=== PATIENT | male | born 1935 | race Caucasian/White ===

== ENCOUNTER 2020-08-31 18:53 | Inpatient (IN) ==
[2020-08-31] MEDS ORDERED: ACETAMINOPHEN 500 MG TAB PO STA (19:19)
--- NOTE | 2020-08-31 19:27 | Emergency Department Note ---
History of Present Illness General Chief complaint: Illness Stated complaint: ILLNESS Time Seen by Provider: 08/31/20 19:04 Source: patient History of Present Illness Provider complaint: Sore throat and cough Onset (ago): day(s) Location: mouth and chest Radiation: non-radiation Severity: mild Pain Consistency: + intermittent Quality: + dull Relieved By: + none Associated symptoms: + cough, + fever/chills and + shortness of breath; no chest pain, no headaches and no nausea/vomiting This is an 85-year-old male who presents with sore throat and cough with shortness of breath since yesterday. The patient states that his was recently diagnosed with COVID-19 admitted to the hospital 3 days ago. Yesterday patient developed a sore throat and a nonproductive cough. He also developed some shortness of breath. He denies any chest pain, loss of taste or smell, diarrhea, abdominal pain, urinary symptoms or vomiting. He does have a fever. Home Medications Home Medications Medication Instructions Recorded Confirmed Type aspirin 81 mg tablet,delayed 81 mg PO DAILY 08/05/20 08/31/20 History release diphenhydramine HCl 25 mg capsule 25 mg PO HS PRN cap 08/05/20 08/31/20 History escitalopram oxalate 5 mg tablet 5 mg PO DAILY #30 tab 08/05/20 08/31/20 Rx valacyclovir 500 mg tablet 500 mg PO BID #60 tab 08/22/20 08/31/20 Rx Allergies Allergy/AdvReac Type Severity Reaction Status Date / Time No Known Allergies Allergy Mild Verified 08/05/20 13:58 Past Med/Surg History Medical History CLL (chronic lymphocytic leukemia) Depression Prostate cancer Skin cancer Surgical History History of prostate surgery Family History Denies family history of Ovarian cancer Prostate cancer Myocardial infarction Breast cancer Colorectal cancer Social History Smoking Status: Never smoker Hx Alcohol Use: No Hx Substance Use: No Preferred Language: Indian marital status: Current Living Situation: Spouse current occupational status: retired How many Children do You have: 0 Feels Safe at Home: Yes Dental Care, Regularly: Yes Seatbelt Use: always Sunscreen Use: No Review of Systems See HPI for pertinent positives & negatives. and A total of 10 systems reviewed and were otherwise negative Physical Exam Vital Signs Vital Signs - 24 hr 08/31/20 19:01 08/31/20 19:03 08/31/20 19:06 Temperature 38.6 C H Temperature Source Oral Pulse Rate 83 81 80 Pulse Rate from SpO2 Sensor 81 80 Respiratory Rate 20 24 Respiratory Effort / Characteristics Non-Labored Spontaneous Respiratory Depth Normal Respiratory Pattern Regular Blood Pressure 125/60 125/60 Blood Pressure Mean 81 78 Pulse Oximetry 88 L 88 L 90 Oxygen Delivery Method Room Air Oxygen Flow Rate Sepsis Recent Fever Within 48 Hours Yes Sepsis New/Unexplained Change in Mental Status No Sepsis Action Taken by Nursing No Action Required 08/31/20 19:25 08/31/20 19:30 08/31/20 20:00 Temperature Temperature Source Pulse Rate 80 75 Pulse Rate from SpO2 Sensor 81 75 Respiratory Rate 16 24 Respiratory Effort / Characteristics Respiratory Depth Respiratory Pattern Blood Pressure 112/58 L Blood Pressure Mean 81 Pulse Oximetry 92 92 Oxygen Delivery Method Nasal Cannula Oxygen Flow Rate 2 Sepsis Recent Fever Within 48 Hours Sepsis New/Unexplained Change in Mental Status Sepsis Action Taken by Nursing 08/31/20 20:01 08/31/20 20:30 08/31/20 21:00 Temperature Temperature Source Pulse Rate 78 75 68 Pulse Rate from SpO2 Sensor 78 75 67 Respiratory Rate 20 19 19 Respiratory Effort / Characteristics Respiratory Depth Respiratory Pattern Blood Pressure 113/48 L 110/59 L 104/53 L Blood Pressure Mean 72 74 69 Pulse Oximetry 90 91 92 Oxygen Delivery Method Oxygen Flow Rate Sepsis Recent Fever Within 48 Hours Sepsis New/Unexplained Change in Mental Status Sepsis Action Taken by Nursing 08/31/20 21:30 08/31/20 22:00 08/31/20 22:30 Temperature Temperature Source Pulse Rate 57 L 61 59 L Pulse Rate from SpO2 Sensor 57 L 60 59 L Respiratory Rate 17 23 20 Respiratory Effort / Characteristics Respiratory Depth Respiratory Pattern Blood Pressure 102/53 L 107/55 L 114/63 Blood Pressure Mean 65 74 79 Pulse Oximetry 94 95 93 Oxygen Delivery Method Nasal Cannula Nasal Cannula Nasal Cannula Oxygen Flow Rate 2 2 2 Sepsis Recent Fever Within 48 Hours Sepsis New/Unexplained Change in Mental Status Sepsis Action Taken by Nursing 10/07/20 23:21 Temperature Temperature Source Pulse Rate 54 L Pulse Rate from SpO2 Sensor Respiratory Rate 18 Respiratory Effort / Characteristics Respiratory Depth Respiratory Pattern Blood Pressure 114/69 Blood Pressure Mean Pulse Oximetry 92 Oxygen Delivery Method Nasal Cannula Oxygen Flow Rate 2 Sepsis Recent Fever Within 48 Hours Sepsis New/Unexplained Change in Mental Status Sepsis Action Taken by Nursing Constitutional: Vital signs reviewed. Hypoxemic. Febrile. Eyes: Pupils are equal round reactive to light. Conjunctiva are noninjected. ENT: Pharynx is clear without erythema or exudate. Mucous membranes are moist. Neck supple without meningeal signs. Respiratory: Clear to auscultation bilaterally. Breath sounds are equal bilaterally. Cardiovascular: Regular rate and rhythm. No rubs or gallops. GI: Soft, nondistended and nontender. Bowel sounds are present. Musculoskeletal: No peripheral edema. No lower extremity tenderness. Integumentary: No cyanosis. or jaundice. Neurological: The patient is awake and alert. No focal deficits. Psychiatric: Normal affect. Not anxious appearing. Course Administered Medications Discontinued Medications Acetaminophen (Acetaminophen 500 Mg Tab) 1,000 mg PO NOW STA Stop: 08/31/20 19:20 Last Admin: 08/31/20 20:01 Dose: 1,000 mg Documented by: [id number] Dexamethasone (Dexamethasone Sod Inj 10 Mg/Ml Vial) 6 mg IV NOW ONE Stop: 08/31/20 21:09 Last Admin: 08/31/20 21:45 Dose: 6 mg Documented by: [id number] Critical Care Time Critical Care Time: Yes Total Critical Care Time: 35 I have personally spent approximately 35 minutes of critical care time in the direct management of this patient. This includes bedside care, interpretation of diagnostic studies, and testing, discussion with consultants, patient, and family members, and other required patient management activities. These minutes are in excess of all separately billable procedures. Medical Decision Making Differential Diagnosis Pneumonia, bacteremia, bronchitis, COVID-19, pharyngitis Medical Records Attestation: I reviewed the patient's medical records. I did perform a limited focused review of portions of the patient's old chart on the electronic medical record. The patient has had no recent pertinent visits to this hospital. Home Medications Current Medication List: was personally reviewed by me Laboratory Data Attestation: I reviewed the patient's lab results. Result diagrams: 08/31/20 19:45 08/31/20 19:45 Lab Results 08/31/20 08/31/20 08/31/20 Range/Units 19:45 19:45 19:45 WBC 6.93 (4.8-10.8) K/uL RBC 3.62 L (4.7-6.1) M/uL Hgb 11.3 L (14.0-18.0) g/dL Hct 33.7 L (42-52) % MCV 93.1 (80-100) fL MCH 31.2 (25-34) pg MCHC 33.5 (32-36) g/dL RDW Std Deviation 49.1 H (36.4-46.3) fL RDW Coeff of Geovany 14.7 H (11.5-14.5) % Plt Count 186 (130-400) K/uL MPV 9.3 (7.4-10.4) fL Immature Gran % (Auto) 0.1 % Neut % (Auto) 65.7 % Lymph % (Auto) 28.9 % [place] % (Auto) 5.3 % Eos % (Auto) 0.0 % Baso % (Auto) 0.0 % Neut # (Auto) 4.55 (1.4-6.5) K/uL Lymph # (Auto) 2.00 (1.2-3.4) K/uL [place] # (Auto) 0.37 (0.11-0.59) K/uL Eos # (Auto) 0.00 (0-0.5) K/uL Baso # (Auto) 0.00 (0-0.2) K/uL Immature Gran # (Auto) 0.01 (0.00-0.02) K/uL PT 11.3 (9.0-12.0) Seconds INR 1.1 (0.9-1.1) APTT 34.5 H (21.0-31.0) Seconds PTT Ratio 1.2 Sodium 137 (136-145) mmol/L Potassium 4.3 (3.5-5.1) mmol/L Chloride 105 (98-107) mmol/L Carbon Dioxide 27 (21-32) mmol/L Anion Gap 5.0 (3-11) BUN 23 H (7-18) mg/dl Creatinine 0.95 (0.6-1.4) mg/dl Est Cr Clr Drug Dosing 48.8 ml/min Est GFR ( Amer) 83.1 Est GFR (Non-Af Amer) 71.7 BUN/Creatinine Ratio 23.9 H (10-20) Glucose 119 H (70-99) mg/dl Calcium 8.7 (8.5-10.1) mg/dl Total Bilirubin 0.5 (0.2-1) mg/dl AST 39 H (15-37) U/L ALT 33 (12-78) U/L Alkaline Phosphatase 93 (45-117) U/L Troponin I < 0.015 (0-0.045) ng/ml Total Protein 7.3 (6.4-8.2) gm/dl Albumin 3.4 (3.4-5.0) gm/dl Globulin 3.9 (2.5-4.0) gm/dl Albumin/Globulin Ratio 0.9 (0.9-2) COVID-19 Eval Order COVID-19 PCR (Negative) Influenza Type A (PCR) (Neg) Influenza Type B (PCR) (Neg) 08/31/20 08/31/20 08/31/20 Range/Units 19:45 19:45 19:45 WBC (4.8-10.8) K/uL RBC (4.7-6.1) M/uL Hgb (14.0-18.0) g/dL Hct (42-52) % MCV (80-100) fL MCH (25-34) pg MCHC (32-36) g/dL RDW Std Deviation (36.4-46.3) fL RDW Coeff of Geovany (11.5-14.5) % Plt Count (130-400) K/uL MPV (7.4-10.4) fL Immature Gran % (Auto) % Neut % (Auto) % Lymph % (Auto) % [place] % (Auto) % Eos % (Auto) % Baso % (Auto) % Neut # (Auto) (1.4-6.5) K/uL Lymph # (Auto) (1.2-3.4) K/uL [place] # (Auto) (0.11-0.59) K/uL Eos # (Auto) (0-0.5) K/uL Baso # (Auto) (0-0.2) K/uL Immature Gran # (Auto) (0.00-0.02) K/uL PT (9.0-12.0) Seconds INR (0.9-1.1) APTT (21.0-31.0) Seconds PTT Ratio Sodium (136-145) mmol/L Potassium (3.5-5.1) mmol/L Chloride (98-107) mmol/L Carbon Dioxide (21-32) mmol/L Anion Gap (3-11) BUN (7-18) mg/dl Creatinine (0.6-1.4) mg/dl Est Cr Clr Drug Dosing ml/min Est GFR ( Amer) Est GFR (Non-Af Amer) BUN/Creatinine Ratio (10-20) Glucose (70-99) mg/dl Calcium (8.5-10.1) mg/dl Total Bilirubin (0.2-1) mg/dl AST (15-37) U/L ALT (12-78) U/L Alkaline Phosphatase (45-117) U/L Troponin I (0-0.045) ng/ml Total Protein (6.4-8.2) gm/dl Albumin (3.4-5.0) gm/dl Globulin (2.5-4.0) gm/dl Albumin/Globulin Ratio (0.9-2) COVID-19 Eval Order Covid19 Done at [facility] COVID-19 PCR POSITIVE A* (Negative) Influenza Type A (PCR) Neg for Influ A (Neg) Influenza Type B (PCR) Neg for Influ B (Neg) Imaging Data Radiologist's Impression: XR chest 1V portable CLINICAL HISTORY: Dyspnea COMPARISON STUDY: Chest x-ray dated 09/16/2006 FINDINGS: The heart is at the upper limits of normal in size. There are b ilateral interstitial opacities. There are no pleural effusions.[ IMPRESSION: 1. Bilateral pulmonary interstitial opacities. Likely diagnostic considerations include a bilateral infectious/inflammatory process versus pulmonary edema. Clinical and radiographic follow-up is recommended ACT 112: Negative or not required by law. Electronically signed by: Fabricio Torres M.D. 08/31/2020 8:36 PM ECG Data Attestation: I personally reviewed and interpreted this ECG as follows: Indication: + SOB/dyspnea Rate (beats per minute): 77 Rhythm: + normal sinus ECG ST segments: no ST elevation ECG Findings: + Q waves; no PVCs MDM Narrative I did evaluate the patient as noted above. The patient has been exposed to COVID. He lives in a trailer with his who was just hospitalized for COVID- 19. He is presenting with shortness of breath, sore throat and cough. His pharynx is clear without evidence of erythema. The patient was placed in respiratory isolation. COVID-19 and influenza testing was obtained. He is COVID positive. Influenza testing is negative. IV access was established. I did treat him with Tylenol p.o. He was placed on supplemental oxygen as he is hypoxemic. I did place an order for continuous cardiac monitoring. The monitor showed normal sinus rhythm at a rate of 82 bpm. I did order and personally review the patient's 12-lead EKG as described above. He has no acute ischemic changes. I did order and personally reviewed the images of the patient's chest x-ray as described above. He does have bilateral pulmonary interstitial opacities consistent with COVID-19 pneumonia. I did order a urine analysis. I did order and review the patient's blood work as noted in the electronic medical record. His white blood cell count is not elevated. He does have anemia. His electrolytes are unremarkable. I did treat the patient with Decadron 6 mg IV. I did discuss the case with the hospitalist and caser in. Impression & Plan Pneumonia due to COVID-19 virus, Hypoxia, Anemia Discharge Plan Visit Data Chief Complaint: Illness Stated Complaint: ILLNESS ED Provider: Mike Bartholomew Discharge Problem: Pneumonia due to COVID-19 virus, Hypoxia, Anemia Patient Disposition: Being Evaluated by Hospitalist Discharge Instructions Interventions: ED Discharge Assessment Last Done: 08/31/20 23:21 Forms Stand Alone Forms: My [facility] Prescriptions Prescriptions: No Action valacyclovir 500 mg tablet 500 mg PO BID Qty: 60 RF: 5 aspirin [Adult Low Dose Aspirin] 81 mg tablet,delayed release (DR/EC) 81 mg PO DAILY RF: 0 diphenhydramine HCl [Benadryl] 25 mg capsule 25 mg PO HS PRN (Reason: Unknown) RF: 0 escitalopram oxalate [Lexapro] 5 mg tablet 5 mg PO DAILY Qty: 30 RF: 2 Referrals Referrals: Martina Alvarez MD [Primary Care Provider] - Discharge Problem: Anemia Qualifiers: Anemia type: unspecified type Qualified Code(s): D64.9 - Anemia, unspecified
[2020-08-31 20:01] LABS: Hematocrit (blood only) 33.7 % (42-52); Hemoglobin 11.3 g/dL (14.0-18.0); Immature Granulocytes # (auto) 0.01 K/uL (0.00-0.02); Immature Granulocytes % (auto) 0.1 %; Lymphocytes % (auto) 28.9 %; Mean Corpuscular Hemoglobin 31.2 pg (25-34); Mean Corpuscular Hgb Conc 33.5 g/dL (32-36); Mean Corpuscular Volume 93.1 fL (80-100); Mean Platelet Volume 9.3 fL (7.4-10.4); Monocytes # (auto) 0.37 K/uL (0.11-0.59); Monocytes % (auto) 5.3 %; Neutrophils # (auto) 4.55 K/uL (1.4-6.5); Neutrophils % (auto) 65.7 %; Platelet Count 186 K/uL (130-400); RDW Coefficient of Variation 14.7 % (11.5-14.5); RDW Standard Deviation 49.1 fL (36.4-46.3); Red Blood Count 3.62 M/uL (4.7-6.1); White Blood Count 6.93 K/uL (4.8-10.8)
[2020-08-31 20:15] LABS: INR 1.1 (0.9-1.1); Partial Thromboplastin Ratio 1.2; Partial Thromboplastin Time 34.5 Seconds (21.0-31.0); Prothrombin Time 11.3 Seconds (9.0-12.0)
[2020-08-31 20:17] LABS: Alanine Aminotransferase 33 U/L (12-78); Albumin Level 3.4 gm/dl (3.4-5.0); Aspartate Aminotransferase 39 U/L (15-37); BUN Creatinine Ratio 23.9 (10-20); Blood Urea Nitrogen 23 mg/dl (7-18); Calcium 8.7 mg/dl (8.5-10.1); Carbon Dioxide 27 mmol/L (21-32); Chloride 105 mmol/L (98-107); Creatinine Clr Calc Pharmacy 48.8 ml/min; Est GFR (African American) 83.1; Est GFR (Non-African American) 71.7; Glucose 119 mg/dl (70-99); Potassium 4.3 mmol/L (3.5-5.1); Sodium 137 mmol/L (136-145)
[2020-08-31 20:22] LABS: Albumin Globulin Ratio 0.9 (0.9-2); Alkaline Phosphatase 93 U/L (45-117); Bilirubin,Total 0.5 mg/dl (0.2-1); Globulin 3.9 gm/dl (2.5-4.0); Total Protein 7.3 gm/dl (6.4-8.2); Troponin I < 0.015 ng/ml (0-0.045)
--- NOTE | 2020-08-31 20:37 | XRay Report ---
XR chest 1V portable CLINICAL HISTORY: Dyspnea COMPARISON STUDY: Chest x-ray dated 09/16/2006 FINDINGS: The heart is at the upper limits of normal in size. There are bilateral interstitial opacit ies. There are no pleural effusions.[ IMPRESSION: 1. Bilateral pulmonary interstitial opacities. Likely diagnostic considerations include a bilateral i nfectious/inflammatory process versus pulmonary edema. Clinical and radiographic follow-up is recomme nded ACT 112: Negative or not required by law. Electronically signed by: Fabricio Torres M.D. 08/31/2020 8:36 PM
[2020-08-31 20:52] LABS: Influenza A virus by PCR Neg for Influ A (Neg); Influenza B virus by PCR Neg for Influ B (Neg)
[2020-08-31] MEDS ORDERED: DEXAMETHASONE SOD INJ 10 MG/ML VIAL IV ONE (21:08)
--- NOTE | 2020-08-31 22:50 | History & Physical Report ---
Date of Service August 31, 2020 Assessment & Plan (1) Pneumonia due to COVID-19 virus: Transient hypoxia at time of presentation. During my admission assessment his O2 sats were mid-90s in room air. At minimum will Rx with 10-day course of decadron 6mg IV daily. I gave FDA-produced convalescent plasma handout to the patient while I was in the room and tried to explain the consent process for the plasma but he didn't seem to comprehend the reason for the plasma nor the risks/benefits. After speaking with his step-daughter who is his POA his intellectual level is about that of middle school. This, coupled with encephalopathy, makes the informed consent process not possible. If patient continues with hypoxia or continues with supplemental oxygen requirement then will consent his step-daughter for plasma and order it on 09/01. At this time he is borderline a candidate for remdesivir. Will hold off on giving tonight but will have low threshold for starting if any worsening. Continue supportive care, airborne isolation, etc. (2) Acute metabolic encephalopathy: 2nd to COVID-19. Supportive care. (3) CLL (chronic lymphocytic leukemia): CBC relatively benign. No lymphocytosis or smudge cells seen. PCP records indicate he is not following with oncology. (4) Prostate cancer: Treated with surgery? xrt? No issues at this time. (5) Depression: Continue lexapro 5mg daily. (6) Intellectual disability: Noted. (7) DVT prophylaxis: Lovenox 30mg BID. Higher dose of chemical means due to COVID. NS x 1 liter. SW consult - complex social situation. Updated Zakiya Barraza, step-daughter, by phone extensively. History of Present Illness Chief Complaint: sore throat, cough Primary Care Provider: Martina Alvarez MD 85yo male with h/o CLL per records, prostate cancer (treated with XRT??), and depression who presents from home via EMS due to cough, mild shortness of breath, and sore throat. He was unclear during the history if he had fever at home. He did have chills, however. was diagnosed with COVID-19 several days ago and is currently hospitalized. He is uncertain where the two of them contracted the virus. Cough is nonproductive. Denies headache, loss of taste/smell, runny nose, nausea, vomiting, or abdominal pain. Denies myalgias. Patient had difficulty telling me when his symptoms began but it sounds like he fell ill earlier today. In the ER tonight patient's rapid COVID-19 test was positive. He was given d ecadron 6mg IV x 1. During my assessment the patient appeared to have significant hearing impairment. He also was confused, telling me that the year was 1919. He did not know the day of the week. He reports that he continues to drive a motor vehicle. Only drives to the grocery store, however. Allergies Allergy/AdvReac Type Severity Reaction Status Date / Time No Known Allergies Allergy Mild Verified 08/05/20 13:58 Home Medications Home Medications Medication Instructions Recorded Confirmed Type aspirin 81 mg tablet,delayed 81 mg PO DAILY 08/05/20 08/31/20 History release diphenhydramine HCl 25 mg capsule 25 mg PO HS PRN cap 08/05/20 08/31/20 History escitalopram oxalate 5 mg tablet 5 mg PO DAILY #30 tab 08/05/20 08/31/20 Rx valacyclovir 500 mg tablet 500 mg PO BID #60 tab 08/22/20 08/31/20 Rx Past Med/Surg History Medical History (Updated 09/01/20 @ 00:40 by Rj Alvarado) CLL (chronic lymphocytic leukemia) Depression Intellectual disability Prostate cancer Skin cancer Surgical History History of prostate surgery Family History (Updated 09/01/20 @ 00:33 by Rj Alvarado) Father , "old age" No problems noted. Mother , "old age" No problems noted. 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 How many Children do You have: 0 Feels Safe at Home: Yes Safety Concerns: Feels Safe At This Time Dental Care, Regularly: Yes Seatbelt Use: always Sunscreen Use: No Assistive Devices: Cane and Walker Review of Systems Constitutional: + fever, + chills and + fatigue; no body aches and no anorexia Eyes: no worsening vision Ear, Nose, Mouth, Throat: + sore throat; no nasal congestion Respiratory: + cough and + dyspnea Cardiovascular: no chest pain Gastrointestinal: no abdominal pain, no nausea and no vomiting Genitourinary: no dysuria Musculoskeletal: no myalgia Integumentary: no rash skin cancer removed from back Neurologic: + generalized weakness Psychiatric: + depression Endocrine: denies diabetes Hematologic / Lymphatic: no easy bruising Physical Exam Constitutional: + thin and + altered mental status; no acute distress Eyes: PERRL ENMT: Mouth: + oropharynx abnormality (erythematous ) and + dry oral mucous membranes Neck: trachea midline, no thyromegaly Respiratory: no respiratory distress Auscultation: + rales (fine - both bases, L>R ); no wheezes Cardiovascular: Rate/Rhythm: regular rate and regular rhythm Heart Sounds: normal S1 and normal S2; no murmur Vessels: posterior tibial pulses present and dorsalis pedis pulses present; no JVD Extremities: no edema Gastrointestinal (Abdomen): normal bowel sounds, soft, nontender, no hepatosplenomegaly Musculoskeletal: Extremities: + clubbing Skin: no rashes, warm and dry Neurologic: moves all extremities Psychiatric: Orientation: alert, oriented to person and oriented to place; + not oriented to time Lymphatic: no cervical lymphadenopathy Results & Data Results & [facility] Vital Signs (Past 12 Hours) Vital Signs Temp Pulse Resp BP Pulse Ox 08/31/20 22:30 59 L 20 114/63 93 08/31/20 22:00 61 23 107/55 L 95 08/31/20 21:30 57 L 17 102/53 L 94 08/31/20 21:00 68 19 104/53 L 92 08/31/20 20:30 75 19 110/59 L 91 08/31/20 20:01 78 20 113/48 L 90 08/31/20 20:00 75 24 08/31/20 19:30 80 16 112/58 L 92 08/31/20 19:25 92 08/31/20 19:06 80 90 08/31/20 19:03 81 24 125/60 88 L 08/31/20 19:01 38.6 C H 83 20 125/60 88 L Laboratory Results Laboratory Results - last 24 hr 08/31/20 08/31/20 08/31/20 19:45 19:45 19:45 WBC 6.93 RBC 3.62 L Hgb 11.3 L Hct 33.7 L MCV 93.1 MCH 31.2 MCHC 33.5 RDW Std Deviation 49.1 H RDW Coeff of Geovany 14.7 H Plt Count 186 MPV 9.3 Immature Gran % (Auto) 0.1 Neut % (Auto) 65.7 Lymph % (Auto) 28.9 [place] % (Auto) 5.3 Eos % (Auto) 0.0 Baso % (Auto) 0.0 Neut # (Auto) 4.55 Lymph # (Auto) 2.00 [place] # (Auto) 0.37 Eos # (Auto) 0.00 Baso # (Auto) 0.00 Immature Gran # (Auto) 0.01 PT 11.3 INR 1.1 APTT 34.5 H PTT Ratio 1.2 Sodium 137 Potassium 4.3 Chloride 105 Carbon Dioxide 27 Anion Gap 5.0 BUN 23 H Creatinine 0.95 Est Cr Clr Drug Dosing 48.8 Est GFR ( Amer) 83.1 Est GFR (Non-Af Amer) 71.7 BUN/Creatinine Ratio 23.9 H Glucose 119 H Calcium 8.7 Total Bilirubin 0.5 AST 39 H ALT 33 Alkaline Phosphatase 93 Troponin I < 0.015 Total Protein 7.3 Albumin 3.4 Globulin 3.9 Albumin/Globulin Ratio 0.9 COVID-19 Eval Order COVID-19 PCR Influenza Type A (PCR) Influenza Type B (PCR) 08/31/20 08/31/20 08/31/20 19:45 19:45 19:45 WBC RBC Hgb Hct MCV MCH MCHC RDW Std Deviation RDW Coeff of Geovany Plt Count MPV Immature Gran % (Auto) Neut % (Auto) Lymph % (Auto) [place] % (Auto) Eos % (Auto) Baso % (Auto) Neut # (Auto) Lymph # (Auto) [place] # (Auto) Eos # (Auto) Baso # (Auto) Immature Gran # (Auto) PT INR APTT PTT Ratio Sodium Potassium Chloride Carbon Dioxide Anion Gap BUN Creatinine Est Cr Clr Drug Dosing Est GFR ( Amer) Est GFR (Non-Af Amer) BUN/Creatinine Ratio Glucose Calcium Total Bilirubin AST ALT Alkaline Phosphatase Troponin I Total Protein Albumin Globulin Albumin/Globulin Ratio COVID-19 Eval Order Covid19 Done at [facility] COVID-19 PCR POSITIVE A* Influenza Type A (PCR) Neg for Influ A Influenza Type B (PCR) Neg for Influ B Diagnostic Findings cxr - IMPRESSION: 1. Bilateral pulmonary interstitial opacities. Likely diagnostic considerations include a bilateral infectious/inflammatory process versus pulmonary edema. Clinical and radiographic follow-up is recommended Code Status & VTE Plan Code Status DNR/DNI - per POA (step-daughter) VTE Prophylaxis Plan VTE Prophylaxis will be ordered: Yes PG Care Time/CCT Total # of Minutes Spent Total Time Spent with Patient: Total time spent is greater than 50% in coordination of care (as documented) at patient's floor/unit and/or counseling patient: Coding Level of Care Code 42207 Initial Inpt Care Lvl 2 Diagnoses Pneumonia due to COVID-19 virus U07.1; J12.89 Acute metabolic encephalopathy G93.41 CLL (chronic lymphocytic leukemia) C91.10 Prostate cancer C61 Depression F32.9 Depression Type: unspecified Intellectual disability F79 DVT prophylaxis Z29.9 (1) Depression Depression Type: unspecified Qualified Code(s): F32.9 - Major depressive disorder, single episode, unspecified
[2020-09-01] MEDS ORDERED: ONDANSETRON INJ 2 MG/ML 2 ML VIAL IV PRN (00:14)
[2020-09-01] MEDS ORDERED: SODIUM CHLORIDE 0.9% 1000ML 1,000 ML IV SCH (00:14)
[2020-09-01] MEDS ORDERED: ALUMINUM/MAGNESIUM SUSP 30 ML UDC PO PRN (00:14)
[2020-09-01 08:51] LABS: Hematocrit (blood only) 38.4 % (42-52); Hemoglobin 12.3 g/dL (14.0-18.0); Mean Corpuscular Hemoglobin 30.1 pg (25-34); Mean Corpuscular Volume 94.1 fL (80-100); Mean Platelet Volume 9.5 fL (7.4-10.4); Platelet Count 221 K/uL (130-400); RDW Coefficient of Variation 14.7 % (11.5-14.5); RDW Standard Deviation 49.9 fL (36.4-46.3); Red Blood Count 4.08 M/uL (4.7-6.1); White Blood Count 3.76 K/uL (4.8-10.8)
[2020-09-01] MEDS ORDERED: dexAMETHasone 6 MG in DEXTROSE 5% 25 ML IV SCH (09:00)
[2020-09-01 09:14] LABS: Albumin Level 3.1 gm/dl (3.4-5.0); BUN Creatinine Ratio 25.2 (10-20); Calcium 8.9 mg/dl (8.5-10.1); Creatinine Clr Calc Pharmacy 57.9 ml/min; Est GFR (African American) 93.1; Est GFR (Non-African American) 80.3; Magnesium 2.4 mg/dl (1.8-2.4); Potassium 4.3 mmol/L (3.5-5.1)
[2020-09-01 09:16] LABS: D Dimer 540 ug/L FEU (0-500)
[2020-09-01 09:17] LABS: Albumin Globulin Ratio 0.8 (0.9-2); Bilirubin,Total 0.6 mg/dl (0.2-1); Total Protein 7.1 gm/dl (6.4-8.2)
[2020-09-01 09:44] LABS: Lymphocytes # (auto) 2.15 K/uL (1.2-3.4); Lymphocytes % (auto) 57.2 %; Monocytes # (auto) 0.17 K/uL (0.11-0.59); Monocytes % (auto) 4.5 %; Neutrophils # (auto) 1.44 K/uL (1.4-6.5); Neutrophils % (auto) 38.3 %; Smudge Cells Present
[2020-09-01] MEDS ORDERED: REMDESIVIR 200 mg: Day 1 IV ONE (10:00)
[2020-09-01] MEDS: ASPIRIN 81 MG ECTAB PO SCH (10:45)
[2020-09-01] MEDS: ESCITALOPRAM OXALATE 10 MG TAB PO SCH (10:45)
[2020-09-01] MEDS: ENOXAPARIN INJ 30 MG/0.3 ML SYR SQ SCH ×2 (10:46→20:19)
[2020-09-01] MEDS: CEROVITE ADV FORMULA TAB PO SCH (10:47)
[2020-09-01] MEDS: DEXAMETHASONE SOD PHOSPHATE 6 MG in SYRINGE 0 ML IV SCH (10:48)
[2020-09-01] MEDS: NSS 30mL Flush, Days 1-5 IV SCH (10:48)
--- NOTE | 2020-09-01 15:35 | Hospitalist Progress Note ---
Date of Service September 01, 2020 Assessment & Plan (1) Pneumonia due to COVID-19 virus: With hypoxia of 88% on room air upon admission. Continues to be requiring 2 L nasal cannula with pulse ox 91-93% Otherwise doing fairly well and no significant symptoms. He did have a fever upon arrival but none since. Chest x-ray does show bilateral pulmonary interstitial opacities and he has some crackles on examination Flu is negative He is tolerating p.o. -We will continue 10-day course of decadron 6mg IV daily. Last dose will be on 09/09 -I did try to discuss convalescent plasma and Remdesivir with the patient and he seemed agreeable to taking treatments to potentially help fight COVID-19, however I did also obtain verbal consent over the phone with his step-daughter who is his HCPOA his intellectual level is about that of middle school. -We will give convalescent plasma -Also start Remdesivir x5-day course Continue supportive care, airborne isolation, etc. -Follow CBC, CMP, CRP, ESR, ferritin, LDH, d-dimer He is early in the course of illness at this time Tylenol as needed for fevers or myalgias IV fluids discontinued -Follow blood cultures (2) Acute respiratory failure with hypoxia: As above Continue supplemental O2 and wean off as able to (3) Acute metabolic encephalopathy: 2nd to COVID-19 and hypoxia as well as febrile illness. Now seems to be resolved (4) CLL (chronic lymphocytic leukemia): CBC relatively benign except smudge cells are seen. PCP records indicate he is not following with oncology. (5) Prostate cancer: Treated with surgery? xrt? No issues at this time. (6) Depression: Continue lexapro 5mg daily. (7) Intellectual disability: Noted. (8) DVT prophylaxis: Lovenox 30mg BID. Higher dose of chemical means due to COVID. Updated Zakiya Barraza, step-daughter, by phone Full code Admission and Anticipated Discharge Date Admission Date: August 31, 2020 Subjective Patient reports feeling well. He denies chest pains or shortness of breath, denies cough. Denies nausea or vomiting. No abdominal pain or diarrhea. He is eating and drinking well. He remains on 2 L of oxygen with pulse ox in the low 90s. He understands that he has COVID-19. I told him that I am also taking care of his and he did inquire as to her status in the hospital. No other concerns. Telemetry with sinus bradycardia and rates in the 50s. I discussed his care at length with his stepdaughter/healthcare power of senior attorney and she stated that normally he is very independent and active, fairly healthy. She is agreeable to and gives verbal consent for giving him Remdesivir and convalescent plasma. She also reports that he had no symptoms at all until the day of admission on 08/31. However, he was with his for the whole week that she was sick and declining and had COVID Review of Systems Review of Systems: All systems reviewed & are unremarkable except as noted in HPI & below Physical Exam Constitutional: WD/WN, vitals as above Eyes: PERRL, conjunctivae normal, anicteric sclerae ENMT: external ear and nose normal, oropharynx normal Neck: trachea midline, no thyromegaly Respiratory: normal respiratory effort; no labored breathing and not tachypneic Auscultation: + crackles (Mild at the bases bilaterally); no rales, no rhonchi and no wheezes Cardiovascular: RRR, no murmur, no edema Chest (Breasts): Chest: normal inspection of chest Gastrointestinal (Abdomen): normal bowel sounds, soft, nontender, no hepatosplenomegaly Musculoskeletal: Extremities: extremities normal to inspection; no cyanosis and no clubbing Skin: no rashes, warm and dry Neurologic: moves all extremities and awake; no focal motor deficits Psychiatric: A+Ox3, euthymic affect Lymphatic: no lymphedema Results & Data Results & Data ([facility]) Vital Signs (Past 12 Hours) Vital Signs Temp Pulse Pulse Resp BP BP Pulse Ox 09/01/20 12:06 36.7 C 60 16 120/72 91 09/01/20 08:00 53 L 09/01/20 07:39 36.4 C L 57 L 16 127/64 91 Laboratory Results 09/01/20 09/01/20 09/01/20 Range/Units 15:48 08:17 08:17 WBC (4.8-10.8) K/uL RBC (4.7-6.1) M/uL Hgb (14.0-18.0) g/dL Hct (42-52) % MCV (80-100) fL MCH (25-34) pg MCHC (32-36) g/dL RDW Std Deviation (36.4-46.3) fL RDW Coeff of Geovany (11.5-14.5) % Plt Count (130-400) K/uL MPV (7.4-10.4) fL Immature Gran % (Auto) % Neut % (Auto) % Lymph % (Auto) % [place] % (Auto) % Eos % (Auto) % Baso % (Auto) % Neut # (Auto) (1.4-6.5) K/uL Lymph # (Auto) (1.2-3.4) K/uL [place] # (Auto) (0.11-0.59) K/uL Eos # (Auto) (0-0.5) K/uL Baso # (Auto) (0-0.2) K/uL Immature Gran # (Auto) (0.00-0.02) K/uL Smudge Cells D-Dimer 540 H* (0-500) ug/L FEU Sodium 138 (136-145) mmol/L Potassium 4.3 (3.5-5.1) mmol/L Chloride 106 (98-107) mmol/L Carbon Dioxide 29 (21-32) mmol/L Anion Gap 4.0 (3-11) BUN 20 H (7-18) mg/dl Creatinine 0.80 (0.6-1.4) mg/dl Est Cr Clr Drug Dosing 57.9 ml/min Est GFR ( Amer) 93.1 Est GFR (Non-Af Amer) 80.3 BUN/Creatinine Ratio 25.2 H (10-20) Glucose 144 H (70-99) mg/dl Calcium 8.9 (8.5-10.1) mg/dl Magnesium 2.4 (1.8-2.4) mg/dl Total Bilirubin 0.6 (0.2-1) mg/dl AST 30 (15-37) U/L ALT 30 (12-78) U/L Alkaline Phosphatase 88 (45-117) U/L Total Protein 7.1 (6.4-8.2) gm/dl Albumin 3.1 L (3.4-5.0) gm/dl Globulin 4.0 (2.5-4.0) gm/dl Albumin/Globulin Ratio 0.8 L (0.9-2) Blood Type A Negative Antibody Screen NEGATIVE 09/01/20 Range/Units 08:17 WBC 3.76 L (4.8-10.8) K/uL RBC 4.08 L (4.7-6.1) M/uL Hgb 12.3 L (14.0-18.0) g/dL Hct 38.4 L (42-52) % MCV 94.1 (80-100) fL MCH 30.1 (25-34) pg MCHC 32.0 (32-36) g/dL RDW Std Deviation 49.9 H (36.4-46.3) fL RDW Coeff of Geovany 14.7 H (11.5-14.5) % Plt Count 221 (130-400) K/uL MPV 9.5 (7.4-10.4) fL Immature Gran % (Auto) 0.0 % Neut % (Auto) 38.3 % Lymph % (Auto) 57.2 % [place] % (Auto) 4.5 % Eos % (Auto) 0.0 % Baso % (Auto) 0.0 % Neut # (Auto) 1.44 (1.4-6.5) K/uL Lymph # (Auto) 2.15 (1.2-3.4) K/uL [place] # (Auto) 0.17 (0.11-0.59) K/uL Eos # (Auto) 0.00 (0-0.5) K/uL Baso # (Auto) 0.00 (0-0.2) K/uL Immature Gran # (Auto) 0.00 (0.00-0.02) K/uL Smudge Cells Present D-Dimer (0-500) ug/L FEU Sodium (136-145) mmol/L Potassium (3.5-5.1) mmol/L Chloride (98-107) mmol/L Carbon Dioxide (21-32) mmol/L Anion Gap (3-11) BUN (7-18) mg/dl Creatinine (0.6-1.4) mg/dl Est Cr Clr Drug Dosing ml/min Est GFR ( Amer) Est GFR (Non-Af Amer) BUN/Creatinine Ratio (10-20) Glucose (70-99) mg/dl Calcium (8.5-10.1) mg/dl Magnesium (1.8-2.4) mg/dl Total Bilirubin (0.2-1) mg/dl AST (15-37) U/L ALT (12-78) U/L Alkaline Phosphatase (45-117) U/L Total Protein (6.4-8.2) gm/dl Albumin (3.4-5.0) gm/dl Globulin (2.5-4.0) gm/dl Albumin/Globulin Ratio (0.9-2) Blood Type Antibody Screen PG Care Time/CCT Total # of Minutes Spent Total Time Spent with Patient: Total time spent is greater than 50% in coordination of care (as documented) at patient's floor/unit and/or counseling patient: Coding Level of Care Code 38888 Subseq Hosp Care Lvl 3 Diagnoses Pneumonia due to COVID-19 virus U07.1; J12.89 Acute respiratory failure with hypoxia J96.01 Acute metabolic encephalopathy G93.41 CLL (chronic lymphocytic leukemia) C91.10 Prostate cancer C61 Depression F32.9 Depression Type: unspecified Intellectual disability F79 DVT prophylaxis Z29.9 (1) Depression Depression Type: unspecified Qualified Code(s): F32.9 - Major depressive disorder, single episode, unspecified
--- NOTE | 2020-09-01 17:42 | Electrocardiogram Report ---
Test Reason : Blood Pressure : / mmHG Vent. Rate : 077 BPM Atrial Rate : 077 BPM P-R Int : 122 ms QRS Dur : 084 ms QT Int : 382 ms P-R-T Axes : 049 -16 013 degrees QTc Int : 432 ms Poor data quality, interpretation may be adversely affected Normal sinus rhythm Nonspecific ST abnormality Abnormal ECG Confirmed by Reji Ochoa ([id number]) on 09/01/2020 5:42:32 PM Referred By: REFERRED SELF Confirmed By:Rehan Ochoa
[2020-09-02] MEDS: ACETAMINOPHEN 325 MG TAB PO PRN (02:03)
[2020-09-02 07:17] LABS: Hematocrit (blood only) 34.7 % (42-52); Hemoglobin 11.6 g/dL (14.0-18.0); Immature Granulocytes # (auto) 0.02 K/uL (0.00-0.02); Immature Granulocytes % (auto) 0.3 %; Lymphocytes # (auto) 2.25 K/uL (1.2-3.4); Lymphocytes % (auto) 30.2 %; Mean Corpuscular Hgb Conc 33.4 g/dL (32-36); Mean Corpuscular Volume 92.8 fL (80-100); Mean Platelet Volume 9.6 fL (7.4-10.4); Monocytes # (auto) 0.39 K/uL (0.11-0.59); Monocytes % (auto) 5.2 %; Neutrophils # (auto) 4.79 K/uL (1.4-6.5); Neutrophils % (auto) 64.3 %; Platelet Count 231 K/uL (130-400); RDW Coefficient of Variation 14.7 % (11.5-14.5); RDW Standard Deviation 49.2 fL (36.4-46.3); Red Blood Count 3.74 M/uL (4.7-6.1); White Blood Count 7.45 K/uL (4.8-10.8)
[2020-09-02 07:33] LABS: D Dimer 220 ug/L FEU (0-500)
[2020-09-02 07:45] LABS: Potassium 4.1 mmol/L (3.5-5.1)
[2020-09-02 07:46] LABS: Albumin Level 2.8 gm/dl (3.4-5.0); BUN Creatinine Ratio 33.2 (10-20); Calcium 8.3 mg/dl (8.5-10.1); Creatinine Clr Calc Pharmacy 55.1 ml/min; Est GFR (African American) 91.2; Est GFR (Non-African American) 78.7
[2020-09-02 07:50] LABS: Albumin Globulin Ratio 0.8 (0.9-2); Bilirubin,Total 0.3 mg/dl (0.2-1); C Reactive Protein 4.91 mg/dl (0-0.29); Ferritin 311.4 ng/ml (8-388); Globulin 3.4 gm/dl (2.5-4.0); Total Protein 6.2 gm/dl (6.4-8.2)
[2020-09-02] MEDS: ESCITALOPRAM OXALATE 10 MG TAB PO SCH (09:31)
[2020-09-02] MEDS: CEROVITE ADV FORMULA TAB PO SCH (09:31)
[2020-09-02] MEDS: ASPIRIN 81 MG ECTAB PO SCH (09:32)
[2020-09-02] MEDS: DEXAMETHASONE SOD PHOSPHATE 6 MG in SYRINGE 0 ML IV SCH (09:32)
[2020-09-02] MEDS: ENOXAPARIN INJ 30 MG/0.3 ML SYR SQ SCH ×2 (09:32→21:06)
[2020-09-02] MEDS: NSS 30mL Flush, Days 1-5 IV SCH (09:37)
[2020-09-02] MEDS: REMDESIVIR 100mg: Days 2-5 IV SCH (09:38)
--- NOTE | 2020-09-02 22:58 | Hospitalist Progress Note ---
Date of Service September 02, 2020 Assessment & Plan (1) Pneumonia due to COVID-19 virus: With hypoxia of 88% on room air upon admission. Continues to be requiring 2 L nasal cannula with pulse ox improving to 95% Otherwise doing fairly well and no significant symptoms. He did have a fever upon arrival but none since. Chest x-ray does show bilateral pulmonary interstitial opacities and he has some crackles on examination Flu is negative He is tolerating p.o. -We will continue 10-day course of decadron 6mg daily. Last dose will be on 09/09. Will convert to oral for tomorrow as he is tolerating p.o. well. -Start Protonix for GI protection while on dexamethasone -He received 1 unit of convalescent plasma -Continue Remdesivir x5-day course-started on 09/01 Continue supportive care, airborne isolation, etc. -Follow CBC, CMP, CRP, ESR, ferritin, LDH, [id number] seem to be improving t tracy He is early in the course of illness at this time but doing very well Tylenol as needed for fevers or myalgias -Follow blood cultures-no growth to date -Continued stay to finish out course of Remdesivir (2) Acute respiratory failure with hypoxia: As above Continue supplemental O2 and wean off as able to (3) Acute metabolic encephalopathy: 2nd to COVID-19 and hypoxia as well as febrile illness. Now completely resolved (4) CLL (chronic lymphocytic leukemia): CBC relatively benign except smudge cells are seen. PCP records indicate he is not following with oncology. (5) Prostate cancer: Treated with surgery? xrt? No issues at this time. (6) Depression: Stable -Continue lexapro 5mg daily. His on 09/02 in the hospital and he was informed of this. Watch for worsening mood and provide support for grieving (7) Intellectual disability: Noted. Supportive care (8) DVT prophylaxis: Lovenox 30mg BID. Higher dose of chemical means due to COVID. Updated Zakiya Barraza, step-daughter, by phone Full code Expected least 3 more days of stay to complete Remdesivir course and to monitor for worsening of hypoxia He is ordinarily very independent Admission and Anticipated Discharge Date Admission Date: August 31, 2020 Subjective Patient feels well today. Denies shortness of breath. He has a little bit of nonproductive cough. No chest pain. No nausea or vomiting. He is tolerating p.o. He is ambulating to the bathroom without difficulty. Unfortunately, I had to inform him that his this morning in the hospital as she was also my patient and he was saddened by this news. We sat for a while and talked about his life and his and my condolences were given to him as well as my comfort. I discussed his care with his stepdaughter on the phone who is his healthcare power of estimator. Telemetry with normal sinus rhythm with rates in the 60s. Review of Systems Review of Systems: All systems reviewed & are unremarkable except as noted in HPI & below Physical Exam Constitutional: WD/WN, vitals as above Eyes: + anicteric sclerae Neck: trachea midline, no thyromegaly Respiratory: normal respiratory effort; no labored breathing and not tachypneic Auscultation: + crackles (Mild at the bases bilaterally); no rales, no rhonchi and no wheezes Cardiovascular: RRR, no murmur, no edema Chest (Breasts): Chest: normal inspection of chest Gastrointestinal (Abdomen): normal bowel sounds, soft, nontender, no hepatosplenomegaly Musculoskeletal: Extremities: extremities normal to inspection; no cyanosis and no clubbing Skin: no rashes, warm and dry Neurologic: moves all extremities and awake; no focal motor deficits Psychiatric: Orientation: alert, oriented to person, oriented to place and cooperative Eye Contact: good eye contact Affect: + flat affect Thought Process: goal directed thought process Cognition: recent memory grossly intact and remote memory grossly intact Lymphatic: no lymphedema Results & Data Results & Data ([facility]) Vital Signs (Past 12 Hours) Vital Signs Temp Pulse Pulse Resp BP BP Pulse Ox 09/02/20 20:52 36.8 C 52 L 16 130/63 95 09/02/20 17:37 64 09/02/20 17:01 36.7 C 59 L 16 125/64 95 09/02/20 10:58 37.0 C 64 18 126/67 96 Laboratory Results 09/02/20 09/02/20 09/02/20 Range/Units 06:52 06:52 06:52 WBC (4.8-10.8) K/uL RBC (4.7-6.1) M/uL Hgb (14.0-18.0) g/dL Hct (42-52) % MCV (80-100) fL MCH (25-34) pg MCHC (32-36) g/dL RDW Std Deviation (36.4-46.3) fL RDW Coeff of Geovany (11.5-14.5) % Plt Count (130-400) K/uL MPV (7.4-10.4) fL Immature Gran % (Auto) % Neut % (Auto) % Lymph % (Auto) % [place] % (Auto) % Eos % (Auto) % Baso % (Auto) % Neut # (Auto) (1.4-6.5) K/uL Lymph # (Auto) (1.2-3.4) K/uL [place] # (Auto) (0.11-0.59) K/uL Eos # (Auto) (0-0.5) K/uL Baso # (Auto) (0-0.2) K/uL Immature Gran # (Auto) (0.00-0.02) K/uL ESR (0-14) mm/hr D-Dimer 220 (0-500) ug/L FEU Sodium 141 (136-145) mmol/L Potassium 4.1 (3.5-5.1) mmol/L Chloride 108 H (98-107) mmol/L Carbon Dioxide 30 (21-32) mmol/L Anion Gap 3.0 (3-11) BUN 28 H (7-18) mg/dl Creatinine 0.84 (0.6-1.4) mg/dl Est Cr Clr Drug Dosing 55.1 ml/min Est GFR ( Amer) 91.2 Est GFR (Non-Af Amer) 78.7 BUN/Creatinine Ratio 33.2 H (10-20) Glucose 87 (70-99) mg/dl Calcium 8.3 L (8.5-10.1) mg/dl Ferritin 311.4 (8-388) ng/ml Total Bilirubin 0.3 (0.2-1) mg/dl AST 38 H (15-37) U/L ALT 41 (12-78) U/L Alkaline Phosphatase 76 (45-117) U/L Lactate Dehydrogenase 161 (87-241) U/L Total Creatine Kinase 33 L (39-308) U/L C-Reactive Protein 4.91 H (0-0.29) mg/dl Total Protein 6.2 L (6.4-8.2) gm/dl Albumin 2.8 L (3.4-5.0) gm/dl Globulin 3.4 (2.5-4.0) gm/dl Albumin/Globulin Ratio 0.8 L (0.9-2) Blood Type Antibody Screen 09/02/20 09/02/20 09/01/20 Range/Units 06:52 06:52 15:48 WBC 7.45 (4.8-10.8) K/uL RBC 3.74 L (4.7-6.1) M/uL Hgb 11.6 L (14.0-18.0) g/dL Hct 34.7 L (42-52) % MCV 92.8 (80-100) fL MCH 31.0 (25-34) pg MCHC 33.4 (32-36) g/dL RDW Std Deviation 49.2 H (36.4-46.3) fL RDW Coeff of Geovany 14.7 H (11.5-14.5) % Plt Count 231 (130-400) K/uL MPV 9.6 (7.4-10.4) fL Immature Gran % (Auto) 0.3 % Neut % (Auto) 64.3 % Lymph % (Auto) 30.2 % [place] % (Auto) 5.2 % Eos % (Auto) 0.0 % Baso % (Auto) 0.0 % Neut # (Auto) 4.79 (1.4-6.5) K/uL Lymph # (Auto) 2.25 (1.2-3.4) K/uL [place] # (Auto) 0.39 (0.11-0.59) K/uL Eos # (Auto) 0.00 (0-0.5) K/uL Baso # (Auto) 0.00 (0-0.2) K/uL Immature Gran # (Auto) 0.02 (0.00-0.02) K/uL ESR 38 H (0-14) mm/hr D-Dimer (0-500) ug/L FEU Sodium (136-145) mmol/L Potassium (3.5-5.1) mmol/L Chloride (98-107) mmol/L Carbon Dioxide (21-32) mmol/L Anion Gap (3-11) BUN (7-18) mg/dl Creatinine (0.6-1.4) mg/dl Est Cr Clr Drug Dosing ml/min Est GFR ( Amer) Est GFR (Non-Af Amer) BUN/Creatinine Ratio (10-20) Glucose (70-99) mg/dl Calcium (8.5-10.1) mg/dl Ferritin (8-388) ng/ml Total Bilirubin (0.2-1) mg/dl AST (15-37) U/L ALT (12-78) U/L Alkaline Phosphatase (45-117) U/L Lactate Dehydrogenase (87-241) U/L Total Creatine Kinase (39-308) U/L C-Reactive Protein (0-0.29) mg/dl Total Protein (6.4-8.2) gm/dl Albumin (3.4-5.0) gm/dl Globulin (2.5-4.0) gm/dl Albumin/Globulin Ratio (0.9-2) Blood Type A Negative Antibody Screen NEGATIVE PG Care Time/CCT Total # of Minutes Spent Total Time Spent with Patient: Total time spent is greater than 50% in coordina tion of care (as documented) at patient's floor/unit and/or counseling patient: Coding Level of Care Code 65560 Subseq Hosp Care Lvl 3 Diagnoses Pneumonia due to COVID-19 virus U07.1; J12.89 Acute respiratory failure with hypoxia J96.01 Acute metabolic encephalopathy G93.41 CLL (chronic lymphocytic leukemia) C91.10 Prostate cancer C61 Depression F32.9 Depression Type: unspecified Intellectual disability F79 DVT prophylaxis Z29.9 (1) Depression Depression Type: unspecified Qualified Code(s): F32.9 - Major depressive disorder, single episode, unspecified
[2020-09-03 08:02] LABS: Basophils # (auto) 0.01 K/uL (0-0.2); Basophils % (auto) 0.1 %; Eosinophils # (auto) 0.01 K/uL (0-0.5); Eosinophils % (auto) 0.1 %; Hematocrit (blood only) 33.8 % (42-52); Hemoglobin 11.2 g/dL (14.0-18.0); Immature Granulocytes # (auto) 0.01 K/uL (0.00-0.02); Immature Granulocytes % (auto) 0.1 %; Lymphocytes # (auto) 2.53 K/uL (1.2-3.4); Lymphocytes % (auto) 36.2 %; Mean Corpuscular Hemoglobin 30.7 pg (25-34); Mean Corpuscular Hgb Conc 33.1 g/dL (32-36); Mean Corpuscular Volume 92.6 fL (80-100); Mean Platelet Volume 9.2 fL (7.4-10.4); Monocytes # (auto) 0.49 K/uL (0.11-0.59); Neutrophils # (auto) 3.94 K/uL (1.4-6.5); Neutrophils % (auto) 56.5 %; Platelet Count 243 K/uL (130-400); RDW Coefficient of Variation 14.6 % (11.5-14.5); RDW Standard Deviation 48.8 fL (36.4-46.3); Red Blood Count 3.65 M/uL (4.7-6.1); White Blood Count 6.99 K/uL (4.8-10.8)
[2020-09-03] MEDS: dexAMETHasone 4 MG TAB PO SCH (08:10)
[2020-09-03] MEDS: PANTOprazole 40 MG TAB PO SCH (08:10)
[2020-09-03] MEDS: ASPIRIN 81 MG ECTAB PO SCH (08:11)
[2020-09-03] MEDS: CEROVITE ADV FORMULA TAB PO SCH (08:11)
[2020-09-03 08:12] LABS: D Dimer 210 ug/L FEU (0-500)
[2020-09-03] MEDS: ENOXAPARIN INJ 30 MG/0.3 ML SYR SQ SCH ×2 (08:12→22:01)
[2020-09-03] MEDS: ESCITALOPRAM OXALATE 10 MG TAB PO SCH (08:12)
[2020-09-03 08:27] LABS: Albumin Level 2.7 gm/dl (3.4-5.0); BUN Creatinine Ratio 28.4 (10-20); C Reactive Protein 3.32 mg/dl (0-0.29); Calcium 8.5 mg/dl (8.5-10.1); Creatinine Clr Calc Pharmacy 60.5 ml/min; Est GFR (African American) 96.1; Est GFR (Non-African American) 82.9; Potassium 3.9 mmol/L (3.5-5.1)
[2020-09-03] MEDS: ACETAMINOPHEN 325 MG TAB PO PRN (08:27)
[2020-09-03 08:31] LABS: Albumin Globulin Ratio 0.8 (0.9-2); Bilirubin,Total 0.3 mg/dl (0.2-1); Ferritin 290.5 ng/ml (8-388); Globulin 3.4 gm/dl (2.5-4.0); Total Protein 6.1 gm/dl (6.4-8.2)
[2020-09-03] MEDS: REMDESIVIR 100mg: Days 2-5 IV SCH (09:14)
[2020-09-03] MEDS: NSS 30mL Flush, Days 1-5 IV SCH (11:23)
--- NOTE | 2020-09-03 16:28 | Hospitalist Progress Note ---
Date of Service September 03, 2020 Assessment & Plan (1) Pneumonia due to COVID-19 virus: With hypoxia of 88% on room air upon admission. Continues to be requiring 2 L nasal cannula with pulse ox improving to 95% Otherwise doing fairly well and no significant symptoms. He did have a fever up on arrival but none since. Chest x-ray does show bilateral pulmonary interstitial opacities and he has some crackles on examination Flu is negative He is tolerating p.o. and remains afebrile, markers of inflammation seem to be improving -Continue 10-day course of decadron 6mg p.o. daily. Last dose will be on 09/09. -Continue Protonix for GI protection while on dexamethasone -He received 1 unit of convalescent plasma -Continue Remdesivir x5-day course-started on 09/01 Continue supportive care, airborne isolation, etc. -Follow CBC, CMP, CRP, ESR, ferritin, LDH, d-dimer- He is still fairly early in the course of illness at this time but doing very well Tylenol as needed for fevers or myalgias -Follow blood cultures-no growth to date -Continued stay to finish out course of Remdesivir (2) Acute respiratory failure with hypoxia: As above Continue supplemental O2 and wean off as able to (3) Acute metabolic encephalopathy: 2nd to COVID-19 and hypoxia as well as febrile illness. Now completely resolved (4) CLL (chronic lymphocytic leukemia): CBC relatively benign except smudge cells are seen. PCP records indicate he is not following with oncology. (5) Prostate cancer: Treated with surgery? xrt? No issues at this time. (6) Depression: Stable -Continue lexapro 5mg daily. His on 09/02 in the hospital and he was informed of this. Watch for worsening mood and provide support for grieving (7) Intellectual disability: Noted. Supportive care (8) DVT prophylaxis: Lovenox 30mg BID. Higher dose of chemical means due to COVID. Full code Expected least 2 more days of stay to complete Remdesivir course and to monitor for worsening of hypoxia He is ordinarily very independent We will have PT/OT work with him prior to discharge Stable to transfer off telemetry to medical/surgical level of care Admission and Anticipated Discharge Date Admission Date: August 31, 2020 Subjective Patient feeling okay, states he feels a little short of breath and has some cough. Denies chest pain. Denies nausea or vomiting. He is eating. His mood is sad after his yesterday but he reports he is doing "okay." Telemetry with sinus bradycardia and PVCs Review of Systems Review of Systems: All systems reviewed & are unremarkable except as noted in HPI & below Physical Exam Constitutional: WD/WN, vitals as above Eyes: + anicteric sclerae Neck: trachea midline, no thyromegaly Respiratory: normal respiratory effort; no labored breathing and not tachypneic Auscultation: + crackles (Mild at the bases bilaterally); no rales, no rhonchi and no wheezes Cardiovascular: RRR, no murmur, no edema Chest (Breasts): Chest: normal inspection of chest Gastrointestinal (Abdomen): normal bowel sounds, soft, nontender, no hepatosplenomegaly Musculoskeletal: Extremities: extremities normal to inspection; no cyanosis and no clubbing Skin: no rashes, warm and dry Neurologic: moves all extremities and awake; no focal motor deficits Psychiatric: Orientation: alert, oriented to person, oriented to place and cooperative Eye Contact: good eye contact Affect: + flat affect Thought Process: goal directed thought process Cognition: recent memory grossly intact and remote memory grossly intact Lymphatic: no lymphedema Results & Data Results & Data ([facility]) Vital Signs (Past 12 Hours) Vital Signs Temp Pulse Pulse Resp BP Pulse Ox 09/03/20 15:49 49 L 09/03/20 15:42 36.5 C 53 L 19 156/78 H 96 09/03/20 12:07 37.0 C 53 L 19 132/57 L 92 09/03/20 08:25 36.9 C 59 L 18 142/66 H 91 09/03/20 08:00 49 L Laboratory Results 09/03/20 09/03/20 09/03/20 Range/Units 07:30 07:30 07:30 WBC (4.8-10.8) K/uL RBC (4.7-6.1) M/uL Hgb (14.0-18.0) g/dL Hct (42-52) % MCV (80-100) fL MCH (25-34) pg MCHC (32-36) g/dL RDW Std Deviation (36.4-46.3) fL RDW Coeff of Geovany (11.5-14.5) % Plt Count (130-400) K/uL MPV (7.4-10.4) fL Immature Gran % (Auto) % Neut % (Auto) % Lymph % (Auto) % [place] % (Auto) % Eos % (Auto) % Baso % (Auto) % Neut # (Auto) (1.4-6.5) K/uL Lymph # (Auto) (1.2-3.4) K/uL [place] # (Auto) (0.11-0.59) K/uL Eos # (Auto) (0-0.5) K/uL Baso # (Auto) (0-0.2) K/uL Immature Gran # (Auto) (0.00-0.02) K/uL ESR (0-14) mm/hr D-Dimer 210 (0-500) ug/L FEU Sodium 139 (136-145) mmol/L Potassium 3.9 (3.5-5.1) mmol/L Chloride 105 (98-107) mmol/L Carbon Dioxide 30 (21-32) mmol/L Anion Gap 4.0 (3-11) BUN 21 H (7-18) mg/dl Creatinine 0.74 (0.6-1.4) mg/dl Est Cr Clr Drug Dosing 60.5 ml/min Est GFR ( Amer) 96.1 Est GFR (Non-Af Amer) 82.9 BUN/Creatinine Ratio 28.4 H (10-20) Glucose 82 (70-99) mg/dl Calcium 8.5 (8.5-10.1) mg/dl Ferritin 290.5 (8-388) ng/ml Total Bilirubin 0.3 (0.2-1) mg/dl AST 28 (15-37) U/L ALT 38 (12-78) U/L Alkaline Phosphatase 69 (45-117) U/L Lactate Dehydrogenase 232 (87-241) U/L C-Reactive Protein 3.32 H (0-0.29) mg/dl Total Protein 6.1 L (6.4-8.2) gm/dl Albumin 2.7 L (3.4-5.0) gm/dl Globulin 3.4 (2.5-4.0) gm/dl Albumin/Globulin Ratio 0.8 L (0.9-2) 09/03/20 09/03/20 Range/Units 07:30 07:30 WBC 6.99 (4.8-10.8) K/uL RBC 3.65 L (4.7-6.1) M/uL Hgb 11.2 L (14.0-18.0) g/dL Hct 33.8 L (42-52) % MCV 92.6 (80-100) fL MCH 30.7 (25-34) pg MCHC 33.1 (32-36) g/dL RDW Std Deviation 48.8 H (36.4-46.3) fL RDW Coeff of Geovany 14.6 H (11.5-14.5) % Plt Count 243 (130-400) K/uL MPV 9.2 (7.4-10.4) fL Immature Gran % (Auto) 0.1 % Neut % (Auto) 56.5 % Lymph % (Auto) 36.2 % [place] % (Auto) 7.0 % Eos % (Auto) 0.1 % Baso % (Auto) 0.1 % Neut # (Auto) 3.94 (1.4-6.5) K/uL Lymph # (Auto) 2.53 (1.2-3.4) K/uL [place] # (Auto) 0.49 (0.11-0.59) K/uL Eos # (Auto) 0.01 (0-0.5) K/uL Baso # (Auto) 0.01 (0-0.2) K/uL Immature Gran # (Auto) 0.01 (0.00-0.02) K/uL ESR 19 H (0-14) mm/hr D-Dimer (0-500) ug/L FEU Sodium (136-145) mmol/L Potassium (3.5-5.1) mmol/L Chloride (98-107) mmol/L Carbon Dioxide (21-32) mmol/L Anion Gap (3-11) BUN (7-18) mg/dl Creatinine (0.6-1.4) mg/dl Est Cr Clr Drug Dosing ml/min Est GFR ( Amer) Est GFR (Non-Af Amer) BUN/Creatinine Ratio (10-20) Glucose (70-99) mg/dl Calcium (8.5-10.1) mg/dl Ferritin (8-388) ng/ml Total Bilirubin (0.2-1) mg/dl AST (15-37) U/L ALT (12-78) U/L Alkaline Phosphatase (45-117) U/L Lactate Dehydrogenase (87-241) U/L C-Reactive Protein (0-0.29) mg/dl Total Protein (6.4-8.2) gm/dl Albumin (3.4-5.0) gm/dl Globulin (2.5-4.0) gm/dl Albumin/Globulin Ratio (0.9-2) PG Care Time/CCT Total # of Minutes Spent Total Time Spent with Patient: Total time spent is greater than 50% in coordination of care (as documented) at patient's floor/unit and/or counseling patient: Coding Level of Care Code 70136 Subseq Hosp Care Lvl 2 Diagnoses Pneumonia due to COVID-19 virus U07.1; J12.89 Acute respiratory failure with hypoxia J96.01 Acute metabolic encephalopathy G93.41 CLL (chronic lymphocytic leukemia) C91.10 Prostate cancer C61 Depression F32.9 Depression Type: unspecified Intellectual disability F79 DVT prophylaxis Z29.9 (1) Depression Depression Type: unspecified Qualified Code(s): F32.9 - Major depressive disorder, single episode, unspecified
[2020-09-04 06:46] LABS: Hematocrit (blood only) 34.7 % (42-52); Hemoglobin 11.7 g/dL (14.0-18.0); Mean Corpuscular Hgb Conc 33.7 g/dL (32-36); Mean Platelet Volume 9.3 fL (7.4-10.4); Platelet Count 279 K/uL (130-400); RDW Coefficient of Variation 14.5 % (11.5-14.5); RDW Standard Deviation 47.9 fL (36.4-46.3); Red Blood Count 3.77 M/uL (4.7-6.1); White Blood Count 4.69 K/uL (4.8-10.8)
[2020-09-04 06:57] LABS: D Dimer 190 ug/L FEU (0-500)
[2020-09-04 07:06] LABS: Albumin Level 2.8 gm/dl (3.4-5.0); BUN Creatinine Ratio 29.3 (10-20); C Reactive Protein 2.86 mg/dl (0-0.29); Calcium 8.8 mg/dl (8.5-10.1); Creatinine Clr Calc Pharmacy 61.3 ml/min; Est GFR (African American) 96.7; Est GFR (Non-African American) 83.4; Potassium 4.2 mmol/L (3.5-5.1)
[2020-09-04 07:11] LABS: Albumin Globulin Ratio 0.8 (0.9-2); Bilirubin,Total 0.3 mg/dl (0.2-1); Ferritin 297.4 ng/ml (8-388); Globulin 3.5 gm/dl (2.5-4.0); Total Protein 6.3 gm/dl (6.4-8.2)
[2020-09-04 07:54] LABS: Echinocytes 1+; Immature Granulocytes # (auto) 0.01 K/uL (0.00-0.02); Immature Granulocytes % (auto) 0.2 %; Lymphocytes # (auto) 2.54 K/uL (1.2-3.4); Lymphocytes % (auto) 54.2 %; Monocytes # (auto) 0.45 K/uL (0.11-0.59); Monocytes % (auto) 9.6 %; Neutrophils # (auto) 1.69 K/uL (1.4-6.5)
[2020-09-04] MEDS: ESCITALOPRAM OXALATE 10 MG TAB PO SCH (08:13)
[2020-09-04] MEDS: PANTOprazole 40 MG TAB PO SCH (08:13)
[2020-09-04] MEDS: ASPIRIN 81 MG ECTAB PO SCH (08:13)
[2020-09-04] MEDS: CEROVITE ADV FORMULA TAB PO SCH (08:13)
[2020-09-04] MEDS: dexAMETHasone 4 MG TAB PO SCH (08:14)
[2020-09-04] MEDS: ENOXAPARIN INJ 30 MG/0.3 ML SYR SQ SCH ×2 (08:14→20:27)
[2020-09-04] MEDS: NSS 30mL Flush, Days 1-5 IV SCH (09:27)
[2020-09-04] MEDS: REMDESIVIR 100mg: Days 2-5 IV SCH (09:27)
--- NOTE | 2020-09-04 18:06 | Hospitalist Progress Note ---
Date of Service September 04, 2020 Assessment & Plan (1) Pneumonia due to COVID-19 virus: With hypoxia of 88% on room air upon admission. Continues to be requiring 2 L nasal cannula with pulse ox ranging 91-96% Otherwise doing fairly well and no significant symptoms. He did have a fever upon arrival but none since. Chest x-ray on admission does show bilateral pulmonary interstitial opacities and he has some crackles on examination Flu was negative He is tolerating p.o. and remains afebrile, markers of inflammation seem to be improving He is ambulating. He is getting anxious for discharge to home -Continue 10-day course of decadron 6mg p.o. daily. Last dose will be on 09/09. -Continue Protonix for GI protection while on dexamethasone -He received 1 unit of convalescent plasma -Continue Remdesivir x5-day course-started on 09/01 and last dose will be on 07/06 Continue supportive care, airborne isolation, etc. -Follow CBC, CMP, CRP, ESR, ferritin, LDH, d-dimer- -Follow blood cultures-no growth to date -Continued stay to finish out course of Remdesivir, however then he is wanting to go home hopefully on Saturday. He will need oxygen to go home with. He does live alone as his while he was here in the hospital and his stepdaughter has concerns that he cannot follow directions very well and they will not be able to help him as he is positive for COVID. We will discussed with the daughter about possible discharge on Saturday or Saturday (2) Acute respiratory failure with hypoxia: As above Continue supplemental O2 and wean off as able to It seems he will likely need oxygen to go home with Will need a two-step on the day of discharge (3) Acute metabolic encephalopathy: 2nd to COVID-19 and hypoxia as well as febrile illness. Now completely resolved (4) CLL (chronic lymphocytic leukemia): CBC relatively benign except smudge cells are seen. PCP records indicate he is not following with oncology. (5) Prostate cancer: Treated with radiation therapy as per patient No issues at this time. (6) Depression: Stable -Continue lexapro 5mg daily. His on 09/02 in the hospital and he was informed of this. Watch for worsening mood and provide support for grieving (7) Intellectual disability: Noted. Supportive care (8) DVT prophylaxis: Lovenox 30mg BID. Higher dose of chemical means due to COVID. Full code Disposition he is ordinarily very independent. Will have PT/OT work with him prior to discharge. He is hopeful for discharge to home on 09/05, but again will discuss with family as above Continued care medical/surgical level of care Admission and Anticipated Discharge Date Admission Date: August 31, 2020 Anticipated date of discharge: 09/05/20 Subjective Patient reports he is feeling "down" today. He says he is ready to go home but understands he is here to finish out his treatment. Denies any shortness of breath. Still has a mild cough. No chest pain. No nausea or abdominal pain. He is moving his bowels and making urine. He is ambulating independently. He remains on oxygen 2 L nasal cannula. Review of Systems Review of Systems: All systems reviewed & are unremarkable except as noted in HPI & below Physical Exam Constitutional: WD/WN, vitals as above Eyes: + anicteric sclerae Neck: trachea midline, no thyromegaly Respiratory: normal respiratory effort; no labored breathing and not tachypneic Auscultation: + crackles (Mild at the bases bilaterally); no rales, no rhonchi and no wheezes Cardiovascular: Rate/Rhythm: regular rate and + bradycardic Heart Sounds: no murmur Extremities: no edema Chest (Breasts): Chest: normal inspection of chest Gastrointestinal (Abdomen): normal bowel sounds, soft, nontender, no hepatosplenomegaly Musculoskeletal: Extremities: extremities normal to inspection; no cyanosis and no clubbing Skin: no rashes, warm and dry Neurologic: moves all extremities and awake; no focal motor deficits Psychiatric: Orientation: alert, oriented to person, oriented to place and cooperative Eye Contact: good eye contact Affect: + depressed affect Thought Process: goal directed thought process Cognition: recent memory grossly intact and remote memory grossly intact Lymphatic: no lymphedema Results & Data Results & Data ([facility]) Vital Signs (Past 12 Hours) Vital Signs Temp Pulse Resp BP Pulse Ox 09/04/20 16:25 36.6 C 51 L 20 107/52 L 92 09/04/20 08:27 36.5 C 53 L 19 140/78 95 Laboratory Results 09/04/20 09/04/20 09/04/20 Range/Units Unknown Unknown Unknown WBC (4.8-10.8) K/uL RBC (4.7-6.1) M/uL Hgb (14.0-18.0) g/dL Hct (42-52) % MCV (80-100) fL MCH (25-34) pg MCHC (32-36) g/dL RDW Std Deviation (36.4-46.3) fL RDW Coeff of Geovany (11.5-14.5) % Plt Count (130-400) K/uL MPV (7.4-10.4) fL Immature Gran % (Auto) % Neut % (Auto) % Lymph % (Auto) % Platte % (Auto) % Eos % (Auto) % Baso % (Auto) % Neut # (Auto) (1.4-6.5) K/uL Lymph # (Auto) (1.2-3.4) K/uL Platte # (Auto) (0.11-0.59) K/uL Eos # (Auto) (0-0.5) K/uL Baso # (Auto) (0-0.2) K/uL Immature Gran # (Auto) (0.00-0.02) K/uL Echinocytes ESR 24 H (0-14) mm/hr D-Dimer 190 (0-500) ug/L FEU Sodium (136-145) mmol/L Potassium (3.5-5.1) mmol/L Chloride (98-107) mmol/L Carbon Dioxide (21-32) mmol/L Anion Gap (3-11) BUN (7-18) mg/dl Creatinine (0.6-1.4) mg/dl Est Cr Clr Drug Dosing ml/min Est GFR ( Amer) Est GFR (Non-Af Amer) BUN/Creatinine Ratio (10-20) Glucose (70-99) mg/dl Calcium (8.5-10.1) mg/dl Ferritin (8-388) ng/ml Total Bilirubin (0.2-1) mg/dl AST (15-37) U/L ALT (12-78) U/L Alkaline Phosphatase (45-117) U/L Lactate Dehydrogenase 160 (87-241) U/L C-Reactive Protein (0-0.29) mg/dl Total Protein (6.4-8.2) gm/dl Albumin (3.4-5.0) gm/dl Globulin (2.5-4.0) gm/dl Albumin/Globulin Ratio (0.9-2) 09/04/20 09/04/20 Range/Units Unknown Unknown WBC 4.69 L (4.8-10.8) K/uL RBC 3.77 L (4.7-6.1) M/uL Hgb 11.7 L (14.0-18.0) g/dL Hct 34.7 L (42-52) % MCV 92.0 (80-100) fL MCH 31.0 (25-34) pg MCHC 33.7 (32-36) g/dL RDW Std Deviation 47.9 H (36.4-46.3) fL RDW Coeff of Geovany 14.5 (11.5-14.5) % Plt Count 279 (130-400) K/uL MPV 9.3 (7.4-10.4) fL Immature Gran % (Auto) 0.2 % Neut % (Auto) 36.0 % Lymph % (Auto) 54.2 % Platte % (Auto) 9.6 % Eos % (Auto) 0.0 % Baso % (Auto) 0.0 % Neut # (Auto) 1.69 (1.4-6.5) K/uL Lymph # (Auto) 2.54 (1.2-3.4) K/uL Platte # (Auto) 0.45 (0.11-0.59) K/uL Eos # (Auto) 0.00 (0-0.5) K/uL Baso # (Auto) 0.00 (0-0.2) K/uL Immature Gran # (Auto) 0.01 (0.00-0.02) K/uL Echinocytes 1+ ESR (0-14) mm/hr D-Dimer (0-500) ug/L FEU Sodium 140 (136-145) mmol/L Potassium 4.2 (3.5-5.1) mmol/L Chloride 107 (98-107) mmol/L Carbon Dioxide 30 (21-32) mmol/L Anion Gap 2.0 L (3-11) BUN 22 H (7-18) mg/dl Creatinine 0.73 (0.6-1.4) mg/dl Est Cr Clr Drug Dosing 61.3 ml/min Est GFR ( Amer) 96.7 Est GFR (Non-Af Amer) 83.4 BUN/Creatinine Ratio 29.3 H (10-20) Glucose 85 (70-99) mg/dl Calcium 8.8 (8.5-10.1) mg/dl Ferritin 297.4 (8-388) ng/ml Total Bilirubin 0.3 (0.2-1) mg/dl AST 26 (15-37) U/L ALT 41 (12-78) U/L Alkaline Phosphatase 70 (45-117) U/L Lactate Dehydrogenase (87-241) U/L C-Reactive Protein 2.86 H (0-0.29) mg/dl Total Protein 6.3 L (6.4-8.2) gm/dl Albumin 2.8 L (3.4-5.0) gm/dl Globulin 3.5 (2.5-4.0) gm/dl Albumin/Globulin Ratio 0.8 L (0.9-2) PG Care Time/CCT Total # of Minutes Spent Total Time Spent with Patient: Total time spent is greater than 50% in coordination of care (as documented) at patient's floor/unit and/or counseling patient: Coding Level of Care Code 97478 Subseq Hosp Care Lvl 2 Diagnoses Pneumonia due to COVID-19 virus U07.1; J12.89 Acute respiratory failure with hypoxia J96.01 Acute metabolic encephalopathy G93.41 CLL (chronic lymphocytic leukemia) C91.10 Prostate cancer C61 Depression F32.9 Depression Type: unspecified Intellectual disability F79 DVT prophylaxis Z29.9 (1) Depression Depression Type: unspecified Qualified Code(s): F32.9 - Major depressive disorder, single episode, unspecified
[2020-09-05 06:47] LABS: Basophils # (auto) 0.01 K/uL (0-0.2); Basophils % (auto) 0.1 %; Eosinophils # (auto) 0.01 K/uL (0-0.5); Eosinophils % (auto) 0.1 %; Hematocrit (blood only) 35.5 % (42-52); Hemoglobin 11.8 g/dL (14.0-18.0); Immature Granulocytes # (auto) 0.03 K/uL (0.00-0.02); Immature Granulocytes % (auto) 0.4 %; Lymphocytes # (auto) 3.44 K/uL (1.2-3.4); Lymphocytes % (auto) 48.8 %; Mean Corpuscular Hemoglobin 30.5 pg (25-34); Mean Corpuscular Hgb Conc 33.2 g/dL (32-36); Mean Corpuscular Volume 91.7 fL (80-100); Mean Platelet Volume 9.5 fL (7.4-10.4); Monocytes # (auto) 0.48 K/uL (0.11-0.59); Monocytes % (auto) 6.8 %; Neutrophils # (auto) 3.08 K/uL (1.4-6.5); Neutrophils % (auto) 43.8 %; Platelet Count 313 K/uL (130-400); RDW Coefficient of Variation 14.6 % (11.5-14.5); Red Blood Count 3.87 M/uL (4.7-6.1); White Blood Count 7.05 K/uL (4.8-10.8)
[2020-09-05 07:00] LABS: D Dimer < 190 ug/L FEU (0-500)
[2020-09-05 07:27] LABS: Albumin Level 2.8 gm/dl (3.4-5.0); BUN Creatinine Ratio 38.6 (10-20); Calcium 8.5 mg/dl (8.5-10.1); Creatinine Clr Calc Pharmacy 65.8 ml/min; Est GFR (African American) 99.5; Est GFR (Non-African American) 85.9; Potassium 4.2 mmol/L (3.5-5.1)
[2020-09-05 07:31] LABS: Albumin Globulin Ratio 0.8 (0.9-2); Bilirubin,Total 0.3 mg/dl (0.2-1); C Reactive Protein 1.66 mg/dl (0-0.29); Globulin 3.5 gm/dl (2.5-4.0); Total Protein 6.3 gm/dl (6.4-8.2)
[2020-09-05] MEDS: CEROVITE ADV FORMULA TAB PO SCH (08:31)
[2020-09-05] MEDS: PANTOprazole 40 MG TAB PO SCH (08:31)
[2020-09-05] MEDS: ASPIRIN 81 MG ECTAB PO SCH (08:31)
[2020-09-05] MEDS: dexAMETHasone 4 MG TAB PO SCH (08:32)
[2020-09-05] MEDS: ENOXAPARIN INJ 30 MG/0.3 ML SYR SQ SCH ×2 (08:32→20:15)
[2020-09-05] MEDS: ESCITALOPRAM OXALATE 10 MG TAB PO SCH (08:32)
[2020-09-05] MEDS: REMDESIVIR 100mg: Days 2-5 IV SCH (10:10)
[2020-09-05] MEDS: NSS 30mL Flush, Days 1-5 IV SCH (10:10)
--- NOTE | 2020-09-05 14:50 | Hospitalist Progress Note ---
Date of Service September 05, 2020 Assessment & Plan (1) Pneumonia due to COVID-19 virus: Date of diagnosis - 08/31/2020 (at time of admission). Symptoms began ~08/30/2020. s/p 5-day course of remdesivir - today is day #5. s/p 1 unit of convalescent plasma. Currently on day #6 of 10 of decadron 6mg daily. Patient MUCH improved with O2 weaned off today and minimal symptoms. Anticipate d/c home tomorrow. Will need 2-step to ensure he does not need O2 with ambulation. (2) Acute metabolic encephalopathy: 2nd to COVID-19. Resolved. Mental status much improved relative to my admission assessment. (3) Acute respiratory failure with hypoxia: 2nd to COVID-19 infection - resolved. (4) CLL (chronic lymphocytic leukemia): CBC is stable. Has not been following with oncology. (5) Prostate cancer: s/p XRT for such. No issues at this time. (6) Depression: Continue lexapro 5mg daily. (7) Intellectual disability: Noted. Still drives. Will be living alone at home as 89-yo from COVID just a few days ago. Would benefit from home health at discharge. (8) DVT prophylaxis: Lovenox 30mg BID. Higher dose of chemical means due to COVID. Updated Zakiya Barraza, step-daughter, by phone extensively today. Likely d/c tomorrow - Zakiya is aware. Admission and Anticipated Discharge Date Admission Date: August 31, 2020 Anticipated date of discharge: 09/06/20 Subjective during the visit I turned the pt's O2 off. it remained off for about 5-6 minutes. O2 sats remained about 95% in RA. O2 left off - nursing staff informed. patient without any complaints during the visit. feeling good. normal appetite. denies dyspnea. minimal cough. no nausea, emesis, abd pain. Review of Systems Constitutional: no fever, no chills, no fatigue and no anorexia Respiratory: no chest congestion, no sputum production and no wheezing Cardiovascular: no chest pain Gastrointestinal: no abdominal pain Physical Exam Constitutional: well developed and well nourished; no acute distress, not ill appearing and no altered mental status ENMT: external ear and nose normal, oropharynx normal Respiratory: no respiratory distress Auscultation: + crackles (mild - right base only ); no wheezes Cardiovascular: Rate/Rhythm: regular rate and regular rhythm Heart Sounds: normal S1, normal S2 and + murmur (1/6 ZAHIDA LLSB) Vessels: posterior tibial pulses present and dorsalis pedis pulses present; no JVD Extremities: no edema Gastrointestinal (Abdomen): normal bowel sounds, soft, nontender, no hepatosplenomegaly Psychiatric: Orientation: alert, oriented to person and oriented to place Results & Data Results & Data ([facility]) Vital Signs (Past 12 Hours) Vital Signs Temp Pulse Resp BP Pulse Ox 09/05/20 14:10 95 09/05/20 12:55 96 09/05/20 11:48 36.7 C 62 17 145/64 H 94 09/05/20 08:05 36.7 C 51 L 18 148/72 H 93 Laboratory Results Laboratory Results - last 24 hr 09/05/20 09/05/20 09/05/20 05:19 05:49 05:49 WBC 7.05 RBC 3.87 L Hgb 11.8 L Hct 35.5 L MCV 91.7 MCH 30.5 MCHC 33.2 RDW Std Deviation 48.0 H RDW Coeff of Geovany 14.6 H Plt Count 313 MPV 9.5 Immature Gran % (Auto) 0.4 Neut % (Auto) 43.8 Lymph % (Auto) 48.8 Stephens % (Auto) 6.8 Eos % (Auto) 0.1 Baso % (Auto) 0.1 Neut # (Auto) 3.08 Lymph # (Auto) 3.44 H Stephens # (Auto) 0.48 Eos # (Auto) 0.01 Baso # (Auto) 0.01 Immature Gran # (Auto) 0.03 H ESR 16 H D-Dimer < 190 Sodium Potassium Chloride Carbon Dioxide Anion Gap BUN Creatinine Est Cr Clr Drug Dosing Est GFR ( Amer) Est GFR (Non-Af Amer) BUN/Creatinine Ratio Glucose Calcium Ferritin Total Bilirubin AST ALT Alkaline Phosphatase Lactate Dehydrogenase C-Reactive Protein Total Protein Albumin Globulin Albumin/Globulin Ratio 09/05/20 09/05/20 05:49 05:49 WBC RBC Hgb Hct MCV MCH MCHC RDW Std Deviation RDW Coeff of Geovany Plt Count MPV Immature Gran % (Auto) Neut % (Auto) Lymph % (Auto) Stephens % (Auto) Eos % (Auto) Baso % (Auto) Neut # (Auto) Lymph # (Auto) Stephens # (Auto) Eos # (Auto) Baso # (Auto) Immature Gran # (Auto) ESR D-Dimer Sodium 141 Potassium 4.2 Chloride 108 H Carbon Dioxide 31 Anion Gap 2.0 L BUN 26 H Creatinine 0.68 Est Cr Clr Drug Dosing 65.8 Est GFR ( Amer) 99.5 Est GFR (Non-Af Amer) 85.9 BUN/Creatinine Ratio 38.6 H Glucose 84 Calcium 8.5 Ferritin 419.0 H Total Bilirubin 0.3 AST 42 H ALT 55 Alkaline Phosphatase 71 Lactate Dehydrogenase 156 C-Reactive Protein 1.66 H Total Protein 6.3 L Albumin 2.8 L Globulin 3.5 Albumin/Globulin Ratio 0.8 L PG Care Time/CCT Total # of Minutes Spent Total Time Spent with Patient: Total time spent is greater than 50% in coordination of care (as documented) at patient's floor/unit and/or counseling patient: Coding Level of Care Code 29359 Subseq Hosp Care Lvl 2 Diagnoses Pneumonia due to COVID-19 virus U07.1; J12.89 Acute metabolic encephalopathy G93.41 Acute respiratory failure with hypoxia J96.01 CLL (chronic lymphocytic leukemia) C91.10 Prostate cancer C61 Depression F32.9 Depression Type: unspecified Intellectual disability F79 DVT prophylaxis Z29.9 (1) Depression Depression Type: unspecified Qualified Code(s): F32.9 - Major depressive disorder, single episode, unspecified
[2020-09-06 06:44] LABS: Basophils # (auto) 0.01 K/uL (0-0.2); Basophils % (auto) 0.1 %; Eosinophils # (auto) 0.05 K/uL (0-0.5); Eosinophils % (auto) 0.6 %; Hematocrit (blood only) 35.7 % (42-52); Hemoglobin 11.9 g/dL (14.0-18.0); Immature Granulocytes # (auto) 0.07 K/uL (0.00-0.02); Immature Granulocytes % (auto) 0.8 %; Lymphocytes # (auto) 3.92 K/uL (1.2-3.4); Lymphocytes % (auto) 43.4 %; Mean Corpuscular Hemoglobin 30.6 pg (25-34); Mean Corpuscular Hgb Conc 33.3 g/dL (32-36); Mean Corpuscular Volume 91.8 fL (80-100); Mean Platelet Volume 9.6 fL (7.4-10.4); Monocytes # (auto) 0.57 K/uL (0.11-0.59); Monocytes % (auto) 6.3 %; Neutrophils # (auto) 4.42 K/uL (1.4-6.5); Neutrophils % (auto) 48.8 %; Platelet Count 358 K/uL (130-400); RDW Coefficient of Variation 14.7 % (11.5-14.5); RDW Standard Deviation 48.4 fL (36.4-46.3); Red Blood Count 3.89 M/uL (4.7-6.1); White Blood Count 9.04 K/uL (4.8-10.8)
[2020-09-06 07:11] LABS: BUN Creatinine Ratio 34.1 (10-20); Calcium 8.5 mg/dl (8.5-10.1); Est GFR (African American) 97.8; Est GFR (Non-African American) 84.4; Potassium 4.1 mmol/L (3.5-5.1)
[2020-09-06] MEDS: ENOXAPARIN INJ 30 MG/0.3 ML SYR SQ SCH (07:41)
[2020-09-06] MEDS: CEROVITE ADV FORMULA TAB PO SCH (07:42)
[2020-09-06] MEDS: ASPIRIN 81 MG ECTAB PO SCH (07:42)
[2020-09-06] MEDS: dexAMETHasone 4 MG TAB PO SCH (07:42)
[2020-09-06] MEDS: PANTOprazole 40 MG TAB PO SCH (07:43)
[2020-09-06] MEDS: ESCITALOPRAM OXALATE 10 MG TAB PO SCH (07:43)
--- NOTE | 2020-09-06 15:05 | Discharge Summary ---
Date of Service date of admission - August 31, 2020 date of discharge - September 06, 2020 Admission HPI Per Admitting Provider 85yo male with h/o CLL per records, prostate cancer (treated with XRT??), and depression who presents from home via EMS due to cough, mild shortness of breath, and sore throat. He was unclear during the history if he had fever at home. He did have chills, however. was diagnosed with COVID-19 several days ago and is currently hospitalized. He is uncertain where the two of them contracted the virus. Cough is nonproductive. Denies headache, loss of taste/smell, runny nose, nausea, vomiting, or abdominal pain. Denies myalgias. Patient had difficulty telling me when his symptoms began but it sounds like he fell ill earlier today. In the ER [facility] patient's rapid COVID-19 test was positive. He was given decadron 6mg IV x 1. During my assessment the patient appeared to have significant hearing impairment. He also was confused, telling me that the year was 1919. He did not know the day of the week. He reports that he continues to drive a motor vehicle. Only drives to the grocery store, however. Principal Diagnosis COVID-19 pneumonia Discharge Exam Constitutional + thin; no acute distress, not ill appearing and no altered mental status ENMT external ear and nose normal, oropharynx normal Respiratory no respiratory distress Auscultation: + crackles (mild - right base only ); no wheezes Cardiovascular Rate/Rhythm: regular rate and regular rhythm Heart Sounds: normal S1, normal S2 and + murmur (1/6 ZAHIDA LLSB) Vessels: posterior tibial pulses present and dorsalis pedis pulses present; no JVD Extremities: no edema Gastrointestinal (Abdomen) normal bowel sounds, soft, nontender, no hepatosplenomegaly Musculoskeletal Extremities: + clubbing Skin no rashes, warm and dry Neurologic moves all extremities Psychiatric Orientation: alert and oriented x 3 Discharge Data Allergies Allergy/AdvReac Type Severity Reaction Status Date / Time No Known Allergies Allergy Mild Verified 08/05/20 13:58 Consultations Consult Case Management - Discharge Planning Routine PT, OT Hospital Course (1) Pneumonia due to COVID-19 virus: Date of diagnosis - 08/31/2020 (at time of admission). Symptoms began ~08/30/2020. s/p 5-day course of remdesivir while hospitalized. s/p 1 unit of convalescent plasma. Completed 7 of 10 days of decadron 6mg daily. Required [place] O2 much of his stay but this was weaned off about 24 hours prior to discharge. Two-step oxygen test on day of discharge showed NO NEED for ambulatory oxygen outside the hospital. He was cleared by PT/OT to return home. Prior to discharge essentially all COVID-19 symptoms were resolved. He had not had any fever since the night of admission. At discharge he will do the followin. complete 3 more days of decadron 6mg. 2. remain in isolation at his home until Saturday, September 11. Home health services were set up for Mr Monteiro at discharge. (2) Acute metabolic encephalopathy: 2nd to COVID-19. Resolved. (3) Acute respiratory failure with hypoxia: 2nd to COVID-19 infection - resolved. NC O2 weaned off prior to discharge. Two-step oxygen test showed NO NEED for ambulatory oxygen at home. (4) CLL (chronic lymphocytic leukemia): CBCs were stable throughout the hospitalization. Has not been following with oncology as an outpatient. (5) Prostate cancer: s/p XRT for such. No issues at this time. (6) Depression: Continue lexapro 5mg daily. (7) Intellectual disability: Home health services set up at discharge. Friends, family and neighbors help him at home. He still drives a car. 89yo recently from COVID-19. (8) DVT prophylaxis: Received Lovenox 30mg BID while hospitalized. Higher dose of chemical means were used due to the presence of COVID-19. Total Time Total Time Spent Total Time Spent (In Minutes): 45 Total Time Includes: Examination of the Patient, Discharge Planning, Medication Reconciliation and Communication With Other Providers Discharge Plan Discharge Items Patient Disposition: Home - Home Health Services Reason For Visit: COVID-19 INFECTION/PNEUMONIA Discharge Diagnosis: 1. COVID-19 infection (coronavirus infection) - improved/resolving 2. pneumonia due to COVID-19 - resolving Activity: As commented below Activity Comment: gradually increase your activites over the next 5 days at your home Bathing: No limitations Non-emergency contact: Primary Care Provider Call non-emergency contact if: you have any medication questions and your symptoms worsen Follow-up/Referrals: Martina Alvarez MD [Primary Care Provider] - 09/14/20 11:30 am (Please follow up with Dr. Alvarez via "virtual" visit on Saturday09/14/2020 at 11:30 am. If you are unable to keep this "virtual" visit time, please call the office to reschedule at [phone].) Diet: Regular Addtl Attending Provider Instructions: Mr Monteiro, You were treated for pneumonia due to COVID-19 infection (Coronavirus infection). You received multiple treatments including plasma that was donated by another person who had recovered from COVID-19, remdesivir anti-viral medication, and dexamethasone which is a steroid. With these treatments you improved over time and your oxygen was successfully stopped on 09/05/2020. Your lungs sound very good at time of discharge. Your labs and vital signs have been very good leading up to discharge. You will need to complete THREE MORE DAYS of dexamethasone steroid. I sent this to [facility] for you. Your first dose is tomorrow on Saturday, 09/07; your second dose is on , 09/08; and your third and final dose is on Saturday, 09/09. Take the steroid with food. YOU ARE CONTAGIOUS TO OTHERS (YOU CAN INFECT OTHERS WITH CORONAVIRUS) FOR THE NEXT 4-5 DAYS. YOU WILL NEED TO QUARANTINE YOURSELF IN YOUR HOME UNTIL Saturday, SEPTEMBER 11. THIS MEANS THAT YOU CANNOT LEAVE YOUR HOME UNTIL THAT TIME. YOU MAY NOT DRIVE TO THE STORE, YOU MAY NOT WALK TO YOUR NEIGHBOR'S HOUSE OR TO THE STORE, ETC. IT IS OK FOR YOU TO GO OUTSIDE IN YOUR YARD BUT NOTHING ELSE BESIDES THAT. DO NOT ALLOW VISITORS TO YOUR HOME AT THIS TIME. IT IS OK FOR YOUR FAMILY TO DROP FOOD, MEDICATIONS, ETC OFF TO YOUR HOUSE. AGAIN, ON SEPTEMBER 11 - LONG YOU CONTINUE TO FEEL WELL WITH NO FEVER, NO COUGH, ETC - YOU CAN COME OUT OF QUARANTINE AT THAT TIME. Please obtain a flu shot in the next few weeks as we are entering flu season. After you are out of quarantine please wear a mask AT ALL TIMES WHEN YOU LEAVE YOUR HOUSE. Follow-up -- please schedule a "virtual visit" with Dr Alvarez for 1 week from now Return to [facility] if -- * you experience recurrent fevers over 100 degrees * you develop severe cough * you develop shortness of breath * you develop chest pain * you have vomiting, severe diarrhea or abdominal pain * any other concerns Pending Studies at Discharge: No Stand-Alone Forms: My [facility], Smoking Cessation Medications and DC Order Prescriptions: Continued valacyclovir 500 mg tablet 500 mg PO BID Qty: 60 RF: 5 aspirin [Adult Low Dose Aspirin] 81 mg tablet,delayed release (DR/EC) 81 mg PO DAILY RF: 0 diphenhydramine HCl [Benadryl] 25 mg capsule 25 mg PO HS PRN (Reason: Unknown) RF: 0 escitalopram oxalate [Lexapro] 5 mg tablet 5 mg PO DAILY Qty: 30 RF: 2 Discharge Orders: Discharge Order (Routine); Ordered 09/06/20 Ordered By: Rj Alvarado Admission Data Admit Date/Time: 08/31/20 22:49 Attending Provider: Rj Alvarado Admit Provider: Rj Alvarado Primary Care Provider: Martina Alvarez Other Providers: Rj Alvarado Other Interventions: Discharge Summary Assessment (RN) Last Done: 09/06/20 13:45 Coding Level of Care Code D/C Day Management >30 mins Diagnoses Pneumonia due to COVID-19 virus U07.1; J12.89 Acute metabolic encephalopathy G93.41 Acute respiratory failure with hypoxia J96.01 CLL (chronic lymphocytic leukemia) C91.10 Prostate cancer C61 Depression F32.9 Depression Type: unspecified Intellectual disability F79 DVT prophylaxis Z29.9
== END 2020-09-06 18:15 | disposition home health service (06) | DRG 177 ==
LOC: ED 18:53 → SUATTDRO 22:49 → 2W 23:21 → 2S 09-02 22:05

== ENCOUNTER 2023-01-15 18:10 | Inpatient (IN) ==
[2023-01-15 18:52] LABS: iSTAT Creatinine 1.1 mg/dl (0.6-1.3); iSTAT Ionized Calcium 1.19 mmol/l (1.12-1.32); iSTAT Potassium 4.5 mmol/L (3.3-5.0)
--- NOTE | 2023-01-15 19:26 | Emergency Department Note ---
History of Present Illness General Chief complaint: Eye Problems Stated complaint: WENT BLIND IN HIS L EYE Time Seen by Provider: 01/15/23 19:02 Source: family (Stepdaughter at bedside) History of Present Illness Provider complaint: Vision loss right eye Onset (ago): day(s) 2 Location: eyes and right Maximum Pain Intensity: 4 87-year-old male with history of dementia presents emergency department for vision loss in his right eye. Patient is unable to give history and history is limited but provided by the stepdaughter at bedside. Stepdaughter reports that starting 2 days ago the patient lost vision in his right eye. Patient is reporting no pain per the stepdaughter. Stepdaughter reports that the patient went to go see ophthalmology Dr. Oshea then spoke with her PCP Dr. Ocasio and referred the patient to the emergency department. No reported falls. Patient is having no headaches. Home Medications Medication Instructions Recorded Confirmed Type aspirin 81 mg tablet,delayed 81 mg PO QAM 04/04/22 01/15/23 History release (Adult Low Dose Aspirin) valacyclovir 500 mg tablet 500 mg PO BID #180 tabs 12/19/22 01/15/23 Rx escitalopram oxalate 5 mg tablet 5 mg PO HS 01/15/23 01/15/23 History (Lexapro) omega-3 fatty acids 1,000 mg 1,000 mg PO QAM 01/15/23 01/15/23 History capsule pantoprazole 40 mg tablet,delayed 40 mg PO QAM 01/15/23 01/15/23 History release Allergies Allergy/AdvReac Type Severity Reaction Status Date / Time No Known Allergies Allergy Mild Verified 01/15/23 19:00 Past Med/Surg History Medical History (Updated 01/15/23 @ 22:35 by Adrian Carvalho) Acute respiratory failure with hypoxia Back pain CLL (chronic lymphocytic leukemia) PT UNSURE OF DETAILS Depression Depression GERD (gastroesophageal reflux disease) History of COVID-19 08/2020>HOSPITALIZED FOR PNEUMONIA *RESOLVED History of skin cancer Hypertension WAS ON LISINOPRIL>DAUGHTER STATES NO LONGER TAKING Intellectual disability Leg cramps Prostate cancer Stroke 5 YEARS AGO?>NO CURRENT PROBLEMS FROM EVENT Surgical History H/O umbilical hernia repair History of colonoscopy History of esophagogastroduodenoscopy (EGD) WITH ESOPHAGEAL STRETCHING History of prostate surgery UNSURE OF DETAILS History of tooth extraction Family History Father , "old age" No problems noted. Mother , "old age" No problems noted. Other No family history of adverse response to anesthesia Denies family history of Ovarian cancer Prostate cancer Myocardial infarction Breast cancer Colorectal cancer Social History (Updated 01/15/23 @ 21:55 by Arun Villaseñor MD) Smoking Status: Former smoker Tobacco Type: Cigarettes and Cigars Age Started Using Tobacco: 38; Age Quit Using Tobacco: 48; Second Hand Exposure: No; Hx Alcohol Use: No Hx Substance Use: No Preferred Language: [place] Communication Ability: Effective Hearing Ability: Hard of Hearing Concrete Bucket Loader Required: No Beliefs That Will Affect Care: None marital status: / marital status details: 2nd marriage; 1 step-daughter Current Living Situation: Alone Current Living Situation Comment: lives in [place] 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 How many Children do You have: 0 Feels Safe at Home: Yes Childhood Exposure to Second-Hand Smoke: No caffeine: No during the past year weight has: remained stable Dental Care, Regularly: Yes Physical Activity Frequency: Daily Physical Activity Frequency Comment: Yard work and house cleaning, very active Seatbelt Use: always Sunscreen Use: No Do you think of yourself as: straight/heterosexual Sexual Activity: has been sexually active, but not for at least 12 months Gender Identity: Male Assistive Devices: Denture - Upper, Glasses and Hearing Aid - Bilateral Physical Exam Vital Signs Vital Signs - 24 hr 01/15/23 18:16 01/15/23 18:42 01/15/23 20:21 Temperature 37.1 C Temperature Source Temporal Artery Scan Pulse Rate 66 67 Pulse Rate [Left Finger] 71 Respiratory Rate 18 14 Respiratory Effort / Characteristics Non-Labored Spontaneous Respiratory Depth Normal Blood Pressure 200/89 H Blood Pressure [Left Arm] 137/73 Blood Pressure Mean 126 Blood Pressure Mean [Left Arm] 94 Blood Pressure Position [Left Arm] Lying Pulse Oximetry 97 94 Oxygen Delivery Method Room Air Nasal Cannula Sepsis Recent Fever Within 48 Hours No Sepsis New/Unexplained Change in Mental Status No Sepsis Action Taken by Nursing No Action Required Physical Exam GENERAL: Patient is pleasantly demented HENT: Exam performed. - Head: Normocephalic and atraumatic. No pain on palpation of either muslim. EYES: Conjunctivae and EOM are normal. Pupils are equal, round, and reactive to light. Right eye exhibits no discharge. Left eye exhibits no discharge. No scleral icterus. Funduscopic exam shows no AV nicking or papilledema bilaterally. NECK: Normal range of motion. Neck supple. No JVD present. CV: Normal rate, regular rhythm, normal heart sounds and intact distal pulses. There is no peripheral edema. Palpable radial pulses bue. PULM/CHEST: Effort normal and breath sounds normal. No respiratory distress. No stridor. He has no wheezes. He has no rales. ABD: The abdomen is soft. NEURO: Motor and sensation grossly intact. No cerebellar ataxia. SKIN: Skin is warm and dry. He is not diaphoretic. Course Course 1901: The patient was evaluated in room A9. A complete history and physical exam was performed Cardiac monitoring: An order was placed for continuous cardiac monitoring. The monitor shows a rate of 70 with sinus rhythm interpreted by me I explained to the daughter at bedside that given the patient's symptoms began 2 days ago he is not a candidate for TNK and there is probably very limited they can be done for the patient if there is an ischemic stroke. I did offer to conduct scans to make sure that there is no hemorrhage. Daughter states that the patient lives by himself and she thinks he might need placement if he cannot see properly. We will obtain stroke work-up. 2049: Labs and imaging within normal limits. Had a long discussion with the patient's daughter as well as her son who is on the telephone who is also physician. Joint decision was made between us three that the patient be admitted to the hospital for PT and OT evaluation and possibly be placed into a facility neck and will take care of him given his dementia and now vision loss in his right eye. He has Dr. Polo Baytany hospitalist will evaluate the patient Administered Medications Discontinued Medications Ioversol (Optiray 320 500ml) 122 ml IV ONCE ONE Stop: 01/15/23 19:37 Last Admin: 01/15/23 19:38 Dose: 122 ml Documented By: MARIBETH Medical Decision Making Laboratory Data Attestation: I reviewed the patient's lab results. 01/15/23 18:35 01/15/23 18:35 Lab Results 01/15/23 01/15/23 01/15/23 Range/Units 18:35 18:35 18:35 WBC 11.48 H (4.8-10.8) K/ul RBC 4.40 L (4.70-6.10) M/uL Hgb 14.6 (14.0-18.0) g/dl POC Hgb (14.0-18.0) g/dl Hct 42.0 (42.0-52.0) % POC Hct (42-52) % MCV 95.5 (80.0-100.0) fL MCH 33.2 (25.0-34.0) pg MCHC 34.8 (32.0-36.0) g/dL RDW Std Deviation 48.3 H (36.4-46.3) fL RDW Coeff of Geovany 13.9 (11.5-14.5) % Plt Count 257 (130-400) K/uL MPV 9.9 (9.4-12.4) fL Immature Gran % (Auto) 0.2 % Neut % (Auto) 31.3 % Lymph % (Auto) 58.8 % Cobb % (Auto) 7.5 % Eos % (Auto) 1.9 % Baso % (Auto) 0.3 % Neut # (Auto) 3.59 (1.40-6.50) K/uL Lymph # (Auto) 6.75 H (1.2-3.4) K/uL Cobb # (Auto) 0.86 H (0.11-0.59) K/uL Eos # (Auto) 0.22 (0-0.50) K/uL Baso # (Auto) 0.04 (0-0.2) K/uL Immature Gran # (Auto) 0.02 (0.01-0.20) K/uL Smudge Cells Present Ovalocytes 1+ PT 10.8 (9.0-12.0) Seconds INR 1.0 (0.9-1.1) APTT 30.0 (21.0-31.0) Seconds PTT Ratio 1.1 POC Sodium (135-144) mmol/L Sodium 141 (136-145) mmol/L POC Potassium (3.3-5.0) mmol/L Potassium 4.5 (3.5-5.1) mmol/L POC Chloride (101-112) mmol/L Chloride 103 (98-107) mmol/L Carbon Dioxide 34 H (21-32) mmol/L POC Total CO2 (24-31) mmol/L Anion Gap 4 (3-11) POC Anion Gap (16-25) mmol/L POC BUN (7-18) mg/dl BUN 25 H (6-23) mg/dl Creatinine 1.10 (0.6-1.4) mg/dl POC Creatinine (0.6-1.3) mg/dl Est Cr Clr Drug Dosing 40.6 ml/min Est GFR ( Amer) 68.6 ml/min Est GFR (Non-Af Amer) 59.2 ml/min BUN/Creatinine Ratio 22.7 H (10-20) Glucose 98 (70-99(Fasting)) mg/dl POC Glucose (70-99) mg/dl POC Glucose (other) (70-99) mg/dl Calcium 10.0 (8.5-10.1) mg/dl POC Ioniz Calcium Robert (1.12-1.32) mmol/l Magnesium 2.4 (1.7-2.4) mg/dl Total Bilirubin 0.7 (0.2-1.0) mg/dl AST 16 (13-39) U/L ALT 14 (7-52) U/L Alkaline Phosphatase 67 (34-104) U/L Troponin I High Sens 6.0 (0-20) pg/ml Total Protein 7.9 (6.0-8.3) gm/dl Albumin 4.8 (3.4-5.0) gm/dl Globulin 3.1 (2.5-4.0) gm/dl Albumin/Globulin Ratio 1.5 (0.9-2) SARS-CoV-2, RNA, NAAT (NEGATIVE) Blood Type Antibody Screen 01/15/23 01/15/23 01/15/23 Range/Units 18:39 19:22 19:44 WBC (4.8-10.8) K/ul RBC (4.70-6.10) M/uL Hgb (14.0-18.0) g/dl POC Hgb 15.0 (14.0-18.0) g/dl Hct (42.0-52.0) % POC Hct 44 (42-52) % MCV (80.0-100.0) fL MCH (25.0-34.0) pg MCHC (32.0-36.0) g/dL RDW Std Deviation (36.4-46.3) fL RDW Coeff of Geovany (11.5-14.5) % Plt Count (130-400) K/uL MPV (9.4-12.4) fL Immature Gran % (Auto) % Neut % (Auto) % Lymph % (Auto) % Cobb % (Auto) % Eos % (Auto) % Baso % (Auto) % Neut # (Auto) (1.40-6.50) K/uL Lymph # (Auto) (1.2-3.4) K/uL Cobb # (Auto) (0.11-0.59) K/uL Eos # (Auto) (0-0.50) K/uL Baso # (Auto) (0-0.2) K/uL Immature Gran # (Auto) (0.01-0.20) K/uL Smudge Cells Ovalocytes PT (9.0-12.0) Seconds INR (0.9-1.1) APTT (21.0-31.0) Seconds PTT Ratio POC Sodium 142 (135-144) mmol/L Sodium (136-145) mmol/L POC Potassium 4.5 (3.3-5.0) mmol/L Potassium (3.5-5.1) mmol/L POC Chloride 102 (101-112) mmol/L Chloride (98-107) mmol/L Carbon Dioxide (21-32) mmol/L POC Total CO2 31 (24-31) mmol/L Anion Gap (3-11) POC Anion Gap 15.0 L (16-25) mmol/L POC BUN 24 H (7-18) mg/dl BUN (6-23) mg/dl Creatinine (0.6-1.4) mg/dl POC Creatinine 1.1 (0.6-1.3) mg/dl Est Cr Clr Drug Dosing ml/min Est GFR ( Amer) ml/min Est GFR (Non-Af Amer) ml/min BUN/Creatinine Ratio (10-20) Glucose (70-99(Fasting)) mg/dl POC Glucose 104 H (70-99) mg/dl POC Glucose (other) 98 (70-99) mg/dl Calcium (8.5-10.1) mg/dl POC Ioniz Calcium Robert 1.19 (1.12-1.32) mmol/l Magnesium (1.7-2.4) mg/dl Total Bilirubin (0.2-1.0) mg/dl AST (13-39) U/L ALT (7-52) U/L Alkaline Phosphatase (34-104) U/L Troponin I High Sens (0-20) pg/ml Total Protein (6.0-8.3) gm/dl Albumin (3.4-5.0) gm/dl Globulin (2.5-4.0) gm/dl Albumin/Globulin Ratio (0.9-2) SARS-CoV-2, RNA, NAAT (NEGATIVE) Blood Type A Negative Antibody Screen NEGATIVE 01/15/23 Range/Units 21:22 WBC (4.8-10.8) K/ul RBC (4.70-6.10) M/uL Hgb (14.0-18.0) g/dl POC Hgb (14.0-18.0) g/dl Hct (42.0-52.0) % POC Hct (42-52) % MCV (80.0-100.0) fL MCH (25.0-34.0) pg MCHC (32.0-36.0) g/dL RDW Std Deviation (36.4-46.3) fL RDW Coeff of Geovany (11.5-14.5) % Plt Count (130-400) K/uL MPV (9.4-12.4) fL Immature Gran % (Auto) % Neut % (Auto) % Lymph % (Auto) % Cobb % (Auto) % Eos % (Auto) % Baso % (Auto) % Neut # (Auto) (1.40-6.50) K/uL Lymph # (Auto) (1.2-3.4) K/uL Cobb # (Auto) (0.11-0.59) K/uL Eos # (Auto) (0-0.50) K/uL Baso # (Auto) (0-0.2) K/uL Immature Gran # (Auto) (0.01-0.20) K/uL Smudge Cells Ovalocytes PT (9.0-12.0) Seconds INR (0.9-1.1) APTT (21.0-31.0) Seconds PTT Ratio POC Sodium (135-144) mmol/L Sodium (136-145) mmol/L POC Potassium (3.3-5.0) mmol/L Potassium (3.5-5.1) mmol/L POC Chloride (101-112) mmol/L Chloride (98-107) mmol/L Carbon Dioxide (21-32) mmol/L POC Total CO2 (24-31) mmol/L Anion Gap (3-11) POC Anion Gap (16-25) mmol/L POC BUN (7-18) mg/dl BUN (6-23) mg/dl Creatinine (0.6-1.4) mg/dl POC Creatinine (0.6-1.3) mg/dl Est Cr Clr Drug Dosing ml/min Est GFR ( Amer) ml/min Est GFR (Non-Af Amer) ml/min BUN/Creatinine Ratio (10-20) Glucose (70-99(Fasting)) mg/dl POC Glucose (70-99) mg/dl POC Glucose (other) (70-99) mg/dl Calcium (8.5-10.1) mg/dl POC Ioniz Calcium Robert (1.12-1.32) mmol/l Magnesium (1.7-2.4) mg/dl Total Bilirubin (0.2-1.0) mg/dl AST (13-39) U/L ALT (7-52) U/L Alkaline Phosphatase (34-104) U/L Troponin I High Sens (0-20) pg/ml Total Protein (6.0-8.3) gm/dl Albumin (3.4-5.0) gm/dl Globulin (2.5-4.0) gm/dl Albumin/Globulin Ratio (0.9-2) SARS-CoV-2, RNA, NAAT NEGATIVE (NEGATIVE) Blood Type Antibody Screen Imaging Data Attestation: I personally reviewed and interpreted this imaging study as foll ows: My Impression: CT head: No [facility] Radiologist's Impression: Chest X-Ray 01/15/23 19:18 XR chest 1V portable CLINICAL HISTORY: neuro deficit, acute stroke suspected TECHNIQUE: Single frontal radiograph of the chest was obtained. Comparison: Comparison is made to chest radiograph 08/31/2020 FINDINGS: No lines and tubes are seen. Calcified aortic knob is seen. Reticular interstitial opacities are seen. No evidence of pleural effusion or pneumothorax. IMPRESSION: Interstitial lung disease is seen. This is unchanged from prior exam. ACT 112: Negative or not required by law. Electronically signed by: Jose Camargo M.D. 01/15/2023 7:[address] 01/15/23 19:18 CT angio neck with con, CT head/brain wo con, CT angio head w con CLINICAL HISTORY: neuro deficit, acute stroke suspected TECHNIQUE: Contiguous axial CT images of the head were acquired from the base of the skull to the vertex without intravenous contrast administration. CT angiography of the head and neck was performed following intravenous administration of iodinated contrast. Coronal and sagittal MIPS were obtained from the axial data set and were submitted for review. Automated dose lowering techniques and/or adjustment according to patient size were utilized for this examination. All measurements were calculated based on NASCET criteria. CT DOSE: 1132.72 mGy.cm Comparison: None available at the time of this dictation. FINDINGS: CT head: There is no acute intracranial hemorrhage or evidence of acute territorial infarction. No shift of the midline structures, mass effect, or extra-axial abnormalities are shown. There is bilateral sinus disease. Interstitial lung disease is noted. 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 CTA Neck: A 3 vessel aortic arch is shown. There is no significant atherosclerotic plaque in the aortic arch or the origins of the innominate, left common carotid, and left subclavian arteries. The common carotid, external carotid, cervical segments of the internal carotid arteries, and the cervical segments of the vertebral arteries are patent without hemodynamically significant stenosis. The left vertebral artery is dominant. CTA Head: The anterior and posterior cerebral circulations are patent. No hemodynamically significant stenosis, aneurysm, dissection, or arteriovenous malformation is shown. IMPRESSION: 1. No acute intracranial hemorrhage, evidence of acute territorial infarction, or other acute intracranial disease process. 2. No occlusion, hemodynamically significant stenosis, or dissection in the major cervical arteries. 3. No occlusion, hemodynamically significant stenosis, aneurysm, dissection, or arteriovenous malformation in the major intracranial arteries. Assessment of stenosis of the internal carotid arteries is based on NASCET criteria. ACT 112: Negative or not required by law. Electronically signed by: Jose Camargo M.D. 01/15/2023 8:18 PM Head CTA 01/15/23 19:18 CT angio neck with con, CT head/brain wo con, CT angio head w con CLINICAL HISTORY: neuro deficit, acute stroke suspected TECHNIQUE: Contiguous axial CT images of the head were acquired from the base of the skull to the vertex without intravenous contrast administration. CT angiography of the head and neck was performed following intravenous administration of iodinated contrast. Coronal and sagittal MIPS were obtained from the axial data set and were submitted for review. Automated dose lowering techniques and/or adjustment according to patient size were utilized for this examination. All measurements were calculated based on NASCET criteria. CT DOSE: 1132.72 mGy.cm Comparison: None available at the time of this dictation. FINDINGS: CT head: There is no acute intracranial hemorrhage or evidence of acute territorial infarction. No shift of the midline structures, mass effect, or extra-axial abnormalities are shown. There is bilateral sinus disease. Interstitial lung disease is noted. 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 CTA Neck: A 3 vessel aortic arch is shown. There is no significant atherosclerotic plaque in the aortic arch or the origins of the innominate, left common carotid, and left subclavian arteries. The common carotid, external carotid, cervical segments of the internal carotid arteries, and the cervical segments of the vertebral arteries are patent without hemodynamically significant stenosis. The left vertebral artery is dominant. CTA Head: The anterior and posterior cerebral circulations are patent. No hemodynamically significant stenosis, aneurysm, dissection, or arteriovenous malformation is shown. IMPRESSION: 1. No acute intracranial hemorrhage, evidence of acute territorial infarction, or other acute intracranial disease process. 2. No occlusion, hemodynamically significant stenosis, or dissection in the major cervical arteries. 3. No occlusion, hemodynamically significant stenosis, aneurysm, dissection, or arteriovenous malformation in the major intracranial arteries. Assessment of stenosis of the internal carotid arteries is based on NASCET criteria. ACT 112: Negative or not required by law. Electronically signed by: Jose Camargo M.D. 01/15/2023 8:18 PM Neck CTA 01/15/23 19:18 CT angio neck with con, CT head/brain wo con, CT angio head w con CLINICAL HISTORY: neuro deficit, acute stroke suspected TECHNIQUE: Contiguous axial CT images of the head were acquired from the base of the skull to the vertex without intravenous contrast administration. CT angiography of the head and neck was performed following intravenous administration of iodinated contrast. Coronal and sagittal MIPS were obtained from the axial data set and were submitted for review. Automated dose lowering techniques and/or adjustment according to patient size were utilized for this examination. All measurements were calculated based on NASCET criteria. CT DOSE: 1132.72 mGy.cm Comparison: None available at the time of this dictation. FINDINGS: CT head: There is no acute intracranial hemorrhage or evidence of acute territorial infarction. No shift of the midline structures, mass effect, or extra-axial abnormalities are shown. There is bilateral sinus disease. Interstitial lung disease is noted. 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 CTA Neck: A 3 vessel aortic arch is shown. There is no significant atherosclerotic plaque in the aortic arch or the origins of the innominate, left common carotid, and left subclavian arteries. The common carotid, external carotid, cervical segments of the internal carotid arteries, and the cervical segments of the vertebral arteries are patent without hemodynamically significant stenosis. The left vertebral artery is dominant. CTA Head: The anterior and posterior cerebral circulations are patent. No hemodynamically significant stenosis, aneurysm, dissection, or arteriovenous malformation is shown. IMPRESSION: 1. No acute intracranial hemorrhage, evidence of acute territorial infarction, or other acute intracranial disease process. 2. No occlusion, hemodynamically significant stenosis, or dissection in the major cervical arteries. 3. No occlusion, hemodynamically significant stenosis, aneurysm, dissection, or arteriovenous malformation in the major intracranial arteries. Assessment of stenosis of the internal carotid arteries is based on NASCET criteria. ACT 112: Negative or not required by law. Electronically signed by: Jose Camargo M.D. 01/15/2023 8:18 PM ECG Data Attestation: I personally reviewed and interpreted this ECG as follows: Indication: + other (cva) Rate (beats per minute): 72 Rhythm: + normal sinus ECG Intervals/blocks: + Normal QRS, + Normal WA and + Normal QT-c ECG ST segments: + Normal ST segments ECG Findings: + [facility] Narrative 1902: The patient was evaluated in room A9. A complete history and physical exam was performed Cardiac monitoring: An order was placed for continuous cardiac monitoring. The monitor shows a rate of 70 with sinus rhythm interpreted by me I explained to the daughter at bedside that given the patient's symptoms began 2 days ago he is not a candidate for TNK and there is probably very limited they can be done for the patient if there is an ischemic stroke. I did offer to conduct scans to make sure that there is no hemorrhage. Daughter states that the patient lives by himself and she thinks he might need placement if he cannot see properly. We will obtain stroke work-up. 2049: Labs and imaging within normal limits. Had a long discussion with the patient's daughter as well as her son who is on the telephone who is also physician. Joint decision was made between us three that the patient be admitted to the hospital for PT and OT evaluation and possibly be placed into a facility neck and will take care of him given his dementia and now vision loss in his right eye. He has Dr. Cuellar [facility] hospitalist will evaluate the patient Impression & Plan Loss of vision, Dementia Discharge Plan Visit Data Chief Complaint: Eye Problems Stated Complaint: WENT BLIND IN HIS L EYE ED Provider: Adrian Carvalho Discharge Problem: Loss of vision, Dementia Patient Disposition: Being Evaluated by Hospitalist Forms Stand Alone Forms: My [facility] Prescriptions Prescriptions: No Action valacyclovir 500 mg tablet 500 mg PO BID Qty: 180 1RF aspirin [Adult Low Dose Aspirin] 81 mg tablet,delayed release (DR/EC) 81 mg PO QAM omega-3 fatty acids 1,000 mg Capsule 1,000 mg PO QAM pantoprazole 40 mg tablet,delayed release (DR/EC) 40 mg PO QAM escitalopram oxalate [Lexapro] 5 mg tablet 5 mg PO HS Referrals Referrals: Martina Alvarez MD [Primary Care Provider] -
[2023-01-15 19:31] LABS: Hemoglobin 14.6 g/dl (14.0-18.0); Mean Corpuscular Hemoglobin 33.2 pg (25.0-34.0); Mean Corpuscular Hgb Conc 34.8 g/dL (32.0-36.0); Mean Corpuscular Volume 95.5 fL (80.0-100.0); Mean Platelet Volume 9.9 fL (9.4-12.4); Platelet Count 257 K/uL (130-400); RDW Coefficient of Variation 13.9 % (11.5-14.5); RDW Standard Deviation 48.3 fL (36.4-46.3); White Blood Count 11.48 K/ul (4.8-10.8)
[2023-01-15] MEDS ORDERED: OPTIRAY 320 500ml IV ONE (19:36)
[2023-01-15 19:50] LABS: Albumin Globulin Ratio 1.5 (0.9-2); Albumin Level 4.8 gm/dl (3.4-5.0); BUN Creatinine Ratio 22.7 (10-20); Bilirubin,Total 0.7 mg/dl (0.2-1.0); Creatinine Clr Calc Pharmacy 40.6 ml/min; Est GFR (African American) 68.6 ml/min; Est GFR (Non-African American) 59.2 ml/min; Globulin 3.1 gm/dl (2.5-4.0); Magnesium 2.4 mg/dl (1.7-2.4); Potassium 4.5 mmol/L (3.5-5.1); Total Protein 7.9 gm/dl (6.0-8.3)
[2023-01-15 20:00] LABS: Partial Thromboplastin Ratio 1.1; Prothrombin Time 10.8 Seconds (9.0-12.0)
--- NOTE | 2023-01-15 20:00 | XRay Report ---
XR chest 1V portable CLINICAL HISTORY: neuro deficit, acute stroke suspected TECHNIQUE: Single frontal radiograph of the chest was obtained. Comparison: Comparison is made to chest radiograph 08/31/2020 FINDINGS: No lines and tubes are seen. Calcified aortic knob is seen. Reticular interstitial opacities are seen . No evidence of pleural effusion or pneumothorax. IMPRESSION: Interstitial lung disease is seen. This is unchanged from prior exam. ACT 112: Negative or not required by law. Electronically signed by: Jose Camargo M.D. 01/15/2023 7:59 PM
--- NOTE | 2023-01-15 20:20 | CT Scan Report ---
CT angio neck with con, CT head/brain wo con, CT angio head w con CLINICAL HISTORY: neuro deficit, acute stroke suspected TECHNIQUE: Contiguous axial CT images of the head were acquired from the base of the skull to the minna torey without intravenous contrast administration. CT angiography of the head and neck was performed f ollowing intravenous administration of iodinated contrast. Coronal and sagittal MIPS were obtained fr om the axial data set and were submitted for review. Automated dose lowering techniques and/or adjus tment according to patient size were utilized for this examination. All measurements were calculated based on NASCET criteria. CT DOSE: 1132.72 mGy.cm Comparison: None available at the time of this dictation. FINDINGS: CT head: There is no acute intracranial hemorrhage or evidence of acute territorial infarction. No sh ift of the midline structures, mass effect, or extra-axial abnormalities are shown. There is bilatera l sinus disease. Interstitial lung disease is noted. 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 CTA Neck: A 3 vessel aortic arch is shown. There is no significant atherosclerotic plaque in the aor tic arch or the origins of the innominate, left common carotid, and left subclavian arteries. The c ommon carotid, external carotid, cervical segments of the internal carotid arteries, and the cervical segments of the vertebral arteries are patent without hemodynamically significant stenosis. The left vertebral artery is dominant. CTA Head: The anterior and posterior cerebral circulations are patent. No hemodynamically significan t stenosis, aneurysm, dissection, or arteriovenous malformation is shown. IMPRESSION: 1. No acute intracranial hemorrhage, evidence of acute territorial infarction, or other acute intrac ranial disease process. 2. No occlusion, hemodynamically significant stenosis, or dissection in the major cervical arteries. 3. No occlusion, hemodynamically significant stenosis, aneurysm, dissection, or arteriovenous malfor mation in the major intracranial arteries. Assessment of stenosis of the internal carotid arteries is based on NASCET criteria. ACT 112: Negative or not required by law. Electronically signed by: Jose Camargo M.D. 01/15/2023 8:18 PM
[2023-01-15 20:31] LABS: Basophils # (auto) 0.04 K/uL (0-0.2); Basophils % (auto) 0.3 %; Eosinophils # (auto) 0.22 K/uL (0-0.50); Eosinophils % (auto) 1.9 %; Immature Granulocytes # (auto) 0.02 K/uL (0.01-0.20); Immature Granulocytes % (auto) 0.2 %; Lymphocytes # (auto) 6.75 K/uL (1.2-3.4); Lymphocytes % (auto) 58.8 %; Monocytes # (auto) 0.86 K/uL (0.11-0.59); Monocytes % (auto) 7.5 %; Neutrophils # (auto) 3.59 K/uL (1.40-6.50); Neutrophils % (auto) 31.3 %; Ovalocytes 1+; Smudge Cells Present
--- NOTE | 2023-01-15 20:52 | History & Physical Report ---
Date of Service January 15, 2023 Assessment & Plan (1) Monocular vision loss: Plan: 87 year old male w/ PMHx of gerd, depression, HTN, CLL, prostate cancer, dysphagia, intellectual disability, dementia and hx of stroke who presents w/ painless right monocular vision loss since ~01/11/23. - has hx of stroke. considered central retinal artery occlusion, less likely CRVO (no flame hemorrhages), migraine - not tpa candidate given timing - less consistent w/ amaurosis fugax or retinal detachment. considered vascular occlusion vs optic pathway lesion - considered glaucoma, but air puff tonometry was normal (16 on left and 13 on right) - CTA head/neck neg - will order MRI orbits and MRI brain w/ and w/o contrast - neuro consult - permissive htn - on baby aspirin, so will add Plavix (75mg daily w/o loading dose) - esr, crp, a1c, lipid panel - consider obtaining records from ceramic tile mechanic - neuro checks, speech eval, PT and OT evals (2) Dysphagia: Plan: - Chronic. Patient had speech eval 02/2022 and EGD w/ dilation of moderate Schatzki ring in 03/2022. Family still reports recent dysphagia, so will obtain updated speech eval. (3) Abnormality of lung on CXR: Plan: - cxr suggests chronic ILD though there is no documented hx of this - O2 sat goal of 90%. Reassess volume status if worsening/increasing O2 requirement. (4) History of stroke: Plan: - reported hx, details unknown (5) HTN (hypertension): Plan: - was on lisinopril in past, no longer taking - permissive hypertension as per above, although initial event was likely several days ago (6) Depression: Plan: - continue home lexapro (7) Herpes: Plan: - on BID Valtrex. Patient reports hx of herpes but does not know specifics. Plan FEN/GI: NPO until speech eval. LR 60mL/hr x 1 bag. ppx: scds only in setting of monocular vision loss code: full, discussed w/ patient dispo: med tele History of Present Illness Chief Complaint: painless vision loss of right eye Primary Care Provider: Martina Alvarez MD 87 year old male w/ PMHx of gerd, depression, HTN, CLL, prostate cancer, dysphagia, intellectual disability, dementia and hx of stroke who presents w/ painless right monocular vision loss since ~01/11/23. He described blurriness and hazyness, but denied having floaters. He notes that the field of vision is narrowed in the right eye to just he center. His monocular vision loss was noticed by others when he went to [facility] on 01/13. He was then advised to see the ceramic tile mechanic (Dr. Oshea in [facility]) whom he saw on 01/14. The ceramic tile mechanic recommended informing patient's pcp who then instructed by phone today to visit the ED for eval. Denies current headache. No pain with eye movements. Has had intermittent near-syncopal type dizziness in past week. Occasional mild-mod frontal headaches, had some last week, but has had in past. He denies other symptoms. He notes that he had right eye trauma in distant past that required surgery of the tear duct. 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 He is here w/ stepdaughter and her . They are unfamilar with the details of his past medical history. Patient lives alone and drives. History may be limited secondary to intellectual disability. ED course: wbc 11.48. Hb 14.6. Cr 1.1, baseline .9. cmp reviewed. Unremarkable head/neck cta, head ct. cxr (ILD, unchanged). BP was 200/89 at arrival and improved to 137/73 without intervention. Allergies Allergy/AdvReac Type Severity Reaction Status Date / Time No Known Allergies Allergy Mild Verified 01/15/23 19:00 Home Medications Medication Instructions Recorded Confirmed Type aspirin 81 mg tablet,delayed 81 mg PO QAM 04/04/22 01/15/23 History release (Adult Low Dose Aspirin) valacyclovir 500 mg tablet 500 mg PO BID #180 tabs 12/19/22 01/15/23 Rx escitalopram oxalate 5 mg tablet 5 mg PO HS 01/15/23 01/15/23 History (Lexapro) omega-3 fatty acids 1,000 mg 1,000 mg PO QAM 01/15/23 01/15/23 History capsule pantoprazole 40 mg tablet,delayed 40 mg PO QAM 01/15/23 01/15/23 History release Past Med/Surg History Medical History (Updated 01/15/23 @ 23:30 by Arun Villaseñor MD) Acute respiratory failure with hypoxia Back pain CLL (chronic lymphocytic leukemia) PT UNSURE OF DETAILS Depression Depression GERD (gastroesophageal reflux disease) History of COVID-19 08/2020>HOSPITALIZED FOR PNEUMONIA *RESOLVED History of skin cancer Hypertension WAS ON LISINOPRIL>DAUGHTER STATES NO LONGER TAKING Intellectual disability Leg cramps Prostate cancer Stroke 5 YEARS AGO?>NO CURRENT PROBLEMS FROM EVENT Surgical History H/O umbilical hernia repair History of colonoscopy History of esophagogastroduodenoscopy (EGD) WITH ESOPHAGEAL STRETCHING History of prostate surgery UNSURE OF DETAILS History of tooth extraction Family History Father , "old age" No problems noted. Mother , "old age" No problems noted. Other No family history of adverse response to anesthesia Denies family history of Ovarian cancer Prostate cancer Myocardial infarction Breast cancer Colorectal cancer Social History (Updated 01/15/23 @ 21:55 by Arun Villaseñor MD) Smoking Status: Former smoker Tobacco Type: Cigarettes and Cigars Age Started Using Tobacco: 38; Age Quit Using Tobacco: 48; Second Hand Exposure: No; Do You Dip or Chew Tobacco: No; Hx Alcohol Use: No Hx Substance Use: No Preferred Language: Omani Communication Ability: Effective Hearing Ability: Hard of Hearing Dewatering Filtering Supervisor Required: No Beliefs That Will Affect Care: None marital status: / marital status details: 2nd marriage; 1 step-daughter Current Living Situation: Alone Current Living Situation Comment: lives in [place] 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 How many Children do You have: 0 Feels Safe at Home: Yes Childhood Exposure to Second-Hand Smoke: No caffeine: No during the past year weight has: remained stable Dental Care, Regularly: Yes Physical Activity Frequency: Daily Physical Activity Frequency Comment: Yard work and house cleaning, very active Seatbelt Use: always Sunscreen Use: No Do you think of yourself as: straight/heterosexual Sexual Activity: has been sexually active, but not for at least 12 months Gender Identity: Male Assistive Devices: Denture - Upper, Glasses and Hearing Aid - Bilateral Review of Systems Review of Systems: All systems reviewed & are unremarkable except as noted in HPI & below Physical Exam Physical Exam: General: Grossly A&O. NAD. Cooperative. Conversational though slight difficulty following complex directions, attributed to baseline dementia and/or intellectual disability. HEENT: Atraumatic, normocephalic. EOMI w/ both eyes opened. Pupils equal. R pupil is not reactive to light and there is no consensual response when light is shown into R eye. L pupil is reactive to light. There is consensual response. No nystagmus. R eye with L eye covered: patient is unable to see centrally or peripherally. No conjunctival injection. + mild teardrops of bilateral eyes. Limited funduscopic exam: could not focus. No flame hemorrhages noted. Pulm: Inspiratory crackles at bases, slightly worse on L. Patient had mild wheezes at that beginning of exam that cleared up upon repositioning. No respiratory distress. Cardiac: RRR. 2/6 systolic murmur. Abdominal: Nontender, nondistended, soft. Neuro: Other than the visual findings, other cranial nerves intact. No facial droop. No dysmetria. Normal strength and sensation of extremities. No slurring of speech. Results & Data Results & Data ([facility]) Vital Signs (Past 12 Hours) Vital Signs Temp Pulse Pulse Resp BP BP Pulse Ox 01/15/23 20:21 71 14 137/73 94 01/15/23 18:42 67 01/15/23 18:16 37.1 C 66 18 200/89 H 97 O2 Del Method 01/15/23 20:21 Nasal Cannula 01/15/23 18:42 01/15/23 18:16 Room Air Laboratory Results Cardiac Enzymes 01/15/23 Range/Units 18:35 AST 16 (13-39) U/L Troponin I High Sens 6.0 (0-20) pg/ml Coagulation 01/15/23 Range/Units 18:35 PT 10.8 (9.0-12.0) Seconds APTT 30.0 (21.0-31.0) Seconds CBC 01/15/23 Range/Units 18:35 WBC 11.48 H (4.8-10.8) K/ul RBC 4.40 L (4.70-6.10) M/uL Hgb 14.6 (14.0-18.0) g/dl Hct 42.0 (42.0-52.0) % Plt Count 257 (130-400) K/uL Neut # (Auto) 3.59 (1.40-6.50) K/uL Lymph # (Auto) 6.75 H (1.2-3.4) K/uL Webster # (Auto) 0.86 H (0.11-0.59) K/uL Eos # (Auto) 0.22 (0-0.50) K/uL Baso # (Auto) 0.04 (0-0.2) K/uL Comprehensive Metabolic Panel 01/15/23 Range/Units 18:35 Sodium 141 (136-145) mmol/L Potassium 4.5 (3.5-5.1) mmol/L Chloride 103 (98-107) mmol/L Carbon Dioxide 34 H (21-32) mmol/L BUN 25 H (6-23) mg/dl Creatinine 1.10 (0.6-1.4) mg/dl Glucose 98 (70-99(Fasting)) mg/dl Calcium 10.0 (8.5-10.1) mg/dl AST 16 (13-39) U/L ALT 14 (7-52) U/L Alkaline Phosphatase 67 (34-104) U/L Total Protein 7.9 (6.0-8.3) gm/dl Albumin 4.8 (3.4-5.0) gm/dl Intake and Output 01/15/23 01/15/23 01/15/23 06:59 14:59 22:59 Other: Weight 63 kg Weight Measurement Method Built in [facility] Patient Weight 01/16/23 06:59 Weight 63 kg Diagnostic Findings Chest X-Ray 01/15/23 19:18 XR chest 1V portable CLINICAL HISTORY: neuro deficit, acute stroke suspected TECHNIQUE: Single frontal radiograph of the chest was obtained. Comparison: Comparison is made to chest radiograph 08/31/2020 FINDINGS: No lines and tubes are seen. Calcified aortic knob is seen. Reticular interstitial opacities are seen. No evidence of pleural effusion or pneumothor ax. IMPRESSION: Interstitial lung disease is seen. This is unchanged from prior exam. ACT 112: Negative or not required by law. Electronically signed by: Jose Camargo M.D. 01/15/2023 7:[address] 01/15/23 19:18 CT angio neck with con, CT head/brain wo con, CT angio head w con CLINICAL HISTORY: neuro deficit, acute stroke suspected TECHNIQUE: Contiguous axial CT images of the head were acquired from the base of the skull to the vertex without intravenous contrast administration. CT angiography of the head and neck was performed following intravenous administration of iodinated contrast. Coronal and sagittal MIPS were obtained from the axial data set and were submitted for review. Automated dose lowering techniques and/or adjustment according to patient size were utilized for this examination. All measurements were calculated based on NASCET criteria. CT DOSE: 1132.72 mGy.cm Comparison: None available at the time of this dictation. FINDINGS: CT head: There is no acute intracranial hemorrhage or evidence of acute territorial infarction. No shift of the midline structures, mass effect, or extra-axial abnormalities are shown. There is bilateral sinus disease. Interstitial lung disease is noted. 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 CTA Neck: A 3 vessel aortic arch is shown. There is no significant atherosclerotic plaque in the aortic arch or the origins of the innominate, left common carotid, and left subclavian arteries. The common carotid, external carotid, cervical segments of the internal carotid arteries, and the cervical segments of the vertebral arteries are patent without hemodynamically significant stenosis. The left vertebral artery is dominant. CTA Head: The anterior and posterior cerebral circulations are patent. No hemodynamically significant stenosis, aneurysm, dissection, or arteriovenous malformation is shown. IMPRESSION: 1. No acute intracranial hemorrhage, evidence of acute territorial infarction, or other acute intracranial disease process. 2. No occlusion, hemodynamically significant stenosis, or dissection in the major cervical arteries. 3. No occlusion, hemodynamically significant stenosis, aneurysm, dissection, or arteriovenous malformation in the major intracranial arteries. Assessment of stenosis of the internal carotid arteries is based on NASCET criteria. ACT 112: Negative or not required by law. Electronically signed by: Jose Camargo M.D. 01/15/2023 8:18 PM Head CTA 01/15/23 19:18 CT angio neck with con, CT head/brain wo con, CT angio head w con CLINICAL HISTORY: neuro deficit, acute stroke suspected TECHNIQUE: Contiguous axial CT images of the head were acquired from the base of the skull to the vertex without intravenous contrast administration. CT angiography of the head and neck was performed following intravenous administration of iodinated contrast. Coronal and sagittal MIPS were obtained from the axial data set and were submitted for review. Automated dose lowering techniques and/or adjustment according to patient size were utilized for this ex amination. All measurements were calculated based on NASCET criteria. CT DOSE: 1132.72 mGy.cm Comparison: None available at the time of this dictation. FINDINGS: CT head: There is no acute intracranial hemorrhage or evidence of acute territorial infarction. No shift of the midline structures, mass effect, or extra-axial abnormalities are shown. There is bilateral sinus disease. Interstitial lung disease is noted. 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 CTA Neck: A 3 vessel aortic arch is shown. There is no significant atherosclerotic plaque in the aortic arch or the origins of the innominate, left common carotid, and left subclavian arteries. The common carotid, external carotid, cervical segments of the internal carotid arteries, and the cervical segments of the vertebral arteries are patent without hemodynamically significant stenosis. The left vertebral artery is dominant. CTA Head: The anterior and posterior cerebral circulations are patent. No hemodynamically significant stenosis, aneurysm, dissection, or arteriovenous malformation is shown. IMPRESSION: 1. No acute intracranial hemorrhage, evidence of acute territorial infarction, or other acute intracranial disease process. 2. No occlusion, hemodynamically significant stenosis, or dissection in the major cervical arteries. 3. No occlusion, hemodynamically significant stenosis, aneurysm, dissection, or arteriovenous malformation in the major intracranial arteries. Assessment of stenosis of the internal carotid arteries is based on NASCET criteria. ACT 112: Negative or not required by law. Electronically signed by: Jose Camargo M.D. 01/15/2023 8:18 PM Neck CTA 01/15/23 19:18 CT angio neck with con, CT head/brain wo con, CT angio head w con CLINICAL HISTORY: neuro deficit, acute stroke suspected TECHNIQUE: Contiguous axial CT images of the head were acquired from the base of the skull to the vertex without intravenous contrast administration. CT angiography of the head and neck was performed following intravenous administration of iodinated contrast. Coronal and sagittal MIPS were obtained from the axial data set and were submitted for review. Automated dose lowering techniques and/or adjustment according to patient size were utilized for this examination. All measurements were calculated based on NASCET criteria. CT DOSE: 1132.72 mGy.cm Comparison: None available at the time of this dictation. FINDINGS: CT head: There is no acute intracranial hemorrhage or evidence of acute territorial infarction. No shift of the midline structures, mass effect, or extra-axial abnormalities are shown. There is bilateral sinus disease. Interstitial lung disease is noted. 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 CTA Neck: A 3 vessel aortic arch is shown. There is no significant atherosclerotic plaque in the aortic arch or the origins of the innominate, left common carotid, and left subclavian arteries. The common carotid, external carotid, cervical segments of the internal carotid arteries, and the cervical segments of the vertebral arteries are patent without hemodynamically significant stenosis. The left vertebral artery is dominant. CTA Head: The anterior and posterior cerebral circulations are patent. No hemodynamically significant stenosis, aneurysm, dissection, or arteriovenous malformation is shown. IMPRESSION: 1. No acute intracranial hemorrhage, evidence of acute territorial infarction, or other acute intracranial disease process. 2. No occlusion, hemodynamically significant stenosis, or dissection in the major cervical arteries. 3. No occlusion, hemodynamically significant stenosis, aneurysm, dissection, or arteriovenous malformation in the major intracranial arteries. Assessment of stenosis of the internal carotid arteries is based on NASCET criteria. ACT 112: Negative or not required by law. Electronically signed by: Jose Camargo M.D. 01/15/2023 8:18 PM ECG Additional Comments: ecg interpreted by me. nsr 72. LVH. No sig change when compared to ecg from 03/07/22. Code Status & VTE Plan Code Status full VTE Prophylaxis Plan VTE Prophylaxis will be ordered: Yes Supervising Physician Co-Signing Physician Notes Patient seen and examined, chart reviewed, case discussed with Dr. Villaseñor and I agree with the assessment and plan as documented above. In brief, patient is an 87-year-old male with history of GERD, depression, hypertension, CLL, prostate cancer and dementia presenting with painless monocular vision loss of the right eye. He describes blurry, hazy vision approximately 2 days ago which has pr ogressed now to visual field narrowing in the right eye to just the center. Patient was seen by optometry. Patient states he can make out shapes with his right eye. On physical exam patient is afebrile, hemodynamic stable, resting comfortably in bed. Extraocular muscles intact. No pain on eye movement. Right pupil is not reactive. + Tearing. + S1, S2, regular Lungs CTA Abdomen soft, nontender, nondistended Images Reviewed Labs Reviewed Assessment/[id number] male presenting with painless vision loss in the right eye. Differential to include central retinal artery occlusion, central retinal vein occlusion, less likely acute glaucoma given normal pressures obtained by Dr. Villaseñor. Possibly mass, CVA Check MRI brain, MRI orbits Continue aspirin. We will add Plavix Check ESR and CRP Neurology consultation appreciated Remainder of plan as above Resident Activity Tracking Resident Involvement: Resident Care Provided Care Provided: Adult Hospital Medicine
[2023-01-15] MEDS ORDERED: CLOPIDOGREL BISULFATE 75 MG TAB PO STA (22:47)
[2023-01-15] MEDS ORDERED: PHARMACIST DISCHARGE MED REC CONSULT PRN (23:31)
--- NOTE | 2023-01-16 01:35 | Billing Data ---
Date of Service January 15, 2023 Coding Level of Care Code 17342 INT INP/OBS CARE
[2023-01-16] MEDS ORDERED: LACTATED RINGER'S 1,000 ML IV SCH (03:00)
[2023-01-16] MEDS: ASPIRIN 81 MG ECTAB PO SCH (07:19)
[2023-01-16] MEDS: valACYclovir HCL 500 MG TABLET PO SCH ×2 (07:19→21:22)
[2023-01-16] MEDS: PANTOprazole 40 MG TAB PO SCH (07:19)
--- NOTE | 2023-01-16 07:20 | Medical Student Progress Note ---
Date of Service January 16, 2023 Assessment & Plan (1) Monocular vision loss: Plan: 87 year old male w/ PMHx of gerd, depression, HTN, CLL, prostate cancer, dysphagia, intellectual disability, dementia and hx of stroke who presents w/ painless right monocular vision loss since ~01/11/23. - Has hx of stroke. Considered central retinal artery occlusion. Not tpa candidate given timing. Less consistent w/ amaurosis fugax or retinal detachment. Considered vascular occlusion vs optic pathway lesion. Considered glaucoma, but air puff tonometry was normal (16 on left and 13 on right) - CTA head/neck neg - LDL 130s, goal < 70, started on atorvastatin 40mg - esr, crp elevated - A1c 6.1, goal <7 -Neuro consulted -follow up with his eye doctor once discharged -Please order MCOT (mobile cardiac outpatient telemetry) or ICM (insertable monitoring analyst) if never had intermediate school teacher cardiac monitoring previously. -if found to have atrial flutter or fibrillation, should consider anticoagulation therapy if no contraindication. -PT/OT/speech (2) Dysphagia: Plan: Chronic. Patient had speech eval 02/2022 and EGD w/ dilation of moderate Schatzki ring in 03/2022. Family still reports recent dysphagia, so will obtain updated speech eval. (3) Abnormality of lung on CXR: Plan: -cxr suggests chronic ILD though there is no documented hx of this -O2 sat goal of 90%. Reassess volume status if worsening/increasing O2 requirement. -Consider HRCT of chest as outpatient including PFTs and labs (rheumatoid factor, anticyclic citrullinated peptide, antinuclear antibody, antisynthetase antibodies, creatine kinase, aldolase, Sjgren antibodies and scleroderma antibodies.) -consider pulmonology consult for further evaluation (4) History of stroke: Plan: - reported hx, details unknown (5) HTN (hypertension): Plan: - was on lisinopril in past, no longer taking - previous need for permissive hypertension, although initial event was likely several days ago - consider starting losartan 25 now that 24-48hrs has passed - Cont. DAPT with aspirin/plavix, will likely need 90 days at least - appreciate neuro recs (6) Depression: Plan: - continue home lexapro (7) Herpes: Plan: - on BID Valtrex. Patient reports hx of herpes but does not know specifics. (8) GERD (gastroesophageal reflux disease): Plan: -cont. home protonix Plan FEN/GI: regular east to chew, LRs @60mL/hr ppx: SCDs only in setting of monocular vision loss code: full, discussed w/ patient dispo: med tele Admission and Anticipated Discharge Date Admission Date: January 15, 2023 Supervising Attestation Attending attestation Pt seen and examined in concert with Dr. Holt, St. Dr. Recinos. In agreement with the documented findings as noted in the resident documentation with any exceptions or additions as noted here. Resting comfortably in bed without change to his presenting visual symptoms. Reports no coughing/choking, SOB, PARSONS, hearing changes. On examination, S1/S2 nl RRR no MCG. CTAB. Abd NT/ND BS+ve Monocular vision loss concerning for vascular event with h/o CVA - neuro consult - PT/OT/SILICA MIXER OPERATOR evaluations. DAPT, statin therapy. Dysphagia - evaluate for underlying pathology and manage. SILICA MIXER OPERATOR as above. HTN - start losartan in AM for BP control if needed. Else see resident documentation as noted. Subjective pt feels the same and right eye vision still decreased with blue haze. Pt can detect motion but nothing more. Hx of smoking but quit 15 years ago. No trouble breathing or chest pain. Pt does have right hand numbness periodically that can be in the shoulder, forearm, or hand and this has been going on for months. Pt sometimes drops things due to this. No swelling of the extremities. Review of Systems Review of Systems: All systems reviewed & are unremarkable except as noted in HPI & below Physical Exam Physical Exam: General: well appearing, laying comfortably HEENT: Atraumatic, normocephalic. EOMI w/ both eyes opened. Pupils equal. No afferent pupillary defect noted. Right eye cloudy vs left eye. Right eye can only detect motion with no visual acuity. Pulm: scattered rhonchi, crackles at the base bilaterally, non labored breathing Cardiac: RRR no MRG, no carotid bruits, symmetric radial pulses. Neuro: No facial droop. no focal neuro deficits. CN2-12 intact. Results & Data ([facility]) Vital Signs (Past 12 Hours) Vital Signs Temp Pulse Pulse Resp BP BP Pulse Ox 01/16/23 07:11 58 L 01/16/23 03:11 36.8 C 62 20 122/70 94 01/16/23 00:50 69 01/16/23 00:18 01/16/23 00:18 37.0 C 74 20 160/71 H 94 01/15/23 23:33 37.0 C 74 20 160/71 H 94 01/15/23 23:19 69 22 119/67 94 01/15/23 22:40 75 01/15/23 20:21 71 14 137/73 94 O2 Del Method O2 Flow Rate 01/16/23 07:11 01/16/23 03:11 Nasal Cannula 2 01/16/23 00:50 01/16/23 00:18 Nasal Cannula 2 01/16/23 00:18 Nasal Cannula 2 01/15/23 23:33 Nasal Cannula 2 01/15/23 23:19 Nasal Cannula 2 01/15/23 22:40 01/15/23 20:21 Nasal Cannula
[2023-01-16 07:50] LABS: Hematocrit (blood only) 37.3 % (42.0-52.0); Hemoglobin 12.9 g/dl (14.0-18.0); Mean Corpuscular Hemoglobin 32.4 pg (25.0-34.0); Mean Corpuscular Hgb Conc 34.6 g/dL (32.0-36.0); Mean Corpuscular Volume 93.7 fL (80.0-100.0); Mean Platelet Volume 9.4 fL (9.4-12.4); Platelet Count 220 K/uL (130-400); RDW Coefficient of Variation 13.3 % (11.5-14.5); RDW Standard Deviation 45.1 fL (36.4-46.3); Red Blood Count 3.98 M/uL (4.70-6.10); White Blood Count 9.41 K/ul (4.8-10.8)
[2023-01-16 08:06] LABS: Albumin Globulin Ratio 1.4 (0.9-2); Albumin Level 3.9 gm/dl (3.4-5.0); BUN Creatinine Ratio 21.1 (10-20); C Reactive Protein 3.81 mg/dl (0-0.5); Calcium 9.2 mg/dl (8.5-10.1); Chol HDL Ratio 5.8 (0-5); Creatinine Clr Calc Pharmacy 49.3 ml/min; Est GFR (African American) 81.9 ml/min; Est GFR (Non-African American) 70.7 ml/min; Globulin 2.8 gm/dl (2.5-4.0); Magnesium 2.3 mg/dl (1.7-2.4); Potassium 4.3 mmol/L (3.5-5.1); Total Protein 6.7 gm/dl (6.0-8.3)
[2023-01-16 08:49] LABS: Estimated Average Glucose 128 mg/dl; Hemoglobin A1C 6.1 % (4.5-5.6)
[2023-01-16 08:51] LABS: Basophils # (auto) 0.04 K/uL (0-0.2); Basophils % (auto) 0.4 %; Eosinophils # (auto) 0.16 K/uL (0-0.50); Eosinophils % (auto) 1.7 %; Immature Granulocytes # (auto) 0.02 K/uL (0.01-0.20); Immature Granulocytes % (auto) 0.2 %; Monocytes # (auto) 0.57 K/uL (0.11-0.59); Monocytes % (auto) 6.1 %; Neutrophils # (auto) 3.82 K/uL (1.40-6.50); Neutrophils % (auto) 40.6 %; Ovalocytes 1+; Smudge Cells Present
[2023-01-16] MEDS ORDERED: GADOBUTROL 65ML VIAL IV ONE (09:44)
--- NOTE | 2023-01-16 10:10 | Electrocardiogram Report ---
Test Reason : Blood Pressure : / mmHG Vent. Rate : 064 BPM Atrial Rate : 064 BPM P-R Int : 152 ms QRS Dur : 094 ms QT Int : 440 ms P-R-T Axes : 054 -24 031 degrees QTc Int : 453 ms Poor data quality, interpretation may be adversely affected Normal sinus rhythm Moderate voltage criteria for LVH, may be normal variant Nonspecific ST abnormality Borderline ECG Confirmed by Reji Ochoa ([id number]) on 01/16/2023 10:09:35 AM Referred By: REFERRED SELF Confirmed By:Rehan Ochoa
--- NOTE | 2023-01-16 10:14 | Electrocardiogram Report ---
Test Reason : Blood Pressure : / mmHG Vent. Rate : 072 BPM Atrial Rate : 072 BPM P-R Int : 138 ms QRS Dur : 090 ms QT Int : 402 ms P-R-T Axes : 052 -24 047 degrees QTc Int : 440 ms Poor data quality, interpretation may be adversely affected Normal sinus rhythm Moderate voltage criteria for LVH, may be normal variant Nonspecific ST abnormality Borderline ECG When compared with ECG of 15-JAN-2023 18:28, (unconfirmed) No significant change was found Confirmed by Reji Ochoa ([id number]) on 01/16/2023 10:13:27 AM Referred By: REFERRED SELF Confirmed By:Rehan Ochoa
--- NOTE | 2023-01-16 12:32 | Neurology Consultation ---
Date of Consultation January 16, 2023 Assessment & Plan (1) Ischemic stroke: Plan Neurology Consultation Assessment & Plan: Impression: pt with acute ischemic stroke rt hemisphere that likely stared more than 5 days ago with rt vision disturbance. CTA without LVO. at this point, his stroke is subacute in nature and not much acute intervention is needed. pt already on ASA/plavix therapy. Recommendations: * DAPT continue. * Images: TTE with bubble. * no need for permissive HTN as his stroke is now more than 5 days old. * Long-term SBP goal less than 130. * Plenty of hydration including IV fluid. Avoid hypovolemia and hypotension. * Initiate DVT prevention therapy * Avoid hypoglycemia, serum glucose goal during hospitalization: 140-180 * Long-term HgA1c goal less than 7 * Start statin if not on it.Long-term LDL goal of less than 70. * Head of bed up 30 degree if possible. * Stroke education * Smoke cessation education if a smoker. * Telemetry monitoring.Please order MCOT (mobile cardiac outpatient telemetry) orICM (insertable lunchroom monitor) if never had terminal clerk cardiac monitoring previously. And if found to have atrial flutter or fibrillation, should consider anticoagulation therapy if no contraindication. * Fall precaution * Physical/occupational therapy follow up with his eye doctor once discharged. otherwise not much add from neurology at this point. please call again if new question. Chart reviewed I have spent more than 50% educating patient about potential diagnosis and neurological evaluation and coordinating care with patient's treatment team. Total time spent: 80 min (this includes chart review and documentation) Dr. Carmelo Guzman MD [facility] Neurology Chief Complaint: vision change. HISTORY OF PRESENT ILLNESS:pt this morning feeling well. rt eye vision still blurred. mri brain noted for multiple rt side ischemic stroke, no occipital lesion noted. no weakness. pt overall stable. chart reviewed. Admission/Initial HPI:87 year old male w/ PMHx of gerd, depression, HTN, CLL, prostate cancer, dysphagia, intellectual disability, dementia and hx of stroke who presents w/ painless right monocular vision loss since ~01/11/23. He describe d blurriness and hazyness, but denied having floaters. He notes that the field of vision is narrowed in the right eye to just he center. His monocular vision loss was noticed by others when he went to [employer]ec[employer] on 01/13. He was then advised to see the vocal artist (Dr. Oshea in [facility]) whom he saw on 01/14. The vocal artist recommended informing patient's pcp who then instructed by phone today to visit the ED for eval. Denies current headache. No pain with eye movements. Has had intermittent near-syncopal type dizziness in past week. Occasional mild-mod frontal headaches, had some last week, but has had in past. He denies other symptoms. He notes that he had right eye trauma in distant past that required surgery of the tear duct. 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 He is here w/ stepdaughter and her . They are unfamilar with the details of his past medical history. Patient lives alone and drives. History may be limited secondary to intellectual disability. Past Medical History: See chart Meds: See chart Social & Family History: See chart Review of Systems: Per HPI. Physical Exam: General Statement: not in acute distress, well appearing Mental Status: Oriented fully . Normal comprehension, no neglect, Fluent speech, No apraxia, no L/R confusion. Cranial Nerves: Visual howe were full except rt eye with diffuse monocular decrease vision. PERRL.Extraocular movements were full with no nystagmus. Normal pursuit.Facial movements were symmetric.Hearing was grossly intact.Palate elevated symmetrically.Sternocleidomastoid and trapezius muscles were 5/5 and equal bilaterally.Tongue extended midline. Motor: Strength was 5/5 and equal bilaterally. Normal tone.There were no abnormal movements or pronator drift. Sensory:intact to touch bilaterally Coordination: intact bilaterally Reflexes: Toes down bilaterally History of Present Illness Attending Physician: Maximilian Duran MD Allergies Allergy/AdvReac Type Severity Reaction Status Date / Time No Known Allergies Allergy Mild Verified 01/15/23 19:00 Home Medications Medication Instructions Recorded Confirmed Type aspirin 81 mg tablet,delayed 81 mg PO QAM 04/04/22 01/15/23 History release (Adult Low Dose Aspirin) valacyclovir 500 mg tablet 500 mg PO BID #180 tabs 12/19/22 01/15/23 Rx escitalopram oxalate 5 mg tablet 5 mg PO HS 01/15/23 01/15/23 History (Lexapro) omega-3 fatty acids 1,000 mg 1,000 mg PO QAM 01/15/23 01/15/23 History capsule pantoprazole 40 mg tablet,delayed 40 mg PO QAM 01/15/23 01/15/23 History release Patient History Medical History (Updated 01/16/23 @ 12:39 by Carmelo Guzman MD) Acute respiratory failure with hypoxia Back pain CLL (chronic lymphocytic leukemia) PT UNSURE OF DETAILS Depression Depression GERD (gastroesophageal reflux disease) History of COVID-19 08/2020>HOSPITALIZED FOR PNEUMONIA *RESOLVED History of skin cancer Hypertension WAS ON LISINOPRIL>DAUGHTER STATES NO LONGER TAKING Intellectual disability Leg cramps Prostate cancer Stroke 5 YEARS AGO?>NO CURRENT PROBLEMS FROM EVENT Surgical History H/O umbilical hernia repair History of colonoscopy History of esophagogastroduodenoscopy (EGD) WITH ESOPHAGEAL STRETCHING History of prostate surgery UNSURE OF DETAILS History of tooth extraction Family History Father , "old age" No problems noted. Mother , "old age" No problems noted. Other No family history of adverse response to anesthesia Denies family history of Ovarian cancer Prostate cancer Myocardial infarction Breast cancer Colorectal cancer Social History (Updated 01/15/23 @ 21:55 by Arun Villaseñor MD) Smoking Status: Former smoker Tobacco Type: Cigarettes and Cigars Age Started Using Tobacco: 38; Age Quit Using Tobacco: 48; Second Hand Exposure: No; Do You Dip or Chew Tobacco: No; Hx Alcohol Use: No Hx Substance Use: No Preferred Language: Sammarinese Communication Ability: Effective Hearing Ability: Hard of Hearing Clin Tech Required: No Beliefs That Will Affect Care: None marital status: / marital status details: 2nd marriage; 1 step-daughter Current Living Situation: Alone Current Living Situation Comment: lives in [place] 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 How many Children do You have: 0 Feels Safe at Home: Yes Childhood Exposure to Second-Hand Smoke: No caffeine: No during the past year weight has: remained stable Dental Care, Regularly: Yes Physical Activity Frequency: Daily Physical Activity Frequency Comment: Yard work and house cleaning, very active Seatbelt Use: always Sunscreen Use: No Do you think of yourself as: straight/heterosexual Sexual Activity: has been sexually active, but not for at least 12 months Gender Identity: Male Assistive Devices: Cane Results & Data ([facility]) Vital Signs (Past 12 Hours) Vital Signs Temp Pulse Pulse Resp BP BP Pulse Ox 01/16/23 11:41 37.1 C 68 16 121/68 96 01/16/23 08:05 36.3 C L 62 16 178/80 H 95 01/16/23 07:11 58 L 01/16/23 03:11 36.8 C 62 20 122/70 94 01/16/23 00:50 69 O2 Del Method O2 Flow Rate 01/16/23 11:41 Nasal Cannula 2 01/16/23 08:05 Nasal Cannula 1 01/16/23 07:11 01/16/23 03:11 Nasal Cannula 2 01/16/23 00:50
--- NOTE | 2023-01-16 12:55 | Magnetic Resonance Report ---
MR orbit wo/w con CLINICAL HISTORY: monocular vision loss Technique: Multiplanar, multisequence MR images of the orbits were obtained before and after intrave nous administration of gadolinium contrast. COMPARISON: Comparison is made to MRI brain Findings: The optic nerves are within normal limits with regard to size and signal intensity. They are symmetrical bilaterally. No abnormal enhancement is shown within the intraorbital, intracanalicu lar, or intracranial segments of the optic nerves. There are no intraorbital masses. The extraocular muscles are symmetrical bilaterally and normally enhance. The optic globes and lacrimal glands are n ormal. The optic chiasm and optic tracts are normal. There is no compression of the optic chiasm. Th ere are no masses or areas of abnormal signal or enhancement within visible portions of the brain par enchyma. Extensive sinus disease is seen. Impression: 1. Negative MRI examination of the orbits. 2. Sinus disease. ACT 112: Negative or not required by law. Electronically signed by: Jose Camargo M.D. 01/16/2023 12:54 PM
--- NOTE | 2023-01-16 14:23 | Magnetic Resonance Report ---
MRI OF THE BRAIN WITHOUT AND WITH IV CONTRAST CLINICAL HISTORY: Monocular vision loss. COMPARISON STUDY: Head CT and CTA of the head January 15, 2023. TECHNIQUE: Utilizing a 1.5 Sandra magnet and dedicated coil, multiplanar, multiecho imaging of the br ain was performed pre and postcontrast administration. IV administration of 6.5 mL of Gadavist contr ast was uneventful. FINDINGS: Note is made of multiple small foci of restricted diffusion within the right cerebral hemis phere. The largest is a 1.1 cm right frontoparietal focus on axial image 14 of . There is no mass e ffect. There is no evidence for hemorrhage. Ventricular system is unremarkable. Basal cisterns are pa tent. There are no extra axial collections. Flow-voids for the major intracranial vessels are present . There is no intracranial mass or pathologic enhancement. Large air-fluid level within the right max illary sinus is noted. A small air-fluid level within left maxillary sinus is present. This extensive ethmoid sinus opacification. IMPRESSION: 1. Several small acute infarcts within the right cerebral hemisphere, as described above. No mass eff ect. No hemorrhage. 2. Maxillary and ethmoid sinusitis. 3. No intracranial mass or pathologic enhancement. ACT 112: Negative or not required by law. Electronically signed by: Michel Edmonds M.D. 01/16/2023 2:20 PM
--- NOTE | 2023-01-16 14:30 | Pharmacy Report ---
- Date of Service January 16, 2023 - Pharmacy CVA/TIA Medication Review Medications to Prevent Stroke handout has been added to the patients discharge packet. Antiplatelet(s) * aspirin 81 mg PO daily + clopidogrel 75 mg PO daily Cholesterol * High intensity statin: atorvastatin 40 mg PO daily DVT Prophylaxis * SCD knee Therapeutic Anticoagulation * No history of Afib/Aflutter noted Type 2 Diabetes * Patient does not have T2DM
[2023-01-16] MEDS: ATORVASTATIN 40 MG TAB PO SCH (15:52)
[2023-01-16] MEDS: ESCITALOPRAM OXALATE 10 MG TAB PO SCH (21:21)
--- NOTE | 2023-01-17 07:32 | Hospitalist Progress Note ---
Date of Service January 17, 2023 Assessment & Plan (1) Monocular vision loss: Plan: 87 year old male w/ PMHx of gerd, depression, HTN, CLL, prostate cancer, dysphagia, intellectual disability, dementia and hx of stroke who presents w/ painless right monocular vision loss since ~01/11/23. - Has hx of stroke. Lost likely etiology of vision changes central retinal artery occlusion. Not tpa candidate given timing. - Considered glaucoma, but air puff tonometry was normal (16 on left and 13 on right) - CTA head/neck neg - Echo with bubble study normal - LDL 130s, goal < 70, started on atorvastatin 40mg - esr, crp elevated - A1c 6.1, goal <7 - Dual antiplatelet therapy -Neuro consulted -follow up with his eye doctor once discharged -Order MCOT (mobile cardiac outpatient telemetry) or ICM (insertable director of cardiac cath lab) upon discharge -PT/OT/speech (2) Dysphagia: Plan: Chronic. Patient had speech eval 02/2022 and EGD w/ dilation of moderate Schatzki ring in 03/2022. Family still reports recent dysphagia - speech eval this admission without concern for aspiration (3) Abnormality of lung on CXR: Plan: -cxr suggests chronic ILD though there is no documented hx of this -O2 sat goal of 90%. Reassess volume status if worsening/increasing O2 requirement. -Consider HRCT of chest as outpatient including PFTs and labs (rheumatoid factor, anticyclic citrullinated peptide, antinuclear antibody, antisynthetase antibodies, creatine kinase, aldolase, Sjgren antibodies and scleroderma antibodies.) (4) History of stroke: Plan: - reported hx, details unknown (5) HTN (hypertension): Plan: - was on lisinopril in past, no longer taking - previous need for permissive hypertension, although initial event was likely several days ago - blood pressure has been well controlled (6) Depression: Plan: - continue home lexapro (7) Herpes: Plan: - on BID Valtrex. Patient reports hx of herpes but does not know specifics. (8) GERD (gastroesophageal reflux disease): Plan: -cont. home protonix Plan FEN/GI: regular east to chew, LRs @60mL/hr ppx: SCDs only in setting of monocular vision loss code: full, discussed w/ patient dispo: med tele Admission and Anticipated Discharge Date Admission Date: January 15, 2023 Supervising Physician Co-Signing Physician Notes Attending attestation Pt seen and examined in concert with Dr. Vallejo. In agreement with the documented findings as noted in the resident documentation with any exceptions or additions as noted here. Ambulating with PT without significant effort nor complaint. Reports no coughing/choking, SOB, PARSONS, hearing changes. On examination, S1/S2 nl RRR no MCG. CTAB. Abd NT/ND BS+ve Monocular vision loss concerning for vascular event with h/o CVA - neuro consult - PT/OT/BLIND STITCH MACHINE OPERATOR evaluations. DAPT, statin therapy. Else see resident documentation as noted. Subjective No events overnight. Pt states that he has had an intermittent frontal headache. Not currently having a headache. Otherwise is feeling well. States that his vision is similar to yesterday. Review of Systems Review of Systems: As per above Physical Exam Physical Exam: Constitutional: well-appearing, no acute distress HEENT: NCAT, no conjunctival injection CV: regular rhythm, no murmur appreciated, extremities well-perfused, no LE edema Resp: CTABL, no wheezes/rales/rhonchi appreciated, no increased work of breathing MSK: no gross deformities appreciated Skin: warm, dry, no rash appreciated Neuro: alert, oriented, no focal neurologic deficit appreciated. CN II-XII Results & Data Results & Data ([facility]) Vital Signs (Past 12 Hours) Vital Signs Temp Pulse Pulse Resp BP BP Pulse Ox 01/17/23 03:42 36.5 C 52 L 20 108/62 94 01/17/23 00:28 52 L 01/16/23 23:20 36.5 C 54 L 18 130/70 94 01/16/23 21:30 01/16/23 19:39 36.6 C 59 L 20 133/72 94 O2 Del Method O2 Flow Rate 01/17/23 03:42 Nasal Cannula 2 01/17/23 00:28 01/16/23 23:20 Nasal Cannula 2 01/16/23 21:30 Nasal Cannula 2 01/16/23 19:39 Nasal Cannula 2 Resident Activity Tracking Resident Involvement: Resident Care Provided Care Provided: Adult Hospital Medicine
[2023-01-17 08:03] LABS: Hematocrit (blood only) 37.1 % (42.0-52.0); Hemoglobin 12.6 g/dl (14.0-18.0); Mean Corpuscular Hemoglobin 32.2 pg (25.0-34.0); Mean Corpuscular Volume 94.9 fL (80.0-100.0); Mean Platelet Volume 9.7 fL (9.4-12.4); Platelet Count 224 K/uL (130-400); RDW Coefficient of Variation 13.2 % (11.5-14.5); RDW Standard Deviation 45.5 fL (36.4-46.3); Red Blood Count 3.91 M/uL (4.70-6.10); White Blood Count 8.72 K/ul (4.8-10.8)
[2023-01-17 08:27] LABS: BUN Creatinine Ratio 22.9 (10-20); Calcium 8.9 mg/dl (8.5-10.1); Creatinine Clr Calc Pharmacy 48.6 ml/min; Est GFR (African American) 80.9 ml/min; Est GFR (Non-African American) 69.8 ml/min; Potassium 4.1 mmol/L (3.5-5.1)
[2023-01-17] MEDS: CLOPIDOGREL BISULFATE 75 MG TAB PO SCH (09:16)
[2023-01-17] MEDS: PANTOprazole 40 MG TAB PO SCH (09:16)
[2023-01-17] MEDS: valACYclovir HCL 500 MG TABLET PO SCH ×2 (09:16→20:47)
[2023-01-17] MEDS: ATORVASTATIN 40 MG TAB PO SCH (09:16)
[2023-01-17] MEDS: ASPIRIN 81 MG ECTAB PO SCH (09:16)
[2023-01-17 09:26] LABS: Basophils # (auto) 0.03 K/uL (0-0.2); Basophils % (auto) 0.3 %; Eosinophils # (auto) 0.23 K/uL (0-0.50); Eosinophils % (auto) 2.6 %; Immature Granulocytes # (auto) 0.02 K/uL (0.01-0.20); Immature Granulocytes % (auto) 0.2 %; Lymphocytes # (auto) 4.99 K/uL (1.2-3.4); Lymphocytes % (auto) 57.2 %; Monocytes # (auto) 0.49 K/uL (0.11-0.59); Monocytes % (auto) 5.6 %; Neutrophils # (auto) 2.96 K/uL (1.40-6.50); Neutrophils % (auto) 34.1 %; Smudge Cells Present
[2023-01-17] MEDS ORDERED: ACETAMINOPHEN 325 MG TAB PO PRN (10:14)
--- NOTE | 2023-01-17 12:35 | XCELERA ---
[id number]
[2023-01-17] MEDS: ESCITALOPRAM OXALATE 10 MG TAB PO SCH (20:47)
[2023-01-18] MEDS: ATORVASTATIN 40 MG TAB PO SCH (07:26)
[2023-01-18] MEDS: valACYclovir HCL 500 MG TABLET PO SCH (07:26)
[2023-01-18] MEDS: CLOPIDOGREL BISULFATE 75 MG TAB PO SCH (07:26)
[2023-01-18] MEDS: PANTOprazole 40 MG TAB PO SCH (07:26)
[2023-01-18] MEDS: ASPIRIN 81 MG ECTAB PO SCH (07:26)
--- NOTE | 2023-01-18 07:26 | Hospitalist Progress Note ---
Date of Service January 18, 2023 Assessment & Plan (1) Monocular vision loss: Plan: 87 year old male w/ PMHx of gerd, depression, HTN, CLL, prostate cancer, dysphagia, intellectual disability, dementia and hx of stroke who presents w/ painless right monocular vision loss since ~01/11/23. - Has hx of stroke. Lost likely etiology of vision changes central retinal artery occlusion. Not tpa candidate given timing. - Considered glaucoma, but air puff tonometry was normal (16 on left and 13 on right) - CTA head/neck neg - Echo with bubble study normal - Neurology consulted and felt etiology likely acute ischemic stroke Plan: Dual antiplatelet therapy, atorvastatin 40mg - could consider residential cardiac monitoring at home; discuss with PCP. Risk vs benefits of anticoagulation if he were to be found to have an irregular rhythm -PT/OT; recommending rehab- He is agreeable. Referrals placed by case management. Would also recommend driving assessment while he is at rehab. (2) Dysphagia: Plan: Chronic. Patient had speech eval 02/2022 and EGD w/ dilation of moderate Schatzki ring in 03/2022. Family still reports recent dysphagia - speech eval this admission without concern for aspiration (3) Abnormality of lung on CXR: Plan: -cxr suggests chronic ILD though there is no documented hx of this -O2 sat goal of 90%. Reassess volume status if worsening/increasing O2 requirement. -Consider HRCT of chest as outpatient including PFTs and labs (rheumatoid factor, anticyclic citrullinated peptide, antinuclear antibody, antisynthetase antibodies, creatine kinase, aldolase, Sjgren antibodies and scleroderma antibodies.) (4) History of stroke: Plan: - reported hx, details unknown (5) HTN (hypertension): Plan: - was on lisinopril in past, no longer taking - previous need for permissive hypertension, although initial event was likely several days ago - blood pressure has been well controlled (6) Depression: Plan: - continue home lexapro (7) Herpes: Plan: - on BID Valtrex. Patient reports hx of herpes but does not know specifics. (8) GERD (gastroesophageal reflux disease): Plan: -cont. home protonix Plan FEN/GI: regular east to chew ppx: SCDs only in setting of monocular vision loss code: full, discussed w/ patient dispo: med tele Admission and Anticipated Discharge Date Admission Date: January 17, 2023 Subjective Doing well this morning without complaints. Vision is similar to yesterday. Mild frontal headache, intermittent. Tolerating good PO intake. Review of Systems Review of Systems: As per above Physical Exam Physical Exam: Constitutional: well-appearing, no acute distress HEENT: NCAT, no conjunctival injection CV: regular rhythm, no murmur appreciated, extremities well-perfused, no LE edema Resp: CTABL, no wheezes/rales/rhonchi appreciated, no increased work of breathing MSK: no gross deformities appreciated Skin: warm, dry, no rash appreciated Neuro: alert, oriented, no focal neurologic deficit appreciated. CN II-XII Results & Data Results & Data ([facility]) Vital Signs (Past 12 Hours) Vital Signs Temp Pulse Pulse Resp BP Pulse Ox Pulse Ox 01/18/23 07:19 36.4 C L 53 L 20 148/73 H 96 01/18/23 07:04 50 L 01/18/23 04:28 36.4 C L 61 18 119/62 97 01/17/23 23:52 36.7 C 59 L 18 143/75 H 96 01/17/23 22:19 59 L 01/17/23 23:00 94 01/17/23 22:37 O2 Del Method O2 Del Method O2 Flow Rate O2 Flow Rate 01/18/23 07:19 Nasal Cannula 2 01/18/23 07:04 01/18/23 04:28 Nasal Cannula 2 01/17/23 23:52 Nasal Cannula 2 01/17/23 22:19 01/17/23 23:00 Nasal Cannula 2 01/17/23 22:37 Nasal Cannula 2 Resident Activity Tracking Resident Involvement: Resident Care Provided Care Provided: Adult Hospital Medicine
--- NOTE | 2023-01-18 16:43 | Discharge Summary ---
Date of Service January 18, 2023 Admission HPI Per Admitting Provider 87 year old male w/ PMHx of gerd, depression, HTN, CLL, prostate cancer, dysphagia, intellectual disability, dementia and hx of stroke who presents w/ painless right monocular vision loss since ~01/11/23. He described blurriness and hazyness, but denied having floaters. He notes that the field of vision is narrowed in the right eye to just he center. His monocular vision loss was noticed by others when he went to tenriism on 01/13. He was then advised to see the fitness supervisor (Dr. Oshea in [facility]) whom he saw on 01/14. The fitness supervisor recommended informing patient's pcp who then instructed by phone today to visit the ED for eval. Denies current headache. No pain with eye movements. Has had intermittent near-syncopal type dizziness in past week. Occasional mild-mod frontal headaches, had some last week, but has had in past. He denies other symptoms. He notes that he had right eye trauma in distant past that required surgery of the tear duct. 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 He is here w/ stepdaughter and her . They are unfamilar with the details of his past medical history. Patient lives alone and drives. History may be limited secondary to intellectual disability. ED course: wbc 11.48. Hb 14.6. Cr 1.1, baseline .9. cmp reviewed. Unremarkable head/neck cta, head ct. cxr (ILD, unchanged). BP was 200/89 at arrival and improved to 137/73 without intervention. Principal Diagnosis Monocular Vision Loss Discharge Exam Constitutional: well-appearing, no acute distress HEENT: NCAT, no conjunctival injection CV: regular rhythm, no murmur appreciated, extremities well-perfused, no LE edema Resp: CTABL, no wheezes/rales/rhonchi appreciated, no increased work of breathing MSK: no gross deformities appreciated Skin: warm, dry, no rash appreciated Neuro: alert, oriented, no focal neurologic deficit appreciated. CN II-XII Discharge Data Allergies Allergy/AdvReac Type Severity Reaction Status Date / Time No Known Allergies Allergy Mild Verified 01/15/23 19:00 Consultations 01/15/23 20:51 ED Decision to Admit Stat 01/15/23 23:31 Consult Neurology Routine Ordered Studies 01/15/23 19:18 CT angio head w con Stat CT angio neck with con Stat CT head/brain wo con Stat 01/15/23 23:24 MRI Brain [MR brain wo/w con] Routine MRI Orbit [MR orbit wo/w con] Routine Laboratory Results WBC 8.72 K/ul (4.8-10.8) 01/17/23 07:33 RBC 3.91 M/uL (4.70-6.10) L 01/17/23 07:33 Hgb 12.6 g/dl (14.0-18.0) L 01/17/23 07:33 POC Hgb 15.0 g/dl (14.0-18.0) 01/15/23 18:39 Hct 37.1 % (42.0-52.0) L 01/17/23 07:33 POC Hct 44 % (42-52) 01/15/23 18:39 MCV 94.9 fL (80.0-100.0) 01/17/23 07:33 MCH 32.2 pg (25.0-34.0) 01/17/23 07:33 MCHC 34.0 g/dL (32.0-36.0) 01/17/23 07:33 RDW Std Deviation 45.5 fL (36.4-46.3) 01/17/23 07:33 RDW Coeff of Geovany 13.2 % (11.5-14.5) 01/17/23 07:33 Plt Count 224 K/uL (130-400) 01/17/23 07:33 MPV 9.7 fL (9.4-12.4) 01/17/23 07:33 Immature Gran % (Auto) 0.2 % 01/17/23 07:33 Neut % (Auto) 34.1 % 01/17/23 07:33 Lymph % (Auto) 57.2 % 01/17/23 07:33 Casey % (Auto) 5.6 % 01/17/23 07:33 Eos % (Auto) 2.6 % 01/17/23 07:33 Baso % (Auto) 0.3 % 01/17/23 07:33 Neut # (Auto) 2.96 K/uL (1.40-6.50) 01/17/23 07:33 Lymph # (Auto) 4.99 K/uL (1.2-3.4) H 01/17/23 07:33 Casey # (Auto) 0.49 K/uL (0.11-0.59) 01/17/23 07:33 Eos # (Auto) 0.23 K/uL (0-0.50) 01/17/23 07:33 Baso # (Auto) 0.03 K/uL (0-0.2) 01/17/23 07:33 Immature Gran # (Auto) 0.02 K/uL (0.01-0.20) 01/17/23 07:33 Smudge Cells Present 01/17/23 07:33 Ovalocytes 1+ 01/16/23 07:17 ESR 29 mm/hr (0-20) H 01/16/23 07:17 PT 10.8 Seconds (9.0-12.0) 01/15/23 18:35 INR 1.0 (0.9-1.1) 01/15/23 18:35 APTT 30.0 Seconds (21.0-31.0) 01/15/23 18:35 PTT Ratio 1.1 01/15/23 18:35 POC Sodium 142 mmol/L (135-144) 01/15/23 18:39 Sodium 137 mmol/L (136-145) 01/17/23 07:33 POC Potassium 4.5 mmol/L (3.3-5.0) 01/15/23 18:39 Potassium 4.1 mmol/L (3.5-5.1) 01/17/23 07:33 POC Chloride 102 mmol/L (101-112) 01/15/23 18:39 Chloride 104 mmol/L (98-107) 01/17/23 07:33 Carbon Dioxide 30 mmol/L (21-32) 01/17/23 07:33 POC Total CO2 31 mmol/L (24-31) 01/15/23 18:39 Anion Gap 3 (3-11) 01/17/23 07:33 POC Anion Gap 15.0 mmol/L (16-25) L 01/15/23 18:39 POC BUN 24 mg/dl (7-18) H 01/15/23 18:39 BUN 22 mg/dl (6-23) 01/17/23 07:33 Creatinine 0.96 mg/dl (0.6-1.4) 01/17/23 07:33 POC Creatinine 1.1 mg/dl (0.6-1.3) 01/15/23 18:39 Est Cr Clr Drug Dosing 48.6 ml/min 01/17/23 07:33 Est GFR ( Amer) 80.9 ml/min 01/17/23 07:33 Est GFR (Non-Af Amer) 69.8 ml/min 01/17/23 07:33 BUN/Creatinine Ratio 22.9 (10-20) H 01/17/23 07:33 Glucose 90 mg/dl (70-99(Fasting)) 01/17/23 07:33 POC Glucose 104 mg/dl (70-99) H 01/15/23 19:44 POC Glucose (other) 98 mg/dl (70-99) 01/15/23 18:39 Estimat Average Glucose 128 mg/dl 01/16/23 07:17 Hemoglobin A1c 6.1 % (4.5-5.6) H 01/16/23 07:17 Calcium 8.9 mg/dl (8.5-10.1) 01/17/23 07:33 POC Ioniz Calcium Robert 1.19 mmol/l (1.12-1.32) 01/15/23 18:39 Magnesium 2.3 mg/dl (1.7-2.4) 01/16/23 07:17 Total Bilirubin 1.0 mg/dl (0.2-1.0) 01/16/23 07:17 AST 12 U/L (13-39) L 01/16/23 07:17 ALT 10 U/L (7-52) 01/16/23 07:17 Alkaline Phosphatase 56 U/L (34-104) 01/16/23 07:17 Troponin I High Sens 6.0 pg/ml (0-20) 01/15/23 18:35 C-Reactive Protein 3.81 mg/dl (0-0.5) H 01/16/23 07:17 Total Protein 6.7 gm/dl (6.0-8.3) 01/16/23 07:17 Albumin 3.9 gm/dl (3.4-5.0) 01/16/23 07:17 Globulin 2.8 gm/dl (2.5-4.0) 01/16/23 07:17 Albumin/Globulin Ratio 1.4 (0.9-2) 01/16/23 07:17 Triglycerides 64 mg/dl (0-150) 01/16/23 07:17 Cholesterol 162 mg/dl (0-200) 01/16/23 07:17 LDL Cholesterol, Calc 121 mg/dl 01/16/23 07:17 VLDL Cholesterol, Calc 13 mg/dl (0-30) 01/16/23 07:17 HDL Cholesterol 28 mg/dl 01/16/23 07:17 Cholesterol/HDL Ratio 5.8 (0-5) H 01/16/23 07:17 SARS-CoV-2, RNA, NAAT NEGATIVE (NEGATIVE) 01/15/23 21:22 Blood Type A Negative 01/15/23 19:22 Antibody Screen NEGATIVE 01/15/23 19:22 Impressions Chest X-Ray 01/15/23 19:18 XR chest 1V portable CLINICAL HISTORY: neuro deficit, acute stroke suspected TECHNIQUE: Single frontal radiograph of the chest was obtained. Comparison: Comparison is made to chest radiograph 08/31/2020 FINDINGS: No lines and tubes are seen. Calcified aortic knob is seen. Reticular interstitial opacities are seen. No evidence of pleural effusion or pneumothorax. IMPRESSION: Interstitial lung disease is seen. This is unchanged from prior exam. ACT 112: Negative or not required by law. Electronically signed by: Jose Camargo M.D. 01/15/2023 7:[address] 01/15/23 19:18 CT angio neck with con, CT head/brain wo con, CT angio head w con CLINICAL HISTORY: neuro deficit, acute stroke suspected TECHNIQUE: Contiguous axial CT images of the head were acquired from the base of the skull to the vertex without intravenous contrast administration. CT angiography of the head and neck was performed following intravenous administration of iodinated contrast. Coronal and sagittal MIPS were obtained from the axial data set and were submitted for review. Automated dose lowering techniques and/or adjustment according to patient size were utilized for this examination. All measurements were calculated based on NASCET criteria. CT DOSE: 1132.72 mGy.cm Comparison: None available at the time of this dictation. FINDINGS: CT head: There is no acute intracranial hemorrhage or evidence of acute territorial infarction. No shift of the midline structures, mass effect, or extra-axial abnormalities are shown. There is bilateral sinus disease. Interstitial lung disease is noted. 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 CTA Neck: A 3 vessel aortic arch is shown. There is no significant atherosclerotic plaque in the aortic arch or the origins of the innominate, left common carotid, and left subclavian arteries. The common carotid, external carotid, cervical segments of the internal carotid arteries, and the cervical segments of the vertebral arteries are patent without hemodynamically significant stenosis. The left vertebral artery is dominant. CTA Head: The anterior and posterior cerebral circulations are patent. No he modynamically significant stenosis, aneurysm, dissection, or arteriovenous malformation is shown. IMPRESSION: 1. No acute intracranial hemorrhage, evidence of acute territorial infarction, or other acute intracranial disease process. 2. No occlusion, hemodynamically significant stenosis, or dissection in the major cervical arteries. 3. No occlusion, hemodynamically significant stenosis, aneurysm, dissection, or arteriovenous malformation in the major intracranial arteries. Assessment of stenosis of the internal carotid arteries is based on NASCET criteria. ACT 112: Negative or not required by law. Electronically signed by: Jose Camargo M.D. 01/15/2023 8:18 PM Head CTA 01/15/23 19:18 CT angio neck with con, CT head/brain wo con, CT angio head w con CLINICAL HISTORY: neuro deficit, acute stroke suspected TECHNIQUE: Contiguous axial CT images of the head were acquired from the base of the skull to the vertex without intravenous contrast administration. CT angiography of the head and neck was performed following intravenous administration of iodinated contrast. Coronal and sagittal MIPS were obtained from the axial data set and were submitted for review. Automated dose lowering techniques and/or adjustment according to patient size were utilized for this examination. All measurements were calculated based on NASCET criteria. CT DOSE: 1132.72 mGy.cm Comparison: None available at the time of this dictation. FINDINGS: CT head: There is no acute intracranial hemorrhage or evidence of acute territorial infarction. No shift of the midline structures, mass effect, or extra-axial abnormalities are shown. There is bilateral sinus disease. Interstitial lung disease is noted. 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 CTA Neck: A 3 vessel aortic arch is shown. There is no significant atherosclerotic plaque in the aortic arch or the origins of the innominate, left common carotid, and left subclavian arteries. The common carotid, external carotid, cervical segments of the internal carotid arteries, and the cervical segments of the vertebral arteries are patent without hemodynamically significant stenosis. The left vertebral artery is dominant. CTA Head: The anterior and posterior cerebral circulations are patent. No hemodynamically significant stenosis, aneurysm, dissection, or arteriovenous malformation is shown. IMPRESSION: 1. No acute intracranial hemorrhage, evidence of acute territorial infarction, or other acute intracranial disease process. 2. No occlusion, hemodynamically significant stenosis, or dissection in the major cervical arteries. 3. No occlusion, hemodynamically significant stenosis, aneurysm, dissection, or arteriovenous malformation in the major intracranial arteries. Assessment of stenosis of the internal carotid arteries is based on NASCET criteria. ACT 112: Negative or not required by law. Electronically signed by: Jose Camargo M.D. 01/15/2023 8:18 PM Neck CTA 01/15/23 19:18 CT angio neck with con, CT head/brain wo con, CT angio head w con CLINICAL HISTORY: neuro deficit, acute stroke suspected TECHNIQUE: Contiguous axial CT images of the head were acquired from the base of the skull to the vertex without intravenous contrast administration. CT angiography of the head and neck was performed following intravenous administration of iodinated contrast. Coronal and sagittal MIPS were obtained from the axial data set and were submitted for review. Automated dose lowering techniques and/or adjustment according to patient size were utilized for this examination. All measurements were calculated based on NASCET criteria. CT DOSE: 1132.72 mGy.cm Comparison: None available at the time of this dictation. FINDINGS: CT head: There is no acute intracranial hemorrhage or evidence of acute territorial infarction. No shift of the midline structures, mass effect, or extra-axial abnormalities are shown. There is bilateral sinus disease. Interstitial lung disease is noted. 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 CTA Neck: A 3 vessel aortic arch is shown. There is no significant atherosclerotic plaque in the aortic arch or the origins of the innominate, left common carotid, and left subclavian arteries. The common carotid, external carotid, cervical segments of the internal carotid arteries, and the cervical segments of the vertebral arteries are patent without hemodynamically significant stenosis. The left vertebral artery is dominant. CTA Head: The anterior and posterior cerebral circulations are patent. No hemodynamically significant stenosis, aneurysm, dissection, or arteriovenous malformation is shown. IMPRESSION: 1. No acute intracranial hemorrhage, evidence of acute territorial infarction, or other acute intracranial disease process. 2. No occlusion, hemodynamically significant stenosis, or dissection in the major cervical arteries. 3. No occlusion, hemodynamically significant stenosis, aneurysm, dissection, or arteriovenous malformation in the major intracranial arteries. Assessment of stenosis of the internal carotid arteries is based on NASCET criteria. ACT 112: Negative or not required by law. Electronically signed by: Jose Camargo M.D. 01/15/2023 8:18 PM Brain MRI 01/15/23 23:24 MRI OF THE BRAIN WITHOUT AND WITH IV CONTRAST CLINICAL HISTORY: Monocular vision loss. COMPARISON STUDY: Head CT and CTA of the head January 15, 2023. TECHNIQUE: Utilizing a 1.5 Sandra magnet and dedicated coil, multiplanar, multiecho imaging of the brain was performed pre and postcontrast administration. IV administration of 6.5 mL of Gadavist contrast was uneventful. FINDINGS: Note is made of multiple small foci of restricted diffusion within the right cerebral hemisphere. The largest is a 1.1 cm right frontoparietal focus on axial image 14 of . There is no mass effect. There is no evidence for hemorrhage. Ventricular system is unremarkable. Basal cisterns are patent. There are no extra axial collections. Flow-voids for the major intracranial vessels are present. There is no intracranial mass or pathologic enhancement. Large air- fluid level within the right maxillary sinus is noted. A small air-fluid level within left maxillary sinus is present. This extensive ethmoid sinus opacification. IMPRESSION: 1. Several small acute infarcts within the right cerebral hemisphere, as described above. No mass effect. No hemorrhage. 2. Maxillary and ethmoid sinusitis. 3. No intracranial mass or pathologic enhancement. ACT 112: Negative or not required by law. Electronically signed by: Michel Edmonds M.D. 01/16/2023 2:20 PM Orbit MRI 01/15/23 23:24 MR orbit wo/w con CLINICAL HISTORY: monocular vision loss Technique: Multiplanar, multisequence MR images of the orbits were obtained before and after intravenous administration of gadolinium contrast. COMPARISON: Comparison is made to MRI brain Findings: The optic nerves are within normal limits with regard to size and signal intensity. They are symmetrical bilaterally. No abnormal enhancement is shown within the intraorbital, intracanalicular, or intracranial segments of the optic nerves. There are no intraorbital masses. The extraocular muscles are symmetrical bilaterally and normally enhance. The optic globes and lacrimal glands are normal. The optic chiasm and optic tracts are normal. There is no compression of the optic chiasm. There are no masses or areas of abnormal signal or enhancement within visible portions of the brain parenchyma. Extensive sinus disease is seen. Impression: 1. Negative MRI examination of the orbits. 2. Sinus disease. ACT 112: Negative or not required by law. Electronically signed by: Jose Camargo M.D. 01/16/2023 12:54 PM Hospital Course (1) Monocular vision loss: 1) Monocular vision loss: 87 year old male w/ PMHx of gerd, depression, HTN, CLL, prostate cancer, dysphagia, intellectual disability, dementia and hx of stroke who presents w/ painless right monocular vision loss since ~01/11/23. - Has hx of stroke. Lost likely etiology of vision changes central retinal artery occlusion. Not tpa candidate given timing. - Considered glaucoma, but air puff tonometry was normal (16 on left and 13 on right) - CTA head/neck neg - Echo with bubble study normal - Neurology consulted and felt etiology likely acute ischemic stroke Plan: Dual antiplatelet therapy, atorvastatin 40mg - could consider intermediate frame tender cardiac monitoring at home; discuss with PCP. Risk vs benefits of anticoagulation if he were to be found to have an irregular rhythm -PT/OT; recommending rehab- He is agreeable. Would also recommend driving assessment while he is at rehab. 2) Dysphagia: Chronic. Patient had speech eval 02/2022 and EGD w/ dilation of moderate Schatzki ring in 03/2022. Family still reports recent dysphagia - speech eval this admission without concern for aspiration (3) Abnormality of lung on CXR: -cxr suggests chronic ILD though there is no documented hx of this -O2 sat goal of 90%. Reassess volume status if worsening/increasing O2 requirement. -Consider HRCT of chest as outpatient including PFTs and labs (rheumatoid factor, anticyclic citrullinated peptide, antinuclear antibody, antisynthetase antibodies, creatine kinase, aldolase, Sjgren antibodies and scleroderma antibodies.) (4) History of stroke: - reported hx, details unknown (5) HTN (hypertension): - was on lisinopril in past, no longer taking - previous need for permissive hypertension, although initial event was likely several days ago - blood pressure has been well controlled (6) Depression: - continue home lexapro (7) Herpes: - on BID Valtrex. Patient reports hx of herpes but does not know specifics. (8) GERD (gastroesophageal reflux disease): -cont. home protonix (2) Dysphagia: (3) Abnormality of lung on CXR: (4) History of stroke: (5) HTN (hypertension): (6) Depression: (7) Herpes: (8) GERD (gastroesophageal reflux disease): Total Time Total Time Spent Total Time Spent (In Minutes): 30 minutes seeing the patient, reviewing imaging/labs/consultations, and documentation. Discharge Plan Discharge Items Patient Disposition: Transfer Inpatient Rehab Fac Reason For Visit: ACUTE MONOCULAR VISION LOSS Discharge Diagnosis: Monocular Vision Loss secondary to CVA Activity: Per Instructions section Non-emergency contact: Primary Care Provider Call non-emergency contact if: you have any medication questions and your symptoms worsen Follow-up/Referrals: Martina Alvarez MD [Primary Care Provider] - 01/28/23 11:30 am Diet: Regular Addtl Attending Provider Instructions: 1) Monocular vision loss: 87 year old male w/ PMHx of gerd, depression, HTN, CLL, prostate cancer, dysphagia, intellectual disability, dementia and hx of stroke who presents w/ painless right monocular vision loss since ~01/11/23. - Has hx of stroke. Lost likely etiology of vision changes central retinal artery occlusion. Not tpa candidate given timing. - Considered glaucoma, but air puff tonometry was normal (16 on left and 13 on right) - CTA head/neck neg - Echo with bubble study normal - Neurology consulted and felt etiology likely acute ischemic stroke Plan: Dual antiplatelet therapy, atorvastatin 40mg - could consider [facility] cardiac monitoring at home; discuss with PCP. Risk vs benefits of anticoagulation if he were to be found to have an irregular rhythm -PT/OT; recommending rehab- He is agreeable. Would also recommend driving assessment while he is at rehab. 2) Dysphagia: Chronic. Patient had speech eval 02/2022 and EGD w/ dilation of moderate Schatzki ring in 03/2022. Family still reports recent dysphagia - speech eval this admission without concern for aspiration (3) Abnormality of lung on CXR: -cxr suggests chronic ILD though there is no documented hx of this -O2 sat goal of 90%. Reassess volume status if worsening/increasing O2 requirement. -Consider HRCT of chest as outpatient including PFTs and labs (rheumatoid factor, anticyclic citrullinated peptide, antinuclear antibody, antisynthetase antibodies, creatine kinase, aldolase, Sjgren antibodies and scleroderma antibodies.) (4) History of stroke: - reported hx, details unknown (5) HTN (hypertension): - was on lisinopril in past, no longer taking - previous need for permissive hypertension, although initial event was likely several days ago - blood pressure has been well controlled (6) Depression: - continue home lexapro (7) Herpes: - on BID Valtrex. Patient reports hx of herpes but does not know specifics. (8) GERD (gastroesophageal reflux disease): -cont. home protonix Addtl E Learning Manager Provider Instructions: Neurology Consultation Assessment & Plan: Impression: pt with acute ischemic stroke rt hemisphere that likely stared more than 5 days ago with rt vision disturbance. CTA without LVO. at this point, his stroke is subacute in nature and not much acute intervention is needed. pt already on ASA/plavix therapy. Recommendations * DAPT continue. * Images: TTE with bubble. * no need for permissive HTN as his stroke is now more than 5 days old. * Long-term SBP goal less than 130. * Plenty of hydration including IV fluid. Avoid hypovolemia and hypotension. * Initiate DVT prevention therapy * Avoid hypoglycemia, serum glucose goal during hospitalization: 140-180 * Long-term HgA1c goal less than 7 * Start statin if not on it.Long-term LDL goal of less than 70. * Head of bed up 30 degree if possible. * Stroke education * Smoke cessation education if a smoker. * Telemetry monitoring.Please order MCOT (mobile cardiac outpatient telemetry) orICM (insertable cardiac specialist) if never had penitentiary cardiac monitoring previously. And if found to have atrial flutter or fibrillation, should consider anticoagulation therapy if no contraindication. * Fall precaution * Physical/occupational therapyfollow up with his eye doctor once discharged. otherwise not much add from neurology at this point. please call again if new question. Pending Studies at Discharge: No Stand-Alone Forms: [facility], Medications to Prevent Stroke Skilled Items Patient informed of condition?: Yes DNR: No Discharge Level of Care: Acute rehab Communicable Disease: No Discharge Prognosis: Stable Lines: None Urinary Catheter: No Medications and DC Order Prescriptions: New atorvastatin 40 mg Tablet 40 mg PO QAM 30 Days Qty: 30 0RF clopidogrel 75 mg Tablet 75 mg PO QAM 30 Days Qty: 30 0RF Continued valacyclovir 500 mg tablet 500 mg PO BID Qty: 180 1RF aspirin [Adult Low Dose Aspirin] 81 mg tablet,delayed release (DR/EC) 81 mg PO QAM omega-3 fatty acids 1,000 mg Capsule 1,000 mg PO QAM pantoprazole 40 mg tablet,delayed release (DR/EC) 40 mg PO QAM escitalopram oxalate [Lexapro] 5 mg tablet 5 mg PO HS Discharge Orders: Discharge Order (Routine); Ordered 01/18/23 Ordered By: Dorothy Holt Admission Data Admit Date/Time: 01/17/23 10:26 Attending Provider: John Chaudhari Admit Provider: Arun Villaseñor Primary Care Provider: Martina Alvarez Other Providers: Yahaira Cuellar ; Carmelo Guzman ; [facility] ; [place],[facility] Other Interventions: Discharge Summary Assessment (RN) Last Done: 01/18/23 17:20 Supervising Physician Co-Signing Physician Notes I also saw the patient with the resident physician and confirmed whitt portions of the history and physical examination. Agree with the impression and plan as noted the resident documentation. Upon our morning examination, the patient was supine in bed without complaint. Obviously still with vision deficit, this is unchanged. He reports no new symptoms. Monocular vision loss, secondary to acute ischemic stroke right hemisphere, subacute on upon presentation CTA head/neck negative, echo with bubble study normal Dual antiplatelet therapy/statin Inpatient debilitation; recommend driving evaluation while there Consider long-term cardiac monitoring, although unsure if would entertain anticoagulation an 87-year-old if found to have a dysrhythmia Additional per resident documentation Resident Activity Tracking Resident Involvement: Resident Care Provided Care Provided: Adult Hospital Medicine
[2023-01-18] MEDS ORDERED: STROKE PATIENT DISCHARGE STA (16:57)
== END 2023-01-18 18:18 | DRG 65 ==
LOC: 2W 18:10 → ED 18:10 → SUATTDRO 22:46 → 2W 23:21 → SUATTDRO 01-17 10:26

== ENCOUNTER 2023-03-24 16:03 | Inpatient (IN) ==
[2023-03-24] MEDS ORDERED: diphenhydrAMINE 50 MG/ML VIAL IV STA (16:12)
[2023-03-24] MEDS ORDERED: METOCLOPRAMIDE HCL INJ 5 MG/ML 2 ML VIAL IV STA (16:12)
[2023-03-24] MEDS ORDERED: SODIUM CHLORIDE 0.9% 500 ML IV STA (16:12)
--- NOTE | 2023-03-24 16:15 | Emergency Department Note ---
Impression & Plan Dementia ADMIT ED Provider Note HPI: The patient is an 87-year-old gentleman with history of dementia, previous CVA, on aspirin and clopidogrel, presents emergency department with chief complaint of right-sided headache and right-sided eye pain. Patient states that his pain has been occurring intermittently over the past several months. He states that this episode of pain to started this morning. States it was slightly worse than it usually is and therefore he came to the ED to be assessed. On arrival here to the ED the patient does not have any obvious focal motor deficits, he does have some residual blindness in his right eye from his previous stroke. Patient is otherwise alert and hemodynamically stable on arrival. ROS: - Per HPI *Outpatient medications and allergy history reviewed. *Pertinent external medical records reviewed. 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 Medical Decision Making: Patient presented to the emergency department with some acute on chronic pain, states he has had some pain in his right eye, states he is also getting right- sided headaches and some right-sided arm pain. On arrival here to the ED the patient is in no acute distress. He is alert. He is a poor historian and does have history of dementia. Also had recent CVA. Patient does tell me that he has had the symptoms for several months, they seem to coincide with when he had a stroke. 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 Intraocular pressures were obtained and pressure remains high in the right eye at 59 mm Hg, left eye is 22mm HG. this is similar to previous levels that were obtained on March 14 when the patient had right eye pressure of 55. Patient's stepdaughter later arrived at the bedside, states that he has since followed up with his fitness management director and was placed on ophthalmic drops for his elevated pressures. Patient does li ve alone and its unclear whether or not he is actually been taking these drops. I think this might be playing a role in his symptoms. He is already blind in the right eye secondary to his history of stroke. He was ordered some topical timolol ophthalmic drops for his elevated pressure. CT imaging of the head is negative, his symptoms are acute on chronic, his lab work is otherwise largely unremarkable without critical findings, EKG shows sinus rhythm, troponin is negative, screening COVID test is also negative. Patient stepdaughter at the bedside is concerned that the patient should not be living alone, she states she can no longer help him as much as she was once able to because her now also has health issues. She states the patient is able to do certain things for himself at home although there are safety issues, such as leaving the stove on after he cooks. She is concerned that he is not safe to be at home. She is requesting admission for placement. Patient expresses an agreement when this is discussed. I did contact case management, there is no potential for placement directly to a nursing facility tonight and therefore the case was [facility]. Patient was placed for admission in stable condition. Consultants: -Case management -Hospitalist service, Dr. Naranjo Disposition discussion held by myself with: Patient and step daughter Diagnosis: 1. Headache, acute on chronic, not intractable 2. Dementia with difficulty with activities of daily living 3. Elevated intraocular pressure, chronic, right eye 4. 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 Disposition: Admission Tony Farrell DO Emergency Medicine Past Med/Surg History Medical History Acute respiratory failure with hypoxia Back pain CLL (chronic lymphocytic leukemia) PT UNSURE OF DETAILS Depression Depression GERD (gastroesophageal reflux disease) History of COVID-19 08/2020>HOSPITALIZED FOR PNEUMONIA *RESOLVED History of skin cancer Hypertension WAS ON LISINOPRIL>DAUGHTER STATES NO LONGER TAKING Intellectual disability Leg cramps Prostate cancer Stroke 5 YEARS AGO?>NO CURRENT PROBLEMS FROM EVENT Surgical History H/O umbilical hernia repair History of colonoscopy History of esophagogastroduodenoscopy (EGD) WITH ESOPHAGEAL STRETCHING History of prostate surgery UNSURE OF DETAILS History of tooth extraction Family History Father , "old age" No problems noted. Mother , "old age" No problems noted. Other No family history of adverse response to anesthesia Denies family history of Ovarian cancer Prostate cancer Myocardial infarction Breast cancer Colorectal cancer Social History Smoking Status: Unknown if ever smoked Tobacco Type: Cigarettes and Cigars Age Started Using Tobacco: 38; Age Quit Using Tobacco: 48; Second Hand Exposure: No; Do You Dip or Chew Tobacco: No; Hx Alcohol Use: No Hx Substance Use: No Preferred Language: Kazakh Communication Ability: Effective Communication Ability Comment: AFOG[place]K Hearing Ability: Hard of Hearing Chiller Hand Required: No Beliefs That Will Affect Care: None marital status: / marital status details: 2nd marriage; 1 step-daughter Current Living Situation: Alone Current Living Situation Comment: lives in [place] 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 How many Children do You have: 0 Feels Safe at Home: Yes Childhood Exposure to Second-Hand Smoke: No Diet: regular caffeine: No during the past year weight has: remained stable Dental Care, Regularly: Yes Physical Activity Frequency: Daily Physical Activity Frequency Comment: Yard work and house cleaning, very active Seatbelt Use: always Sunscreen Use: No Do you think of yourself as: straight/heterosexual Sexual Activity: has been sexually active, but not for at least 12 months Gender Identity: Male Assistive Devices: Cane Allergies Allergies Allergy/AdvReac Type Severity Reaction Status Date / Time No Known Allergies Allergy Mild Verified 02/28/23 19:43 Home Meds Home Medications Medication Instructions Recorded Confirmed aspirin 81 mg tablet,delayed 81 mg PO QAM 04/04/22 02/28/23 release (Adult Low Dose Aspirin) escitalopram oxalate 5 mg tablet 5 mg PO HS 01/15/23 02/28/23 (Lexapro) Previous Rx's Medication Instructions Recorded valacyclovir 500 mg tablet 500 mg PO BID #180 tabs 12/19/22 atorvastatin 40 mg tablet 40 mg PO QAM 30 days #90 tabs 02/12/23 clopidogrel 75 mg tablet 75 mg PO QAM 30 days #90 tabs 02/12/23 lisinopril 10 mg tablet 10 mg PO DAILY #90 tabs 02/12/23 pantoprazole 40 mg tablet,delayed See Rx Instructions .Route 03/18/23 release .COMPLEX #90 tabs Results & Data (ED) Vital Signs Vital Signs - 24 hr 03/24/23 16:13 03/24/23 16:10 03/24/23 16:35 Temperature 36.6 C Temperature Source Oral Pulse Rate 81 84 Pulse Rate [Right Finger] 73 Respiratory Rate 19 16 Respiratory Effort / Characteristics Non-Labored Spontaneous Respiratory Depth Normal Blood Pressure 124/86 Blood Pressure [Right Arm] 149/71 H Blood Pressure Mean 98 Blood Pressure Mean [Right Arm] 97 Pulse Oximetry 95 90 Oxygen Delivery Method Room Air Room Air Sepsis Recent Fever Within 48 Hours No Sepsis New/Unexplained Change in Mental Status N/A Sepsis Action Taken by Nursing No Action Required 03/24/23 17:32 03/24/23 18:13 Temperature Temperature Source Pulse Rate Pulse Rate [Right Finger] 70 62 Respiratory Rate 16 16 Respiratory Effort / Characteristics Respiratory Depth Blood Pressure Blood Pressure [Right Arm] 110/69 99/58 L Blood Pressure Mean Blood Pressure Mean [Right Arm] 82 71 Pulse Oximetry 90 94 Oxygen Delivery Method Room Air Room Air Sepsis Recent Fever Within 48 Hours Sepsis New/Unexplained Change in Mental Status Sepsis Action Taken by Nursing Laboratory Data 03/24/23 16:16 03/24/23 16:22 Lab Results 03/24/23 03/24/23 03/24/23 Range/Units 16:16 16:16 16:16 WBC 10.11 (4.8-10.8) K/ul RBC 4.12 L (4.70-6.10) M/uL Hgb 13.4 L (14.0-18.0) g/dl Hct 38.9 L (42.0-52.0) % MCV 94.4 (80.0-100.0) fL MCH 32.5 (25.0-34.0) pg MCHC 34.4 (32.0-36.0) g/dL RDW Std Deviation 47.0 H (36.4-46.3) fL RDW Coeff of Geovany 13.6 (11.5-14.5) % Plt Count 221 (130-400) K/uL MPV 9.7 (9.4-12.4) fL Immature Gran % (Auto) 0.3 % Neut % (Auto) 40.5 % Lymph % (Auto) 53.1 % [place] % (Auto) 5.4 % Eos % (Auto) 0.4 % Baso % (Auto) 0.3 % Neut # (Auto) 4.09 (1.40-6.50) K/uL Lymph # (Auto) 5.37 H (1.2-3.4) K/uL [place] # (Auto) 0.55 (0.11-0.59) K/uL Eos # (Auto) 0.04 (0-0.50) K/uL Baso # (Auto) 0.03 (0-0.2) K/uL Immature Gran # (Auto) 0.03 (0.01-0.20) K/uL Absolute Nucleated RBC 0.02 (0-0.12) K/uL Nucleated RBC % (auto) 0.2 % Polychromasia 1+ Ovalocytes 1+ PT 11.5 (9.0-12.0) Seconds INR 1.1 (0.9-1.1) Sodium (136-145) mmol/L Potassium (3.5-5.1) mmol/L Chloride (98-107) mmol/L Carbon Dioxide (21-32) mmol/L Anion Gap (3-11) BUN (6-23) mg/dl Creatinine (0.6-1.4) mg/dl Est Cr Clr Drug Dosing ml/min Est GFR ( Amer) ml/min Est GFR (Non-Af Amer) ml/min BUN/Creatinine Ratio (10-20) Glucose (70-99(Fasting)) mg/dl Calcium (8.6-10.3) mg/dl Total Bilirubin (0.2-1.0) mg/dl AST (13-39) U/L ALT (7-52) U/L Alkaline Phosphatase (34-104) U/L Troponin I High Sens (0-20) pg/ml Total Protein (6.0-8.3) gm/dl Albumin (3.4-5.0) gm/dl Globulin (2.5-4.0) gm/dl Albumin/Globulin Ratio (0.9-2) Lipase (11-82) U/L SARS-CoV-2, RNA, NAAT NEGATIVE (NEGATIVE) 03/24/23 Range/Units 16:22 WBC (4.8-10.8) K/ul RBC (4.70-6.10) M/uL Hgb (14.0-18.0) g/dl Hct (42.0-52.0) % MCV (80.0-100.0) fL MCH (25.0-34.0) pg MCHC (32.0-36.0) g/dL RDW Std Deviation (36.4-46.3) fL RDW Coeff of Geovany (11.5-14.5) % Plt Count (130-400) K/uL MPV (9.4-12.4) fL Immature Gran % (Auto) % Neut % (Auto) % Lymph % (Auto) % [place] % (Auto) % Eos % (Auto) % Baso % (Auto) % Neut # (Auto) (1.40-6.50) K/uL Lymph # (Auto) (1.2-3.4) K/uL [place] # (Auto) (0.11-0.59) K/uL Eos # (Auto) (0-0.50) K/uL Baso # (Auto) (0-0.2) K/uL Immature Gran # (Auto) (0.01-0.20) K/uL Absolute Nucleated RBC (0-0.12) K/uL Nucleated RBC % (auto) % Polychromasia Ovalocytes PT (9.0-12.0) Seconds INR (0.9-1.1) Sodium 139 (136-145) mmol/L Potassium 4.0 (3.5-5.1) mmol/L Chloride 103 (98-107) mmol/L Carbon Dioxide 30 (21-32) mmol/L Anion Gap 6 (3-11) BUN 16 (6-23) mg/dl Creatinine 0.88 (0.6-1.4) mg/dl Est Cr Clr Drug Dosing 48.7 ml/min Est GFR ( Amer) 88.3 ml/min Est GFR (Non-Af Amer) 76.2 ml/min BUN/Creatinine Ratio 18.2 (10-20) Glucose 162 H (70-99(Fasting)) mg/dl Calcium 9.4 (8.6-10.3) mg/dl Total Bilirubin 0.9 (0.2-1.0) mg/dl AST 16 (13-39) U/L ALT 14 (7-52) U/L Alkaline Phosphatase 55 (34-104) U/L Troponin I High Sens 7.3 (0-20) pg/ml Total Protein 7.0 (6.0-8.3) gm/dl Albumin 4.3 (3.4-5.0) gm/dl Globulin 2.7 (2.5-4.0) gm/dl Albumin/Globulin Ratio 1.6 (0.9-2) Lipase 24 (11-82) U/L SARS-CoV-2, RNA, NAAT (NEGATIVE) Administered Medications Discontinued Medications Diphenhydramine HCl (Diphenhydramine 50 Mg/Ml Vial) 25 mg IV NOW STA Stop: 03/24/23 16:13 Last Admin: 03/24/23 16:27 Dose: 25 mg Documented By: ASW Sodium Chloride (Nss) 500 mls @ 999 mls/hr IV .Q31M STA Stop: 03/24/23 16:42 Last Infusion: 03/24/23 16:54 Dose: 0 mls/hr Documented By: Admin: 03/24/23 16:27 Dose: 999 mls/hr Documented By: ASW Metoclopramide HCl (Metoclopramide Hcl Inj 5 Mg/Ml 2 Ml Vial) 10 mg IV NOW STA Stop: 03/24/23 16:13 Last Admin: 03/24/23 16:27 Dose: 10 mg Documented By: ASW Timolol Maleate (Timolol Gfs 0.5% Oph Soln 74 Drops/5 Ml Btl) 2 drops OP ONCE ONE Stop: 03/24/23 16:53 Last Admin: 03/24/23 16:57 Dose: Not Given Documented By: ASW Timolol Maleate (Timolol Maleate 0.5% Op Soln 5 Ml Btl) 2 drops OP ONCE ONE Stop: 03/24/23 16:57 Last Admin: 03/24/23 17:28 Dose: 2 drops Documented By: ASW Imaging Data Radiologist's Impression: Chest X-Ray 03/24/23 16:13 XR chest 1V portable HISTORY: Chest pain, nonspecific COMPARISON: Chest 02/28/2023. FINDINGS: No pneumothorax. No pleural effusions. The heart is mildly enlarged. There are calcifications within the aortic knob. There are low lung volumes. Interstitial thickening and a hazy appearance to the left lower lobe. This may represent asymmetric congestive change or a developing pneumonitis. IMPRESSION: Interstitial thickening and a hazy appearance to the left lower lobe. This may represent asymmetric congestive change or a developing pneumonitis. ACT 112: Negative or not required by law. Electronically signed by: Kin Lozano M.D. 03/24/2023 5:[address] 03/24/23 16:[address] DOSE: 537.48 mGy.cm HISTORY: Right-sided headache. TECHNIQUE: Multiaxial CT images of the head were performed without the use of intravenous contrast. Automated exposure control was utilized for this study. A dose lowering technique was utilized adhering to the principles of ALARA. Comparison: Head CT 02/28/2023. Findings: The paranasal sinuses and mastoid air cells are clear. The calvarium and skull base are intact. There is no mass, hematoma, midline shift, acute infarct. White matter hypodensity is nonspecific but suggestive of microvascular ischemic change. The ventricles and sulci demonstrate mild age-related involutional changes. Impression: No significant change compared to the prior study. No acute intracranial abn ormality. ACT 112: Negative or not required by law. Electronically signed by: Kin Lozano M.D. 03/24/2023 4:59 PM Discharge Plan Visit Data Chief Complaint: Head Pain Stated Complaint: HEAD PAIN ED Provider: Tony Farrell Discharge Problem: Dementia Forms Stand Alone Forms: [employer] Prescriptions Prescriptions: No Action valacyclovir 500 mg tablet 500 mg PO BID Qty: 180 1RF atorvastatin 40 mg tablet 40 mg PO QAM 30 Days Qty: 90 3RF clopidogrel 75 mg tablet 75 mg PO QAM 30 Days Qty: 90 3RF lisinopril 10 mg tablet 10 mg PO DAILY Qty: 90 3RF pantoprazole 40 mg tablet,delayed release (DR/EC) See Rx Instructions .ROUTE .COMPLEX Qty: 90 3RF Dose Instruction: TAKE ONE TABLET BY MOUTH EVERY DAY Rx Instructions: TAKE ONE TABLET BY MOUTH EVERY DAY aspirin [Adult Low Dose Aspirin] 81 mg tablet,delayed release (DR/EC) 81 mg PO QAM escitalopram oxalate [Lexapro] 5 mg tablet 5 mg PO HS Referrals Referrals: Martina Alvarez MD [Primary Care Provider] -
[2023-03-24 16:45] LABS: Hematocrit (blood only) 38.9 % (42.0-52.0); Hemoglobin 13.4 g/dl (14.0-18.0); Mean Corpuscular Hemoglobin 32.5 pg (25.0-34.0); Mean Corpuscular Hgb Conc 34.4 g/dL (32.0-36.0); Mean Corpuscular Volume 94.4 fL (80.0-100.0); Mean Platelet Volume 9.7 fL (9.4-12.4); Nucleated RBC # (auto) 0.02 K/uL (0-0.12); Nucleated RBC % (auto) 0.2 %; Platelet Count 221 K/uL (130-400); RDW Coefficient of Variation 13.6 % (11.5-14.5); Red Blood Count 4.12 M/uL (4.70-6.10); White Blood Count 10.11 K/ul (4.8-10.8)
[2023-03-24] MEDS ORDERED: TIMOLOL GFS 0.5% OPH SOLN 74 DROPS/5 ML BTL OP ONE (16:52)
[2023-03-24] MEDS ORDERED: TIMOLOL MALEATE 0.5% OP SOLN 5 ML BTL OP ONE (16:56)
--- NOTE | 2023-03-24 17:01 | CT Scan Report ---
HEAD CT NONCONTRAST CT DOSE: 537.48 mGy.cm HISTORY: Right-sided headache. TECHNIQUE: Multiaxial CT images of the head were performed without the use of intravenous contrast. A utomated exposure control was utilized for this study. A dose lowering technique was utilized adheri ng to the principles of ALARA. Comparison: Head CT 02/28/2023. Findings: The paranasal sinuses and mastoid air cells are clear. The calvarium and skull base are int act. There is no mass, hematoma, midline shift, acute infarct. White matter hypodensity is nonspecifi c but suggestive of microvascular ischemic change. The ventricles and sulci demonstrate mild age-rela jasen involutional changes. Impression: No significant change compared to the prior study. No acute intracranial abnormality. ACT 112: Negative or not required by law. Electronically signed by: Kin Lozano M.D. 03/24/2023 4:59 PM
[2023-03-24 17:03] LABS: Albumin Globulin Ratio 1.6 (0.9-2); Albumin Level 4.3 gm/dl (3.4-5.0); BUN Creatinine Ratio 18.2 (10-20); Bilirubin,Total 0.9 mg/dl (0.2-1.0); Calcium 9.4 mg/dl (8.6-10.3); Creatinine Clr Calc Pharmacy 48.7 ml/min; Est GFR (African American) 88.3 ml/min; Est GFR (Non-African American) 76.2 ml/min; Globulin 2.7 gm/dl (2.5-4.0)
--- NOTE | 2023-03-24 17:04 | XRay Report ---
XR chest 1V portable HISTORY: Chest pain, nonspecific COMPARISON: Chest 02/28/2023. FINDINGS: No pneumothorax. No pleural effusions. The heart is mildly enlarged. There are calcificatio ns within the aortic knob. There are low lung volumes. Interstitial thickening and a hazy appearance to the left lower lobe. This may represent asymmetric congestive change or a developing pneumonitis. IMPRESSION: Interstitial thickening and a hazy appearance to the left lower lobe. This may represent asymmetric c ongestive change or a developing pneumonitis. ACT 112: Negative or not required by law. Electronically signed by: Kin Lzoano M.D. 03/24/2023 5:03 PM
[2023-03-24 17:10] LABS: Troponin I High Sensitivity 7.3 pg/ml (0-20)
[2023-03-24 17:11] LABS: INR 1.1 (0.9-1.1); Prothrombin Time 11.5 Seconds (9.0-12.0)
[2023-03-24 17:13] LABS: Basophils # (auto) 0.03 K/uL (0-0.2); Basophils % (auto) 0.3 %; Eosinophils # (auto) 0.04 K/uL (0-0.50); Eosinophils % (auto) 0.4 %; Immature Granulocytes # (auto) 0.03 K/uL (0.01-0.20); Immature Granulocytes % (auto) 0.3 %; Lymphocytes # (auto) 5.37 K/uL (1.2-3.4); Lymphocytes % (auto) 53.1 %; Monocytes # (auto) 0.55 K/uL (0.11-0.59); Monocytes % (auto) 5.4 %; Neutrophils # (auto) 4.09 K/uL (1.40-6.50); Neutrophils % (auto) 40.5 %; Ovalocytes 1+; Polychromasia 1+
--- NOTE | 2023-03-24 17:26 | History & Physical Report ---
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: Plan: - Admit patient for observation and placement - PT/OT - CM to evaluate in AM and discuss placement options with patient and his step dtr who is ELGIN Barraza - Restart patient's eye gtts as rx by ophthalmology Patient to take his home eye drops -- Pednisolone Acetate 1% 1gtt OD -- Simbrinza 1%/0.2% 1 gtt BID OD Zofran prn Continue Plavix, ASA, Lisinopril, Lexapro, Pantoprazole and Atorvastatin (2) Monocular vision loss: Plan: as above (3) Blind painful right eye: Plan: as above (4) Dementia: Plan: - for placement (5) Hyperlipidemia: Plan: chronic on statin (6) HTN (hypertension): Plan: chronic and stable continue lisinopril (7) Depression: Plan: chronic and stable continue Lexapro History of Present Illness Chief Complaint: right sided headache Primary Care Provider: Martina Alvarez MD Tom Monteiro is an 87 year old male with a past medical history of dementia, recent ischemic stroke with central retinal artery 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 Patient presented to the ER today with complaints of right eye pain and headache x 1 day and he is accompanied today by his step. Patient is to be taking prednisone and Simbrinza eye drops, but he has not been taking due to dementia and also due to not being able to use the drops himself. He lives alone in his trailer and his step daughter lives 30 minutes away and stops in to check on him. She states that her had a recent MS and she is unable to help care for patient. She would like placement for him. She tells me that when he was discharged previously she was not ready to have him placed but now she realizes he is unable to care for himself. Per the step dtr patient is also burning things on the stove because he forgets about them. He states he is having an intermittent frontal headache and also right eye pains. Patient had his eye drops instilled in his eye here in the ER and he states his headache and eye pain are improved currently. His only complaint is some mild right elbow pain secondary to a lesion where he had recent skin cancer removed. He denies any chest pain, SOB, cough, fevers, chills, abdominal pain or nausea or vomiting. Patient denies any flashes of light or pain in left eye. Patient denies any new sxs to his right eye. Patient was evaluated by Dr Mijares (retinal specialist/opth) 03/18/23. He took some tylenol at home for the headache and he states this helped also. Patient was evaluated in the ER, had CT head with no significant change compared to the prior study of 02/28/23. Per the ER physician this is an admisssion for placement due to his dementia and family no longer able to care for his and patient not safe or able to care for himself. CBC, CMP, troponin, lipase and PT.INR all stable. Last ER evaluation from 2 weeks ago ESR and CRP were normal - will repeat. CXR with Interstitial thickening and a hazy appearance to the left lower lobe. This may represent asymmetric congestive change or a developing pneumonitis. Will check a procal Patient denies any fevers or cough or congestion and only fine crackles in bases bilaterally. 94% on RA Allergies Allergy/AdvReac Type Severity Reaction Status Date / Time No Known Allergies Allergy Mild Verified 03/24/23 18:45 Home Medications Medication Instructions Recorded Confirmed Type aspirin 81 mg tablet,delayed 81 mg PO QAM 04/04/22 03/24/23 History release (Adult Low Dose Aspirin) valacyclovir 500 mg tablet 500 mg PO BID #180 tabs 12/19/22 03/24/23 Rx escitalopram oxalate 5 mg tablet 5 mg PO HS 01/15/23 03/24/23 History (Lexapro) atorvastatin 40 mg tablet 40 mg PO QAM 30 days #90 tabs 02/12/23 03/24/23 Rx clopidogrel 75 mg tablet 75 mg PO QAM 30 days #90 tabs 02/12/23 03/24/23 Rx lisinopril 10 mg tablet 10 mg PO DAILY #90 tabs 02/12/23 03/24/23 Rx pantoprazole 40 mg tablet,delayed 40 mg PO DAILY 03/24/23 03/24/23 History release Past Med/Surg History Medical History (Updated 03/24/23 @ 18:41 by Shanae Goldman PA-C) Acute respiratory failure with hypoxia Back pain CLL (chronic lymphocytic leukemia) PT UNSURE OF DETAILS Depression Depression GERD (gastroesophageal reflux disease) History of COVID-19 08/2020>HOSPITALIZED FOR PNEUMONIA *RESOLVED History of skin cancer HTN (hypertension) Hypertension WAS ON LISINOPRIL>DAUGHTER STATES NO LONGER TAKING Intellectual disability Leg cramps Prostate cancer Stroke 5 YEARS AGO?>NO CURRENT PROBLEMS FROM EVENT Surgical History H/O umbilical hernia repair History of colonoscopy History of esophagogastroduodenoscopy (EGD) WITH ESOPHAGEAL STRETCHING History of prostate surgery UNSURE OF DETAILS History of tooth extraction Family History Father , "old age" No problems noted. Mother , "old age" No problems noted. Other No family history of adverse response to anesthesia Denies family history of Ovarian cancer Prostate cancer Myocardial infarction Breast cancer Colorectal cancer Social History Smoking Status: Former smoker Tobacco Type: Cigarettes and Cigars Age Started Using Tobacco: 38; Age Quit Using Tobacco: 48; Second Hand Exposure: No; Do You Dip or Chew Tobacco: No; Hx Alcohol Use: No Hx Substance Use: No Preferred Language: Bolivian Communication Ability: Effective Communication Ability Comment: [place] Hearing Ability: Hard of Hearing Supervisor Stripping Required: No Beliefs That Will Affect Care: None marital status: / marital status details: 2nd marriage; 1 step-daughter Current Living Situation: Alone Current Living Situation Comment: pt lives in a trailer 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 How many Children do You have: 0 Other Information That Helps Us Care for You: No Feels Safe at Home: Yes Safety Concerns: Feels Safe At This Time Childhood Exposure to Second-Hand Smoke: No Diet: regular caffeine: No during the past year weight has: remained stable Dental Care, Regularly: Yes Physical Activity Frequency: Daily Physical Activity Frequency Comment: Yard work and house cleaning, very active Seatbelt Use: always Sunscreen Use: No Do you think of yourself as: straight/heterosexual Sexual Activity: has been sexually active, but not for at least 12 months Gender Identity: Male Assistive Devices: Cane Review of Systems Review of Systems: all other ROS negative unless stated above Constitutional: + fatigue; no fever and no chills Eyes: Right eye vision loss secondary to 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 - following with ophthalmology Ear, Nose, Mouth, Throat: + nasal congestion and + post nasal drip; no ear pain, no tinnitus, no dizziness, no bleeding gums, no sore throat and no dysphagia Respiratory: no cough, no chest congestion, no dyspnea and no hemoptysis Cardiovascular: no chest pain, no dyspnea, no lightheadedness and no calf pain Gastrointestinal: no abdominal pain, no nausea, no vomiting, no change in bowel habits and no diarrhea/loose stools Integumentary: Skin lesion removal right elbow, healing 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 Neurologic: + unsteadiness, + generalized weakness and + headache(s); no falls, no localized weakness and no abnormal speech Physical Exam Constitutional: WD/WN, vitals as above Eyes: Right eye conjunctival irritation and redness, no discharge PERRLA ENMT: oropharynx pink and moist, no PND Neck: trachea midline, no thyromegaly Respiratory: able to speak in complete sentences; no respiratory distress and no cough Auscultation: + crackles fine crackles at bases Cardiovascular: Rate/Rhythm: regular rate and regular rhythm Heart Sounds: normal S1 and normal S2 Gastrointestinal (Abdomen): normal bowel sounds, soft, nontender, no hepatosplenomegaly Neurologic: normal touch/pain/proprioception, moves all extremities and awake Motor/Sensory: no sensory deficit Psychiatric: Orientation: alert, oriented to person and oriented to place Results & Data Results & Data Vital Signs (Past 12 Hours) Vital Signs Temp Pulse Pulse Resp BP BP Pulse Ox 03/24/23 16:35 73 16 149/71 H 90 03/24/23 16:10 36.6 C 84 19 124/86 95 03/24/23 16:13 81 O2 Del Method 03/24/23 16:35 Room Air 03/24/23 16:10 Room Air 03/24/23 16:13 Laboratory Results Abnormal lab results 03/24/23 03/24/23 Range/Units 16:16 16:22 RBC 4.12 L (4.70-6.10) M/uL Hgb 13.4 L (14.0-18.0) g/dl Hct 38.9 L (42.0-52.0) % RDW Std Deviation 47.0 H (36.4-46.3) fL Lymph # (Auto) 5.37 H (1.2-3.4) K/uL Glucose 162 H (70-99(Fasting)) mg/dl Diagnostic Findings Chest X-Ray 03/24/23 16:13 XR chest 1V portable HISTORY: Chest pain, nonspecific COMPARISON: Chest 02/28/2023. FINDINGS: No pneumothorax. No pleural effusions. The heart is mildly enlarged. There are calcifications within the aortic knob. There are low lung volumes. Interstitial thickening and a hazy appearance to the left lower lobe. This may represent asymmetric congestive change or a developing pneumonitis. IMPRESSION: Interstitial thickening and a hazy appearance to the left lower lobe. This may represent asymmetric congestive change or a developing pneumonitis. ACT 112: Negative or not required by law. Electronically signed by: Kin Lozano M.D. 03/24/2023 5:[address] 03/24/23 16:[address] DOSE: 537.48 mGy.cm HISTORY: Right-sided headache. TECHNIQUE: Multiaxial CT images of the head were performed without the use of intravenous contrast. Automated exposure control was utilized for this study. A dose lowering technique was utilized adhering to the principles of ALARA. Comparison: Head CT 02/28/2023. Findings: The paranasal sinuses and mastoid air cells are clear. The calvarium and skull base are intact. There is no mass, hematoma, midline shift, acute infarct. White matter hypodensity is nonspecific but suggestive of microvascular ischemic change. The ventricles and sulci demonstrate mild age-related involutional changes. Impression: No significant change compared to the prior study. No acute intracranial abnormality. ACT 112: Negative or not required by law. Electronically signed by: Kin Lozano M.D. 03/24/2023 4:59 PM Supervising Physician Co-Signing Physician Notes Patient seen and examined, chart reviewed, case discussed with Liz Goldman PA-C and I agree with the assessment and plan as above except as otherwise noted Labs and images reviewed Mr. Basilio is an 87-year-old male with past medical history of dementia, ischemic stroke, retinal artery occlusion on aspirin and Plavix who presented with right eye pain and headache. History is limited by dementia. Patient has been struggling to care for himself at home and is no longer able to his form his IADLs. Family does request placement. Patient seen at bedside following transfer, reports he continues to have some headache otherwise has no complaints. Patient is moving all extremities equally while in bed, heart rate is regular, lungs has bibasilar crackles but are otherwise clear. Right eyes with conjunctival injection. Right eye is with chronic vision loss due to artery occlusion, this has not changed. 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
[2023-03-24] MEDS ORDERED: ACETAMINOPHEN 325 MG TAB PO PRN (21:22)
[2023-03-24] MEDS ORDERED: ONDANSETRON INJ 2 MG/ML 2 ML VIAL IV PRN (21:22)
[2023-03-24] MEDS: prednisoLONE acetate 1% OP SUSP 5 ML BTL OPR SCH (22:14)
[2023-03-24] MEDS: PANTOprazole 40 MG TAB PO SCH (22:14)
[2023-03-25 07:40] LABS: Hematocrit (blood only) 36.3 % (42.0-52.0); Hemoglobin 12.7 g/dl (14.0-18.0); Mean Corpuscular Hemoglobin 32.6 pg (25.0-34.0); Mean Corpuscular Volume 93.1 fL (80.0-100.0); Mean Platelet Volume 10.2 fL (9.4-12.4); Nucleated RBC # (auto) 0.02 K/uL (0-0.12); Nucleated RBC % (auto) 0.2 %; Platelet Count 213 K/uL (130-400); RDW Coefficient of Variation 13.5 % (11.5-14.5); RDW Standard Deviation 45.6 fL (36.4-46.3); White Blood Count 11.24 K/ul (4.8-10.8)
[2023-03-25 08:08] LABS: Anion Gap 6 (3-11); BUN Creatinine Ratio 19.8 (10-20); Blood Urea Nitrogen 16 mg/dl (6-23); C Reactive Protein < 0.50 mg/dl (0-0.5); Calcium 8.8 mg/dl (8.6-10.3); Carbon Dioxide 30 mmol/L (21-32); Chloride 106 mmol/L (98-107); Creatinine Clr Calc Pharmacy 59.4 ml/min; Est GFR (African American) 91.3 ml/min; Est GFR (Non-African American) 78.8 ml/min; Glucose 88 mg/dl (70-99(Fasting)); Potassium 4.1 mmol/L (3.5-5.1); Sodium 142 mmol/L (136-145)
[2023-03-25] MEDS: ASPIRIN 81 MG ECTAB PO SCH (09:20)
[2023-03-25] MEDS: ATORVASTATIN 40 MG TAB PO SCH (09:21)
[2023-03-25] MEDS: CLOPIDOGREL BISULFATE 75 MG TAB PO SCH (09:21)
[2023-03-25] MEDS: PANTOprazole 40 MG TAB PO SCH (09:22)
[2023-03-25] MEDS: lisinopril 10 MG TAB PO SCH (09:22)
[2023-03-25] MEDS: prednisoLONE acetate 1% OP SUSP 5 ML BTL OPR SCH ×4 (09:23→20:08)
--- NOTE | 2023-03-25 14:55 | Hospitalist Progress Note ---
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: Plan: Chronic/stable - Make patient full admission - PT/OT consulted to assist in d/c - MRI confirmed several small acute infarcts within the R cerebral hemisphere in Dec 2022 - No other obvious neurologic deficits other than his now blind eye in R eye - Continue ASA, Plavix, Atorvastatin - CM to assist in dc planning as family are interested in placement for adequate safety (2) Blind painful right eye: Plan: Acute/unstable - Blindness since Dec 2022 d/t retinal artery occlusion - IOP were normal at his 03/18 retina specialist visit and his rhopressa was stopped - Pain could be secondary to spontaneous hyphema - Discussed with ophthalmology organization development consultant who advised resuming his Rhopressa and increasing his Pred acetate drops to QID - Continue Simbrinza 1%/0.2% 1 gtt BID OD - Daughter, Zakiya, is going to bring in drops from home since they are nonformulary (3) Dementia: Plan: Dementia/depression Chronic/stable - Oriented x3 - Takes Lexapro but no dementia medications - CM to assist in dc planning ?placement @ [facility] (4) HTN (hypertension): Plan: Chronic and stable - BP well controlled, continue lisinopril Plan DEREKA Zakiya Barraza . Provided update to patient's daughter via phone this morning. CM to follow up with her to discuss discharge options. Plan is otherwise as outlined above. Make full admission. Will d/w Dr. Gibbons. Admission and Anticipated Discharge Date Admission Date: March 24, 2023 Subjective Patient was seen on rounds this morning. He continues to endorse right eye pain, redness. He is blind in his right eye since his central retinal artery occlusion since Dec 2022. Followed with a retina specialist on 03/18, his pressure medications for his glaucoma were stopped. He is for placement due to inability to care for self or for any family that can provide care for him. Physical Exam Physical Exam: GENERAL: 87 yo well-developed, well-nourished elderly WM. AAOx3. NAD. EYES: Right eye with conjunctival injection and watery discharge. Very small hyphema observed in right eye. Pupil is nonreactive. LUNGS: Clear to auscultation bilaterally. No W/R/R. CARDIOVASCULAR: Regular rate and rhythm. 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
[2023-03-25] MEDS ORDERED: BRINZOLAMIDE/BRIMONIDINE TART 119 DROPS/8 ML BTL OPR SCH (21:00)
[2023-03-25] MEDS ORDERED: ESCITALOPRAM OXALATE 10 MG TAB PO SCH (21:00)
[2023-03-25 23:47] LABS: RBC Morphology Unremarkable
[2023-03-26] MEDS: ATORVASTATIN 40 MG TAB PO SCH (08:20)
[2023-03-26] MEDS: lisinopril 10 MG TAB PO SCH (08:20)
[2023-03-26] MEDS: PANTOprazole 40 MG TAB PO SCH (08:20)
[2023-03-26] MEDS: ASPIRIN 81 MG ECTAB PO SCH (08:20)
[2023-03-26] MEDS: CLOPIDOGREL BISULFATE 75 MG TAB PO SCH (08:20)
[2023-03-26] MEDS: prednisoLONE acetate 1% OP SUSP 5 ML BTL OPR SCH ×2 (08:20→13:46)
--- NOTE | 2023-03-26 10:40 | Electrocardiogram Report ---
Test Reason : Blood Pressure : / mmHG Vent. Rate : 080 BPM Atrial Rate : 000 BPM P-R Int : 000 ms QRS Dur : 088 ms QT Int : 402 ms P-R-T Axes : 000 -26 057 degrees QTc Int : 463 ms Poor data quality, interpretation may be adversely affected Sinus rhythm Minimal voltage criteria for LVH, may be normal variant ( R in aVL ) Abnormal ECG When compared with ECG of 28-FEB-2023 17:15, No significant change Confirmed by Gerson Kelsey ([id number]) on 03/26/2023 10:40:32 AM Referred By: Confirmed By:Gerson Kelsey
--- NOTE | 2023-03-26 14:23 | Discharge Summary ---
Date of Service March 26, 2023 Admission HPI Per Admitting Provider Tom Monteiro is an 87 year old male with a past medical history of dementia, recent ischemic stroke with central retinal artery 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 Patient presented to the ER today with complaints of right eye pain and headache x 1 day and he is accompanied today by his step. Patient is to be taking prednisone and Simbrinza eye drops, but he has not been taking due to dementia and also due to not being able to use the drops himself. He lives alone in his trailer and his step daughter lives 30 minutes away and stops in to check on him. She states that her had a recent [place] and she is unable to help care for patient. She would like placement for him. She tells me that when he was discharged previously she was not ready to have him placed but now she realizes he is unable to care for himself. Per the step dtr patient is also burning things on the stove because he forgets about them. He states he is having an intermittent frontal headache and also right eye pains. Patient had his eye drops instilled in his eye here in the ER and he states his headache and eye pain are improved currently. His only complaint is some mild right elbow pain secondary to a lesion where he had recent skin cancer removed. He denies any chest pain, SOB, cough, fevers, chills, abdominal pain or nausea or vomiting. Patient denies any flashes of light or pain in left eye. Patient denies any new sxs to his right eye. Patient was evaluated by Dr Mijares (retinal specialist/opth) 03/18/23. He took some tylenol at home for the headache and he states this helped also. Patient was evaluated in the ER, had CT head with no significant change compared to the prior study of 02/28/23. Per the ER physician this is an admisssion for placement due to his dementia and family no longer able to care for his and patient not safe or able to care for himself. CBC, CMP, troponin, lipase and PT.INR all stable. Last ER evaluation from 2 weeks ago ESR and CRP were normal - will repeat. CXR with Interstitial thickening and a hazy appearance to the left lower lobe. This may represent asymmetric congestive change or a developing pneumonitis. Patient denies any fevers or cough or congestion and only fine crackles in bases bilaterally. 94% on RA Principal Diagnosis R Eye conjunctival injection with hyphema and pain Discharge Exam GENERAL: 87 yo well-developed, well-nourished elderly WM. AAOx3. NAD. EYES: Right eye with conjunctival injection and watery discharge. Very small hyphema observed in right eye. Pupil is nonreactive. LUNGS: Clear to auscultation bilaterally. No W/R/R. CARDIOVASCULAR: Regular rate and rhythm. Discharge Data Allergies Allergy/AdvReac Type Severity Reaction Status Date / Time No Known Allergies Allergy Mild Verified 03/24/23 18:45 Consultations 03/24/23 17:23 ED Decision to Admit Stat Ordered Studies Chest X-Ray 03/24/23 16:13 XR chest 1V portable HISTORY: Chest pain, nonspecific COMPARISON: Chest 02/28/2023. FINDINGS: No pneumothorax. No pleural effusions. The heart is mildly enlarged. There are calcifications within the aortic knob. There are low lung volumes. Interstitial thickening and a hazy appearance to the left lower lobe. This may represent asymmetric congestive change or a developing pneumonitis. IMPRESSION: Interstitial thickening and a hazy appearance to the left lower lobe. This may represent asymmetric congestive change or a developing pneumonitis. ACT 112: Negative or not required by law. Electronically signed by: Kin Lozano M.D. 03/24/2023 5:[address] 03/24/23 16:[address] DOSE: 537.48 mGy.cm HISTORY: Right-sided headache. TECHNIQUE: Multiaxial CT images of the head were performed without the use of intravenous contrast. Automated exposure control was utilized for this study. A dose lowering technique was utilized adhering to the principles of ALARA. Comparison: Head CT 02/28/2023. Findings: The paranasal sinuses and mastoid air cells are clear. The calvarium and skull base are intact. There is no mass, hematoma, midline shift, acute infarct. White matter hypodensity is nonspecific but suggestive of microvascular ischemic change. The ventricles and sulci demonstrate mild age-related involutional changes. Impression: No significant change compared to the prior study. No acute intracranial abnormality. ACT 112: Negative or not required by law. Electronically signed by: Kin Lozano M.D. 03/24/2023 4:59 PM Hospital Course (1) History of ischemic cerebrovascular accident (CVA) with residual deficit: Chronic/stable - PT/OT consulted to assist in d/c - recommending rehab followed by 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 Mijares, that he saw on 03/18 to f/u with him this week if possible to reassess IOP (3) Dementia: Dementia/depression Chronic/stable - Oriented x3 - Takes Lexapro but no dementia medications (4) HTN (hypertension): Chronic and stable - BP well controlled, continue lisinopril Plan Patient's daughter has now decided to have him return home with home health services and apply for additional help. Information provided to her by medical case manager. He is medically stable for discharge from the hospital today. No changes to his medications have been made other than reiterating to her to resume his Rhopressa drops. He should f/u with pcp within 1 week of discharge. Updated pt's daughter via phone. Plan has been d/w Dr. Gibbons who is in agreement with aforementioned. Total Time Total Time Spent Total Time Spent (In Minutes): >30 minutes Discharge Plan Discharge Items Patient Disposition: Home - Home Health Services Reason For Visit: HEADACHE AND DEMENTIA Discharge Diagnosis: right eye pain likely from increased intraocular pressure Activity: Resume your previous activity Non-emergency contact: Primary Care Provider Call non-emergency contact if: you have any medication questions Follow-up/Referrals: Martina Alvarez MD [Primary Care Provider] - Diet: Regular Addtl Attending Provider Instructions: You were hospitalized due to pain in your right eye which was causing a headache. Upon examination, you were noted to have a small amount of blood in the part of your eye that contains the iris. This should resolve with time. This could have lead to an increase in the pressure in your eye which caused pain. You have been restarted on your Rhopressa drops that were stopped at your last appointment with the retina specialist on 03/18/23. Please continue taking them as you were taking them prior to stopping. Also continue taking your Prednisolone acetate drops and your Simbrinza drops twice per day. Although these are not listed on your medication list, please continue to take them. All of your other medications can be continued as prescribed. No changes have been made. Case management is arranging for home physical and occupational therapy as well as prison services. You could also apply for waiver services to assist you at home as well as meals on wheels so that you do not have to worry about cooking for yourself. Please follow up with your family doctor within 1 week of discharge sooner if needed. If you have any questions or concerns following your discharge, you may call the nonemergency contact number listed on your discharge paperwork. In the event of a medical emergency, call 911. Pending Studies at Discharge: No Stand-Alone Forms: My [facility], Smoking Cessation Medications and DC Order Prescriptions: Continued valacyclovir 500 mg tablet 500 mg PO BID Qty: 180 1RF atorvastatin 40 mg tablet 40 mg PO QAM 30 Days Qty: 90 3RF clopidogrel 75 mg tablet 75 mg PO QAM 30 Days Qty: 90 3RF lisinopril 10 mg tablet 10 mg PO DAILY Qty: 90 3RF aspirin [Adult Low Dose Aspirin] 81 mg tablet,delayed release (DR/EC) 81 mg PO QAM escitalopram oxalate [Lexapro] 5 mg tablet 5 mg PO HS pantoprazole 40 mg tablet,delayed release (DR/EC) 40 mg PO DAILY Rx Instructions: TAKE ONE TABLET BY MOUTH EVERY DAY Discharge Orders: Discharge Order (Routine); Ordered 03/26/23 Ordered By: Christine Vigil Admission Data Admit Date/Time: 03/25/23 13:23 Attending Provider: Mike Gibbons Admit Provider: Farhat Naranjo Primary Care Provider: Martina Alvarez Other Providers: Farhat Naranjo Coding Level of Care Code 82086 INP/OBS DISCH >30 MIN Diagnoses History of ischemic cerebrovascular accident (CVA) with residual deficit I69.30 Blind painful right eye H54.40; H57.11 Dementia F03.90 HTN (hypertension) I10 Home Health Attestation I certify that this patient is under my care and that I, or a physicians wet process assistant head miller working with me, had a face to-face encounter that meets the home health [id number] encounter requirements with this patient. The encounter with the patient was in whole, or in part, for the following medical condition, which is the primary reason for home health care (list medical condition): I certify that, based on my findings, the following services are medically necessary home health services: My clinical findings support the need for the above services because: Further, I certify that my clinical findings support that this patient is ricardo ebound (i.e. absences from home require considerable and taxing effort and are for medical reasons or judaism services or infrequently or of short duration when for other reasons) because: Certification for Home Health Services: Based on the above findings, I certify that this patient is confined to the home and needs intermittent prison care, physical therapy and/or speech therapy or continues to need occupational therapy. The patient is under my care, and I have initiated the establishment of the plan of care. This patient will be followed by a physician who will periodically review the plan of care.
== END 2023-03-26 15:30 | disposition home health service (06) | DRG 125 ==
LOC: 3N 16:03 → ED 16:03 → SUATTDRO 18:30 → 3N 19:50